=== PATIENT | female | born 1970 | race Caucasian/White ===

== ENCOUNTER 2023-01-04 07:28 | Outpatient (REF) | payer OTHER, SELFPAY ==
--- NOTE | ~2023-01-04 | US_ITS ---
EXAMINATION: US ABDOMEN COMPLETE CLINICAL INFORMATION: Right upper quadrant abdominal pain. COMPARISON: None available. TECHNIQUE: Real-time imaging of the abdominal viscera. FINDINGS: PANCREAS: Normal. ABDOMINAL AORTA: The proximal, mid, and distal segments are normal in caliber. INFERIOR VENA CAVA: Visualized portions are normal. LIVER: Normal. The liver is normal in size. The liver contour is normal. Parenchymal echogenicity is normal. No focal hepatic lesion. There is no intrahepatic biliary duct dilatation seen. GALLBLADDER: Gallbladder is contracted. No gallstones are seen. Gallbladder wall thickness is increased measuring 6 mm. This may be related to contracted gallbladder. COMMON BILE DUCT: Slightly dilated measuring 0.9 cm in diameter. RIGHT KIDNEY: Normal. No hydronephrosis. No renal calculi or focal parenchymal lesions. The kidney measures 11.5 cm in maximum dimension. LEFT KIDNEY: Normal. No hydronephrosis. No renal calculi or focal parenchymal lesions. The kidney measures 12.0 cm in maximum dimension. SPLEEN: Normal. The spleen measures 9.4 cm in maximum dimension. FREE FLUID: None. US/US abdomen complete IMPRESSION: Contracted gallbladder. Mild dilatation of the common bile duct. No gallstones seen.
[2023-01-04 08:32] LABS: MANUAL DIFF FLAG NO
[2023-01-04 09:07] LABS: Basophils Percent Auto 0.4 % (0-2); Eosinophils Absolute Auto 0.1 X10*3/uL (0.0-0.4); Eosinophils Percent Auto 2.8 % (0-4); Hematocrit 39.9 % (37.0-47.0); Hemoglobin 13.5 g/dl (12.0-16.0); Imm Gran Abs Auto 0.01 X10*3/uL (0.00-0.03); Imm Gran Pct Auto 0.2 % (0.0-0.4); Lymphocytes Absolute Auto 1.4 X10*3/uL (1.2-4.9); Lymphocytes Percent Auto 30.7 % (20-40); Mean Corpuscular HGB Conc 33.8 g/dl (31.0-35.0); Mean Corpuscular Hemoglobin 31.6 pg (27.0-33.0); Mean Corpuscular Volume 93.4 fL (80.0-98.0); Mean Platelet Volume 9.6 fL (9.4-12.3); Monocytes Absolute Auto 0.5 X10*3/uL (0.1-1.2); Monocytes Percent Auto 10.6 % (2-11); Neutrophils Absolute Auto 2.6 x10*3/uL (2.0-8.3); Neutrophils Percent Auto 55.3 % (45-73); Platelet Count 231 X10*3/uL (160-400); Red Blood Count 4.27 X10*6/uL (4.20-5.50); Red Cell Distribution Width 12.3 % (11.0-16.0); White Blood Count 4.6 X10*3/uL (4.8-10.8)
[2023-01-04 09:47] LABS: Alanine Aminotransferase 18 U/L (0-31); Albumin Level 4.6 g/dL (3.5-5.0); Alkaline Phosphatase 52 U/L (39-117); Anion Gap 15 (12-20); Aspartate Amino Transferase 25 U/L (5-31); Bilirubin Total 0.4 mg/dL (0.0-1.0); Blood Urea Nitrogen 18 mg/dL (9-16); Calcium 9.6 mg/dL (8.4-10.2); Carbon Dioxide 28 mmol/L (22-29); Chloride 103 mmol/L (96-108); Cholesterol 266 mg/dL; Estimated Glomerular Filt Rate > 60; Glucose Fasting 96 mg/dL (60-99); HDL Cholesterol 75 mg/dL; LDL Cholesterol Calculated 175 mg/dl; Potassium 4.3 mmol/L (3.3-5.1); Sodium 142 mmol/L (135-145); Total Protein 7.1 g/dL (6.5-8.0); Triglycerides 84 mg/dL
[2023-01-04 10:09] LABS: Thyroid Stimulating Hormone 2.34 uIU/mL (0.32-4.0)
== END 2023-01-04 07:29 | disposition home or self-care (01) ==
LOC: HO.US 07:28
PROVIDERS: Absent Provider Internal Medicine; PCP Internal Medicine; Visit Provider Internal Medicine
DX: Z13.0 Encounter for screening for diseases of the blood and blood-forming organs and certain disorders involving the immune mechanism (principal); R10.11 Right upper quadrant pain; I10 Essential (primary) hypertension; E03.9 Hypothyroidism, unspecified; E78.5 Hyperlipidemia, unspecified
CPT/HCPCS: 36415; 76700; 80053; 80061; 84443; 85025

== ENCOUNTER 2023-01-05 08:09 | Day surgery (SDC) | payer OTHER, SELFPAY ==
--- NOTE | 2023-01-04 10:57 | P.CONAN_ITS ---
Documented by User: Grazyna Smith NP 01/04/23 11:01 HPI - Anesthesia Eval Consult details Narrative: 52yo F for Colonoscopy Chronic prn opioids [facility] Active Problems Active Problems: All Active Problems (Updated 01/04/23 @ 10:18 by Lucie Hyatt RN) Hypertension (Acute) Back pain (Acute) Past Medical History Medical History Back pain Hypertension Kidney stones S/P extracorporeal shock wave therapy Family History Family History Mother No problems noted. Father No problems noted. Surgical History Surgical History H/O cosmetic plastic surgery History of tonsillectomy and adenoidectomy Hx of tonsillectomy Social History Social History Housing: House Patient Tobacco Use Status: Never used Tobacco e-Cigarette/Vaping Use: Never Used Second Hand Smoke Exposure: No Use of substances other than those prescribed or required for medical reasons: No Are you DNR?: No Advance Directives: No Advance Directives Information Provided: Yes service: No Current occupational status: disabled Cognitive needs: No Hearing needs: No Vision needs: No Meds Allergies Allergy/AdvReac Type Severity Reaction Status Date / Time Sulfa (Sulfonamide Allergy Unknown Unknown Verified 06/28/22 09:04 Antibiotics) Exam Exam Date and Time: January 04, 2023 1057 Pertinent Lab Results Pertinent Lab Results: Laboratory Tests 01/04/23 01/04/23 08:31 08:31 WBC 4.6 L Hgb 13.5 Hct 39.9 Plt Count 231 Sodium 142 Potassium 4.3 Chloride 103 Carbon Dioxide 28 BUN 18 H Creatinine 0.87 Assessment and Plan Assessment Anesthesia Assessment: Chart Reviewed Documented by User: Dulce Maria Forrester MD 01/05/23 09:17 PMF Past Medical History Medical History Back pain Hypertension Kidney stones S/P extracorporeal shock wave therapy Family History Family History Mother No problems noted. Father No problems noted. Family history of problems with anesthesia: No Surgical History Surgical History H/O cosmetic plastic surgery History of tonsillectomy and adenoidectomy Hx of tonsillectomy History of Problems with Anesthesia: No Social History Social History Housing: House Patient Tobacco Use Status: Never used Tobacco e-Cigarette/Vaping Use: Never Used Second Hand Smoke Exposure: No Use of substances other than those prescribed or required for medical reasons: No Are you DNR?: No Advance Directives: No Advance Directives Information Provided: Yes service: No Current occupational status: disabled Cognitive needs: No Hearing needs: No Vision needs: No Meds Allergies Allergy/AdvReac Type Severity Reaction Status Date / Time Sulfa (Sulfonamide Allergy Unknown Unknown Verified 06/28/22 09:04 Antibiotics) Exam Airway Mallampati Class: I TM Dist: >3cm Neck ROM: Full Loose/Missing/Broken Teeth: No Heart: rr Lungs: cta Assessment and Plan Assessment Anesthesia Assessment: Anesthesia Plan Discussed Final Anesthetic Review Family History of Problems with Anesthesia: No History of Problems with Anesthesia: No NPO: Yes ASA Class: I Final Preanesthetic Review: No Changes in Pt Med Stat, Meds/Allgs Chart Reviewed, Consent Obtained/Reviewed and Anes Risks/Benef Reviewed Patient Risk: Low Procedure Risk: Low Anesthetic Plan Anesthetic Plan: MAC: Disposition: Standard PACU
[2023-01-05 08:43] VITALS: BMI 22.3
[2023-01-05 08:51] VITALS: BP 150/91; PULSE 112; RESP 16; TEMP 37.1; O2SAT 100
[2023-01-05] MEDS: Lactated Ringers 1,000 ML 100 ML IVCONT (08:55)
[2023-01-05 10:47] VITALS: BP 126/80; PULSE 98; RESP 16; TEMP 36.3; O2SAT 99
[2023-01-05 11:02] VITALS: BP 145/91; PULSE 89; RESP 16; TEMP 36.3; O2SAT 98
--- NOTE | 2023-01-05 22:09 | OP_ITS ---
DATE OF SERVICE: 01/05/2023 SURGEON: Eric Pereira MD INDICATIONS: The patient presents for evaluation of abdominal pain and colorectal cancer screening. Full consent has been obtained from her for this, including risks of bleeding and perforation. PREOPERATIVE DIAGNOSIS: POSTOPERATIVE DIAGNOSIS: PROCEDURE PERFORMED: ESTIMATED BLOOD LOSS: COMPLICATIONS: ANESTHESIA: Medication used, monitored anesthesia care. ASSISTANTS: SPECIMENS: PREOPERATIVE DIAGNOSES: Abdominal pain and colorectal cancer screening. POSTOPERATIVE DIAGNOSES: Abdominal pain and colorectal cancer screening, hiatal hernia, rule out celiac disease, minimal gastritis, gastroesophageal reflux, colon polyp, diverticulosis, and internal hemorrhoids. PROCEDURES PERFORMED: Esophagogastroduodenoscopy with biopsies, and colonoscopy to the cecum and terminal ileum with biopsies and removal of polyps. DESCRIPTION OF PROCEDURE: Patient was placed in the left lateral decubitus position. The Olympus video gastroscope was passed in the posterior oropharynx and upper esophagus under direct vision. The scope was passed slowly to the distal esophagus. The gastroesophageal junction appeared at 35 cm. There is some slight irregularity consistent of reflux, but no definite evidence of Hayes's esophagus and no esophagitis. There is a small hiatal hernia. The scope was advanced to the pylorus and the duodenum was cannulated to the descending portion. The duodenum including the bulb appeared normal without mass or ulceration. Biopsies were obtained from the second and third portions of duodenum. The scope was withdrawn back in the stomach. The gastric antrum had some areas of erythema and edema, but no erosions or ulcerations. There was good peristalsis. Scope was retroflexed visualizing the proximal stomach carefully which appeared normal, without any sign of mass or ulceration. The scope was straightened. Biopsies were obtained from the gastric antrum. The scope was withdrawn back in the esophagus Biopsies were obtained at the EG junction at 35 cm. Proximal to that, the esophageal mucosa appeared normal. The scope was withdrawn from the patient. She was turned around for the colonoscopy. The digital rectal exam revealed no abnormalities. The Olympus video pediatric colonoscope was entered into the rectum and advanced easily to the cecum. Once in the cecum, I did identify normal appearing cecal pouch in the appendiceal orifice and a normal appearing ileocecal valve. The terminal ileum was cannulated and appeared normal. The scope was withdrawn back in the colon. The entire cecum and ileocecal valve appeared normal. Scope was slowly withdrawn assessing all mucosal surface carefully. Preparation was excellent. There was a mild amount of sigmoid diverticulosis. There was no sign of colitis or angiodysplasia . In the proximal rectum was an approximately 3 mm polyp, which was biopsied and completely removed with the cold biopsy forceps. I did not visualize any sign of other polyps. In the rectum, the scope was retroflexed visualizing internal hemorrhoids, but no other pathology. The rectal mucosa appeared normal. Scope was straightened and withdrawn from the patient. She tolerated the procedure well and was returned to the recovery area in stable condition. IMPRESSION: 1. Hiatal hernia. 2. Rule out gastritis. 3. Rule out celiac disease. 4. Rectal polyp. 5. Diverticulosis. 6. Internal hemorrhoids. PLAN: The results of the biopsies will be checked. If the polyp is a tubular adenoma, I would recommend a repeat colonoscopy in 5 years. If it is only hyperplastic, I would recommend a followup colonoscopy in 10 years. Given her ongoing symptoms and some inflammation with some signs of reflux noted, I will put her on a trial of omeprazole 20 mg daily for couple of months to see if that gives her any relief of her abdominal pain. A recent gallbladder ultrasound was negative for gallstones, but did show some thickening of the gallbladder wall with a contracted gallbladder. I will also order a HIDA scan with CCK to rule out acalculous cholecystis. She will be followed up in the office as well. This has all been discussed with . MD NAVJOT Mijares/ALEN / [id number] MTDD
--- NOTE | 2023-01-05 22:34 | PM.OP ---
Brief Operative Note Date of Service: 01/05/23 Pre-op diagnosis: Abdominal pain, Screening Post-op diagnosis: other (Hiatal hernia, Rectal polyp) Procedure: EGD with biopsies, Colonoscopy to the cecum with biopsy/removal of polyp Surgeon: Eric Pereira Anesthesia: MAC Was an Annual Greenhouse Manager used for this Procedure?: No Estimated blood loss (mL): 2.0 Pathology: other (A. Descending duodenum B. Gastric antrum C. EG Junction at 35cm D. Rectal polyp) Condition: stable Disposition: PACU
== END 2023-01-05 12:14 | disposition home or self-care (01) ==
PROVIDERS: PCP Internal Medicine; Visit Provider Internal Medicine
PROC: 0DJD8ZZ Inspection of Lower Intestinal Tract, Via Natural or Artificial Opening Endoscopic (ICD-10-PCS; CPT 45378; principal; 2023-01-05 09:30)
DX: Z12.11 Encounter for screening for malignant neoplasm of colon (principal); K62.1 Rectal polyp; K57.30 Diverticulosis of large intestine without perforation or abscess without bleeding; K64.8 Other hemorrhoids; R10.11 Right upper quadrant pain; K29.50 Unspecified chronic gastritis without bleeding; K21.9 Gastro-esophageal reflux disease without esophagitis; K44.9 Diaphragmatic hernia without obstruction or gangrene; I10 Essential (primary) hypertension; M54.9 Dorsalgia, unspecified; G89.29 Other chronic pain; Z87.442 Personal history of urinary calculi
CPT/HCPCS: 45380; 43239; 88305; 88342

== ENCOUNTER → 2023-02-11 09:29 | Outpatient (REF) | payer OTHER, SELFPAY ==
--- NOTE | ~2023-02-11 | NM_ITS ---
EXAMINATION: BILIARY TRACT IMAGING STUDY WITH CCK CLINICAL INFORMATION: Right upper quadrant abdominal pain, abnormal gallbladder ultrasound.. COMPARISON: No previous biliary scan is available for comparison. Abdominal ultrasound dated 01/04/2023 is available for comparison.. TECHNIQUE: Serial gamma scintillation camera images were obtained over the abdomen for a total observation period of 90 minutes following the intravenous administration of 5 mCi Tc-99m present in. FINDINGS: There is good concentration of activity in the liver by 5 minutes post injection. Biliary activity is visualized by 10 minutes. The gallbladder is well visualized by 50 minutes. Small bowel is well visualized by 25 minutes. At 60 minutes post radiopharmaceutical injection, a 30-minute infusion of 1.0 micrograms Sincalide was then begun and an additional 40 minutes of images were obtained. There is good emptying of the gallbladder. By the end of the study there is good clearance of activity from the liver and visualization of diffuse small bowel activity. The calculated gallbladder ejection fraction is 95% (normal gallbladder ejection fraction is greater than 35%). NM/NM hepatobiliary w pharm IMPRESSION: Visualization of the gallbladder is evidence of a patent cystic duct and strong evidence against the diagnosis of acute cholecystitis. The common bile duct is patent. Gallbladder emptying and ejection fraction are normal. Liver function appears normal.
== END ==
LOC: HO.NUCMED 09:29
PROVIDERS: PCP Internal Medicine; Visit Provider Internal Medicine
DX: R10.11 Right upper quadrant pain (principal); R93.2 Abnormal findings on diagnostic imaging of liver and biliary tract
CPT/HCPCS: 78227; A9537

== ENCOUNTER 2023-05-24 11:26 | Outpatient (AMB) | payer OTHER, SELFPAY ==
--- NOTE | 2023-05-24 11:38 | MHC.PC.OV ---
Vital Signs 05/24/23 11:39 Height 5 ft 4 in Weight 133 lb 4 oz BMI 22.9 BP 120/64 Blood Pressure Location Lt brachial Position Sitting Pulse 76 Pulse Source Pulse Oximeter Pulse Oximetry (%) 96 Oxygen Delivery Method Room Air Intake Visit Reasons: Medication Follow Up Intake Note: Patient is here to follow up on medication review. Medical Equipment Repair Technician Required: No Sales Operations Lead: Not Required per policy Accompanied by: Self / Same As Patient Allergies Sulfa (Sulfonamide Antibiotics) Allergy (Unknown, Verified 05/24/23 11:39) Unknown Medication List - Last Reconciled 05/25/23 by Hua Duarte MD atenolol 25 mg PO DAILY tfpmyrbqbu-uuntkdmtzmqbn-foig 50-325-40 mg 2 tabs PO Q4-6H PRN cyclobenzaprine 10 mg PO TID 30 days dicyclomine 20 mg PO QID 30 days hydrochlorothiazide 25 mg PO DAILY lorazepam 1 mg PO TID PRN 28 days oxycodone 5 mg PO Q4H PRN oxycodone-acetaminophen 7.5-325 mg 1 tab PO Q4H PRN 28 days Tobacco use date assessed: 05/24/23 Dental Screening Dental Screen Date: 05/24/23 Did you have a dental visit in the last 12 months?: No Did you have a dental problem in the last 6 months where you did not have access to dental care?: No Was dental information given to patient?: Patient has dentist HPI Medication Follow Up HPI Details chronic back pain on rx; stable ;compliant [facility] Medical History (Updated 05/25/23 @ 09:06 by Hua Duarte MD) Back pain Hypertension Kidney stones S/P extracorporeal shock wave therapy Surgical History H/O cosmetic plastic surgery History of tonsillectomy and adenoidectomy Hx of tonsillectomy Family History Mother No problems noted. Father No problems noted. Social History (Updated 05/24/23 @ 11:42 by GIDEON Vidal) Housing: House Alcohol intake: current Alcohol intake frequency: a few times a week Patient Tobacco Use Status: Never used Tobacco e-Cigarette/Vaping Use: Never Used Second Hand Smoke Exposure: No service: No Current occupational status: disabled Cognitive needs: No Hearing needs: No Vision needs: Yes (reading glasses) Questionnaire PHQ-9 Over the last 2 weeks, how often have you been bothered by any of the following problems? 1. Little interest or pleasure in doing things: not at all 2. Feeling down, depressed, or hopeless: not at all 3. Trouble falling or staying asleep, or sleeping too much: not at all 4. Feeling tired or having little energy: not at all 5. Poor appetite or overeating: not at all 6. Feeling bad about yourself - or that you are a failure or have let yourself or your family down: not at all 7. Trouble concentrating on things, such as reading the newspaper or watching television: not at all 8. Moving or speaking so slowly that other people could have noticed. Or the opposite - being so fidgety or restless that you have been moving around a lot more than usual: not at all 9. Thoughts that you would be better off or of hurting yourself in some way: not at all Total score: 0 Depression Screening Interpretation: Negative Source: Developed by Drs. Eric Muñoz, Cecelia Mckinney, Sukumar Maradiaga and colleagues, with an educational favian from [employer]. Thrive Questionnaire Date Thrive assessed: 05/24/23 I am a: Patient What is your living situation today?: I have a steady place to live Within the past 12 months, did the food you bought not last and you didn't have the money to get more?: Never true Within the past 12 months, did you worry whether your food would run out before you got money to buy more?: Never true Do you have trouble paying for medicines?: No Do you have trouble getting transportation to medical appointments?: No Do you have trouble paying your heating and electricity bill?: No Do you have trouble taking care of your child, family member or friend?: No Do you have trouble with day-to-day activities such as bathing, preparing meals, shopping, managing finances, etc.?: No Are you currently unemployed and looking for a job?: No Are you interested in more education?: No Currently or been in a relationship where the following occur: no concerns reported AUDIT C Alcohol Use Questionnaire (AUDIT-C) 1. How often do you have a drink containing alcohol?: 2-3 times a week 2. How many drinks containing alcohol do you have on a typical day when you are drinking?: 1 or 2 Total Score: 3 YULY-7 AMB Questionnaire YULY-7 Date YULY - 7 assessed: 05/24/23 Feeling nervous, anxious, or on edge: 1 = Several days (currently on medication) Not being able to stop or control worryin = Not at all Worrying too much about different things: 0 = Not at all Trouble relaxin = Not at all Being so restless that it is hard to sit still: 0 = Not at all Becoming easily annoyed or irritable: 0 = Not at all Feeling afraid as if something awful might happen: 0 = Not at all Total YULY-7 score (0-4 normal; 5-9 mild; 10-14 moderate; 15-21 severe): 1 Source: Developed by Drs. Eric Muñoz, Cecelia Mckinney, Sukumar Maradiaga and colleagues, with an educational favian from [employer]. Review of Systems Const Denies chills, Denies headache(s) and Denies weight loss ENT Denies headache(s) Card Denies chest pain, Denies syncope, Denies irregular heart rhythm and Denies dyspnea Resp Denies chest congestion, Denies cough and Denies dyspnea GI Denies abdominal pain, Denies change in stool character, Denies nausea and Denies vomiting Musc Denies deformity and Denies joint swelling Neuro Denies syncope and Denies headache(s) Physical exam (Primary Care) Vital Signs: Last Vital Signs Pulse 76 05/24/23 11:39 BP 120/64 05/24/23 11:39 Pulse Ox 96 05/24/23 11:39 Oxygen Delivery Method Room Air 05/24/23 11:39 BMI result Body Mass Index 22.9 Tobacco/Smoking Status: Tobacco use Status Tobacco use date assessed 05/24/23 05/24/23 11:44 Patient Tobacco Use Status Never used Tobacco 05/24/23 11:44 e-Cigarette/Vaping Use Never Used 05/24/23 11:44 PHQ-9: PHQ-9 Score PHQ-9: Total score 0 05/24/23 11:44 Depression Screening Interpretation: Negative Thrive Assessment: Date of Thrive Assessment Date Thrive assessed 05/24/23 05/24/23 11:44 Currently or been in a relationship where the following occur: no concerns reported Const General: comfortable, no acute distress and alert Neck Neck: Yes no lymphadenopathy Thyroid: Thyroid normal Resp Effort & Inspection: normal respiratory effort Auscultation: clear to auscultation bilaterally Percussion: percussion normal Cardio Jugular venous distension: no JVD Palpation: normal PMI Rate: regular rate Rhythm: regular rhythm Heart sounds: S1 normal heart sound present and S2 normal heart sound present GI Inspection: Yes normal to inspection Palpation (GI): No hepatosplenomegaly present Skin General skin exam: no rashes or lesions noted Extrem General: Yes no clubbing, cyanosis or edema Assessment and Plan Assessment & Plan (1) Back pain: Code(s): M54.9 - Dorsalgia, unspecified Plan: stable; same rx Medications: Refilled dicyclomine 20 mg PO QID 120 tabs 2RF 30 days Coding Level of Care Code Est Pt Level 3 (27225) Diagnoses Back pain M54.9
[2023-05-24 11:39] VITALS: BP 120/64; PULSE 76; O2SAT 96; BMI 22.9
== END 2023-05-24 11:56 | disposition home or self-care (01) ==
PROVIDERS: PCP Internal Medicine; Visit Provider Internal Medicine
DX: M54.9 Dorsalgia, unspecified (principal)
CPT/HCPCS: 99213

== ENCOUNTER 2023-08-10 08:19 | Outpatient (AMB) | payer OTHER, SELFPAY ==
[2023-08-10 08:31] VITALS: BP 140/80; PULSE 58; O2SAT 98; BMI 23.9
--- NOTE | 2023-08-10 08:31 | A.OFFPC_ITS ---
Vital Signs 08/10/23 08:31 Height 5 ft 4 in Weight 139 lb BMI 23.9 BP 140/80 H Blood Pressure Location Lt brachial Position Sitting Pulse 58 Pulse Source Pulse Oximeter Pulse Oximetry (%) 98 Oxygen Delivery Method Room Air Intake Visit Reasons: Med review Design Manager: Not Required per policy Accompanied by: Self / Same As Patient Allergies Sulfa (Sulfonamide Antibiotics) Allergy (Unknown, Verified 08/10/23 08:32) Unknown Medication List - Last Reconciled 08/10/23 by Hua Duarte MD atenolol 25 mg PO DAILY npndblewst-tzllqgneqcvkg-oxha 50-325-40 mg 2 tabs PO Q4-6H PRN cyclobenzaprine 10 mg PO TID 30 days dicyclomine 20 mg PO QID 30 days hydrochlorothiazide 25 mg PO DAILY lorazepam 1 mg PO TID PRN 28 days oxycodone 5 mg PO Q4H PRN oxycodone-acetaminophen 7.5-325 mg 1 tab PO Q4H PRN 28 days Tobacco use date assessed: 05/24/23 Dental Screening Dental Screen Date: 08/10/23 Did you have a dental visit in the last 12 months?: No Did you have a dental problem in the last 6 months where you did not have access to dental care?: No Was dental information given to patient?: Patient has dentist HPI Med review HPI Details chronic back pain on rx; doing well and compliant [facility] Medical History S/P extracorporeal shock wave therapy Kidney stones Hypertension Back pain Surgical History H/O cosmetic plastic surgery Hx of tonsillectomy History of tonsillectomy and adenoidectomy Family History Mother No problems noted. Father No problems noted. Social History Housing: House Alcohol intake: current Alcohol intake frequency: a few times a week Patient Tobacco Use Status: Never used Tobacco e-Cigarette/Vaping Use: Never Used Second Hand Smoke Exposure: No service: No Current occupational status: disabled Cognitive needs: No Hearing needs: No Vision needs: Yes (reading glasses) Questionnaire PHQ-9 Over the last 2 weeks, how often have you been bothered by any of the following problems? 1. Little interest or pleasure in doing things: not at all 2. Feeling down, depressed, or hopeless: not at all 3. Trouble falling or staying asleep, or sleeping too much: not at all 4. Feeling tired or having little energy: not at all 5. Poor appetite or overeating: not at all 6. Feeling bad about yourself - or that you are a failure or have let yourself or your family down: not at all 7. Trouble concentrating on things, such as reading the newspaper or watching television: not at all 8. Moving or speaking so slowly that other people could have noticed. Or the opposite - being so fidgety or restless that you have been moving around a lot more than usual: not at all 9. Thoughts that you would be better off or of hurting yourself in some way: not at all Total score: 0 Depression Screening Interpretation: Negative Depression Screening Done: Yes 93906 - PHQ-9 Billing: Yes Source: Developed by Drs. Eric Muñoz, Cecelia Mckinney, Sukumar Maradiaga and colleagues, with an educational favian from [employer]. Thrive Questionnaire Date Thrive assessed: 05/24/23 AUDIT C Alcohol Use Questionnaire (AUDIT-C) 1. How often do you have a drink containing alcohol?: 2-3 times a week 2. How many drinks containing alcohol do you have on a typical day when you are drinking?: 1 or 2 Total Score: 3 YULY-7 AMB Questionnaire YULY-7 Date YULY - 7 assessed: 05/24/23 Source: Developed by Drs. Eric Muñoz, Cecelia Mckinney, Sukumar Maradiaga and colleagues, with an educational favian from [employer]. Review of Systems Const Denies chills, Denies headache(s) and Denies weight loss ENT Denies headache(s) Card Denies chest pain, Denies syncope, Denies irregular heart rhythm and Denies dyspnea Resp Denies chest congestion, Denies cough and Denies dyspnea GI Denies abdominal pain, Denies change in stool character, Denies nausea and Denies vomiting Musc Denies deformity and Denies joint swelling Neuro Denies syncope and Denies headache(s) Physical exam (Primary Care) Vital Signs: Last Vital Signs Pulse 58 08/10/23 08:31 BP 140/80 H 08/10/23 08:31 Pulse Ox 98 08/10/23 08:31 Oxygen Delivery Method Room Air 08/10/23 08:31 BMI result Body Mass Index 23.9 Tobacco/Smoking Status: Tobacco use Status Tobacco use date assessed 05/24/23 08/10/23 08:36 Patient Tobacco Use Status Never used Tobacco 08/10/23 08:36 e-Cigarette/Vaping Use Never Used 08/10/23 08:36 PHQ-9: PHQ-9 Score PHQ-9: Total score 0 08/10/23 08:49 Depression Screening Interpretation: Negative Thrive Assessment: Date of Thrive Assessment Date Thrive assessed 05/24/23 08/10/23 08:36 Const General: cooperative, comfortable, no acute distress and alert Neck Neck: Yes no lymphadenopathy Thyroid: Thyroid normal Resp Effort & Inspection: normal respiratory effort Auscultation: clear to auscultation bilaterally Percussion: percussion normal Cardio Jugular venous distension: no JVD Palpation: normal PMI Rate: regular rate Rhythm: regular rhythm Heart sounds: S1 normal heart sound present and S2 normal heart sound present GI Inspection: Yes normal to inspection Palpation (GI): No hepatosplenomegaly present Skin General skin exam: no rashes or lesions noted Extrem General: Yes no clubbing, cyanosis or edema Assessment and Plan Assessment & Plan (1) Back pain: Code(s): M54.9 - Dorsalgia, unspecified Plan: stable; same rx Orders: Orders Influenza [id number] Immunization Today Z23 - Encounter for immunization Medications: New flu vacc [id number] 6mos up(PF) 0.5 mL IM ONCE 0.5 mL 0RF Z23 - Encounter for immunization Coding Level of Care Code Est Pt Level 3 (18919) Diagnoses Back pain M54.9
== END 2023-08-10 08:53 | disposition home or self-care (01) ==
PROVIDERS: PCP Internal Medicine; Visit Provider Internal Medicine
DX: M54.9 Dorsalgia, unspecified (principal); Z23 Encounter for immunization
CPT/HCPCS: 90471; 90686; 99213

== ENCOUNTER 2023-09-07 10:39 | Outpatient (AMB) | payer OTHER, SELFPAY ==
[2023-09-07 10:41] VITALS: BP 136/88; PULSE 64; O2SAT 99; BMI 23.7
--- NOTE | 2023-09-07 10:41 | MHC.PC.OV ---
Vital Signs 09/07/23 10:41 Height 5 ft 4 in Weight 138 lb BMI 23.7 BP 136/88 Blood Pressure Location Lt brachial Position Sitting Pulse 64 Pulse Source Pulse Oximeter Pulse Oximetry (%) 99 Oxygen Delivery Method Room Air Intake Visit Reasons: Med Management Twisting Machine Operator Required: No Belly Packer: Not Required per policy Accompanied by: Self / Same As Patient Allergies Sulfa (Sulfonamide Antibiotics) Allergy (Unknown, Verified 09/07/23 10:42) Unknown Medication List - Last Reconciled 09/07/23 by Hua Duarte MD atenolol 25 mg PO DAILY krnyevruko-lfdkwyirwkvoj-wrgi 50-325-40 mg 2 tabs PO Q4-6H PRN cyclobenzaprine 10 mg PO TID 30 days dicyclomine 20 mg PO QID hydrochlorothiazide 25 mg PO DAILY lorazepam 1 mg PO TID PRN 28 days oxycodone 5 mg PO Q4H PRN oxycodone-acetaminophen 7.5-325 mg 1 tab PO Q4H PRN 28 days Tobacco use date assessed: 05/24/23 Dental Screening Dental Screen Date: 09/07/23 Did you have a dental visit in the last 12 months?: Yes Did you have a dental problem in the last 6 months where you did not have access to dental care?: No Was dental information given to patient?: Patient has dentist HPI Med Management HPI Details chronic back pain on rx; doing well; compliant [facility] Medical History S/P extracorporeal shock wave therapy Kidney stones Hypertension Back pain Surgical History H/O cosmetic plastic surgery Hx of tonsillectomy History of tonsillectomy and adenoidectomy Family History Mother No problems noted. Father No problems noted. Social History Housing: House Alcohol intake: current Alcohol intake frequency: a few times a week Patient Tobacco Use Status: Never used Tobacco e-Cigarette/Vaping Use: Never Used Second Hand Smoke Exposure: No service: No Current occupational status: disabled Cognitive needs: No Hearing needs: No Vision needs: Yes (reading glasses) Questionnaire Thrive Questionnaire Date Thrive assessed: 05/24/23 YULY-7 AMB Questionnaire YULY-7 Date YULY - 7 assessed: 05/24/23 Source: Developed by Drs. Eric Muñoz, Cecelia Mckinney, Sukumar Maradiaga and colleagues, with an educational favian from [employer]. Review of Systems Const Denies chills, Denies headache(s) and Denies weight loss ENT Denies headache(s) Card Denies chest pain, Denies syncope, Denies irregular heart rhythm and Denies dyspnea Resp Denies chest congestion, Denies cough and Denies dyspnea GI Denies abdominal pain, Denies change in stool character, Denies nausea and Denies vomiting Musc Denies deformity and Denies joint swelling Neuro Denies syncope and Denies headache(s) Physical exam (Primary Care) Vital Signs: Last Vital Signs Pulse 64 09/07/23 10:41 BP 136/88 09/07/23 10:41 Pulse Ox 99 09/07/23 10:41 Oxygen Delivery Method Room Air 09/07/23 10:41 BMI result Body Mass Index 23.7 Tobacco/Smoking Status: Tobacco use Status Tobacco use date assessed 05/24/23 09/07/23 10:42 Patient Tobacco Use Status Never used Tobacco 09/07/23 10:42 e-Cigarette/Vaping Use Never Used 09/07/23 10:42 Thrive Assessment: Date of Thrive Assessment Date Thrive assessed 05/24/23 09/07/23 10:42 Const General: cooperative, comfortable, no acute distress and alert Neck Neck: Yes no lymphadenopathy Thyroid: Thyroid normal Resp Effort & Inspection: normal respiratory effort Auscultation: clear to auscultation bilaterally Percussion: percussion normal Cardio Jugular venous distension: no JVD Palpation: normal PMI Rate: regular rate Rhythm: regular rhythm Heart sounds: S1 normal heart sound present and S2 normal heart sound present GI Inspection: Yes normal to inspection Palpation (GI): No hepatosplenomegaly present Skin General skin exam: no rashes or lesions noted Extrem General: Yes no clubbing, cyanosis or edema Assessment and Plan Assessment & Plan (1) Back pain: Code(s): M54.9 - Dorsalgia, unspecified Plan: stable; same rx Medications: Refilled lorazepam 1 mg PO TID 28 days PRN 84 tabs 5RF anxiety qqkwgwnrom-ybvsoozpabsmb-fopb 50-325-40 mg do not exceed 6 tabs per 24 hrs 2 tabs PO Q4-6H PRN 90 tabs 0RF pain oxycodone Partial Fill upon patient request. 5 mg PO Q4H PRN 168 tabs 0RF pain Coding Level of Care Code Est Pt Level 3 (76949) Diagnoses Back pain M54.9
== END 2023-09-07 11:53 | disposition home or self-care (01) ==
PROVIDERS: PCP Internal Medicine; Visit Provider Internal Medicine
DX: M54.9 Dorsalgia, unspecified (principal)
CPT/HCPCS: 99213

== ENCOUNTER 2023-10-05 09:40 | Outpatient (AMB) | payer OTHER, SELFPAY ==
[2023-10-05 09:41] VITALS: BP 124/60; PULSE 64; O2SAT 96; BMI 23.9
--- NOTE | 2023-10-05 09:41 | MHC.PC.OV ---
Vital Signs 10/05/23 09:41 Height 5 ft 4 in Weight 139 lb BMI 23.9 BP 124/60 Blood Pressure Location Lt brachial Position Sitting Pulse 64 Pulse Source Pulse Oximeter Pulse Oximetry (%) 96 Oxygen Delivery Method Room Air Intake Visit Reasons: Med management Bakery Demonstrator Required: No Food Beverage Supervisor: Not Required per policy Accompanied by: Self / Same As Patient Allergies Sulfa (Sulfonamide Antibiotics) Allergy (Unknown, Verified 10/05/23 09:41) Unknown Medication List - Last Reconciled 10/05/23 by Hua Duarte MD atenolol 25 mg PO DAILY kicxyxuhyk-mwcbudlegounq-hulv 50-325-40 mg 2 tabs PO Q4-6H PRN cyclobenzaprine 10 mg PO TID 30 days dicyclomine 20 mg PO QID hydrochlorothiazide 25 mg PO DAILY lorazepam 1 mg PO TID PRN 28 days oxycodone 5 mg PO Q4H PRN oxycodone-acetaminophen 7.5-325 mg 1 tab PO Q4H PRN 28 days Tobacco use date assessed: 10/05/23 Dental Screening Dental Screen Date: 10/05/23 Did you have a dental visit in the last 12 months?: Yes Did you have a dental problem in the last 6 months where you did not have access to dental care?: No Was dental information given to patient?: Patient has dentist HPI Med management HPI Details chronic back pain on rx; doing well and compliant [facility] Medical History S/P extracorporeal shock wave therapy Kidney stones Hypertension Back pain Surgical History H/O cosmetic plastic surgery Hx of tonsillectomy History of tonsillectomy and adenoidectomy Family History Mother No problems noted. Father No problems noted. Social History Housing: House Alcohol intake: current Alcohol intake frequency: a few times a week Patient Tobacco Use Status: Never used Tobacco e-Cigarette/Vaping Use: Never Used Second Hand Smoke Exposure: No service: No Current occupational status: disabled Cognitive needs: No Hearing needs: No Vision needs: Yes (reading glasses) Questionnaire PHQ-9 Over the last 2 weeks, how often have you been bothered by any of the following problems? 1. Little interest or pleasure in doing things: not at all 2. Feeling down, depressed, or hopeless: not at all 3. Trouble falling or staying asleep, or sleeping too much: not at all 4. Feeling tired or having little energy: not at all 5. Poor appetite or overeating: not at all 6. Feeling bad about yourself - or that you are a failure or have let yourself or your family down: not at all 7. Trouble concentrating on things, such as reading the newspaper or watching television: not at all 8. Moving or speaking so slowly that other people could have noticed. Or the opposite - being so fidgety or restless that you have been moving around a lot more than usual: not at all 9. Thoughts that you would be better off or of hurting yourself in some way: not at all Total score: 0 Depression Screening Interpretation: Negative Depression Screening Done: Yes 92361 - PHQ-9 Billing: Yes Source: Developed by Drs. Eric Muñoz, Cecelia Mckinney, Sukumar Maradiaga and colleagues, with an educational favian from [employer] Thrive Questionnaire Date Thrive assessed: 10/05/23 I am a: Patient What is your living situation today?: I have a steady place to live Within the past 12 months, did the food you bought not last and you didn't have the money to get more?: Never true Within the past 12 months, did you worry whether your food would run out before you got money to buy more?: Never true Do you have trouble paying for medicines?: No Do you have trouble getting transportation to medical appointments?: No Do you have trouble paying your heating and electricity bill?: No Do you have trouble taking care of your child, family member or friend?: No Do you have trouble with day-to-day activities such as bathing, preparing meals, shopping, managing finances, etc.?: No Are you currently unemployed and looking for a job?: No Are you interested in more education?: No Please select the resources that you would like help with: None AUDIT C Alcohol Use Questionnaire (AUDIT-C) 1. How often do you have a drink containing alcohol?: 2-3 times a week 2. How many drinks containing alcohol do you have on a typical day when you are drinking?: 1 or 2 Total Score: 3 YULY-7 AMB Questionnaire YULY-7 Date YULY - 7 assessed: 10/05/23 Feeling nervous, anxious, or on edge: 0 = Not at all Not being able to stop or control worryin = Not at all Worrying too much about different things: 0 = Not at all Trouble relaxin = Not at all Being so restless that it is hard to sit still: 0 = Not at all Becoming easily annoyed or irritable: 0 = Not at all Feeling afraid as if something awful might happen: 0 = Not at all Total YULY-7 score (0-4 normal; 5-9 mild; 10-14 moderate; 15-21 severe): 0 Source: Developed by Drs. Eric Muñoz, Cecelia Mckinney, Sukumar Maradiaga and colleagues, with an educational favian from [employer] Review of Systems Const Denies chills, Denies headache(s) and Denies weight loss ENT Denies headache(s) Card Denies chest pain, Denies syncope, Denies irregular heart rhythm and Denies dyspnea Resp Denies chest congestion, Denies cough and Denies dyspnea GI Denies abdominal pain, Denies change in stool character, Denies nausea and Denies vomiting Musc Denies deformity and Denies joint swelling Neuro Denies syncope and Denies headache(s) Physical exam (Primary Care) Vital Signs: Last Vital Signs Pulse 64 10/05/23 09:41 BP 124/60 10/05/23 09:41 Pulse Ox 96 10/05/23 09:41 Oxygen Delivery Method Room Air 10/05/23 09:41 BMI result Body Mass Index 23.9 Tobacco/Smoking Status: Tobacco use Status Tobacco use date assessed 10/05/23 10/05/23 09:42 Patient Tobacco Use Status Never used Tobacco 10/05/23 09:42 e-Cigarette/Vaping Use Never Used 10/05/23 09:42 PHQ-9: PHQ-9 Score PHQ-9: Total score 0 10/05/23 09:46 Depression Screening Interpretation: Negative Thrive Assessment: Date of Thrive Assessment Date Thrive assessed 10/05/23 10/05/23 09:42 Const General: cooperative, comfortable, no acute distress and alert Neck Neck: Yes no lymphadenopathy Thyroid: Thyroid normal Resp Effort & Inspection: normal respiratory effort Auscultation: clear to auscultation bilaterally Percussion: percussion normal Cardio Jugular venous distension: no JVD Palpation: normal PMI Rate: regular rate Rhythm: regular rhythm Heart sounds: S1 normal heart sound present and S2 normal heart sound present GI Inspection: Yes normal to inspection Palpation (GI): No hepatosplenomegaly present Skin General skin exam: no rashes or lesions noted Extrem General: Yes no clubbing, cyanosis or edema Assessment and Plan Assessment & Plan (1) Back pain: Code(s): M54.9 - Dorsalgia, unspecified Plan: stable; same rx Medications: Refilled qwtheblynw-nvjlsjgocpdah-rcfb 50-325-40 mg do not exceed 6 tabs per 24 hrs 2 tabs PO Q4-6H PRN 90 tabs 0RF pain lorazepam 1 mg PO TID 28 days PRN 84 tabs 5RF anxiety oxycodone Partial Fill upon patient request. 5 mg PO Q4H PRN 168 tabs 0RF pain Coding Level of Care Code Est Pt Level 3 (16314) Diagnoses Back pain M54.9
== END 2023-10-05 10:12 | disposition home or self-care (01) ==
PROVIDERS: PCP Internal Medicine; Visit Provider Internal Medicine
DX: M54.9 Dorsalgia, unspecified (principal)
CPT/HCPCS: 99213

== ENCOUNTER 2024-01-13 11:48 | Outpatient (AMB) | payer OTHER, SELFPAY ==
[2024-01-13 11:49] VITALS: BP 120/68; PULSE 78; O2SAT 92; BMI 23.2
--- NOTE | 2024-01-13 11:49 | A.OFFPC_ITS ---
Vital Signs 01/13/24 11:49 Height 5 ft 4 in Weight 135 lb BMI 23.2 BP 120/68 Blood Pressure Location Lt brachial Position Sitting Pulse 78 Pulse Source Pulse Oximeter Pulse Oximetry (%) 92 Oxygen Delivery Method Room Air Intake Visit Reasons: med visit Dental Officer Required: No Customer Assistance Representative: Not Required per policy Accompanied by: Self / Same As Patient Allergies Sulfa (Sulfonamide Antibiotics) Allergy (Unknown, Verified 01/13/24 11:49) Unknown Medication List - Last Reconciled 01/13/24 by Hua Duarte MD atenolol 25 mg PO DAILY pwcaalzwme-svmlrnmqtavvl-juzr 50-325-40 mg 2 tabs PO Q4-6H PRN cyclobenzaprine 10 mg PO TID 30 days dicyclomine 20 mg PO QID hydrochlorothiazide 25 mg PO DAILY lorazepam 1 mg PO TID PRN 28 days oxycodone 5 mg PO Q4H PRN oxycodone-acetaminophen 7.5-325 mg 1 tab PO Q4H PRN 28 days Tobacco use date assessed: 10/05/23 Dental Screening Dental Screen Date: 10/05/23 HPI med visit HPI Details chronic back pain on rx; compliant [facility] Medical History S/P extracorporeal shock wave therapy Kidney stones Hypertension Back pain Surgical History H/O cosmetic plastic surgery Hx of tonsillectomy History of tonsillectomy and adenoidectomy Family History Mother No problems noted. Father No problems noted. Social History Housing: House Alcohol intake: current Alcohol intake frequency: a few times a week Patient Tobacco Use Status: Never used Tobacco e-Cigarette/Vaping Use: Never Used Second Hand Smoke Exposure: No service: No Current occupational status: disabled Cognitive needs: No Hearing needs: No Vision needs: Yes (reading glasses) Questionnaire Thrive Questionnaire Date Thrive assessed: 10/05/23 YULY-7 AMB Questionnaire YULY-7 Date YULY - 7 assessed: 10/05/23 Source: Developed by Drs. Eric Muñoz, Cecelia Mckinney, Sukumar Maradiaga and colleagues, with an educational favian from [employer]. Review of Systems Const Denies chills, Denies headache(s) and Denies weight loss ENT Denies headache(s) Card Denies chest pain, Denies syncope, Denies irregular heart rhythm and Denies dyspnea Resp Denies chest congestion, Denies cough and Denies dyspnea GI Denies abdominal pain, Denies change in stool character, Denies nausea and Denies vomiting Musc Denies deformity and Denies joint swelling Neuro Denies syncope and Denies headache(s) Physical exam (Primary Care) Vital Signs: Last Vital Signs Pulse 78 01/13/24 11:49 BP 120/68 01/13/24 11:49 Pulse Ox 92 01/13/24 11:49 Oxygen Delivery Method Room Air 01/13/24 11:49 BMI result Body Mass Index 23.2 Tobacco/Smoking Status: Tobacco use Status Tobacco use date assessed 10/05/23 01/13/24 11:50 Patient Tobacco Use Status Never used Tobacco 01/13/24 11:50 e-Cigarette/Vaping Use Never Used 01/13/24 11:50 Thrive Assessment: Date of Thrive Assessment Date Thrive assessed 10/05/23 01/13/24 11:50 Const General: cooperative, comfortable, no acute distress and alert Neck Neck: Yes no lymphadenopathy Thyroid: Thyroid normal Resp Effort & Inspection: normal respiratory effort Auscultation: clear to auscultation bilaterally Percussion: percussion normal Cardio Jugular venous distension: no JVD Palpation: normal PMI Rate: regular rate Rhythm: regular rhythm Heart sounds: S1 normal heart sound present and S2 normal heart sound present GI Inspection: Yes normal to inspection Palpation (GI): No hepatosplenomegaly present Skin General skin exam: no rashes or lesions noted Extrem General: Yes no clubbing, cyanosis or edema Assessment and Plan Assessment & Plan (1) Back pain: Code(s): M54.9 - Dorsalgia, unspecified Plan: stable; same rx Orders: Orders XR chest 2V Today R05.9 - Cough, unspecified Medications: Refilled oxycodone Partial Fill upon patient request. 5 mg PO Q4H PRN 168 tabs 0RF pain cyclobenzaprine 10 mg PO TID 90 tabs 0RF 30 days lorazepam 1 mg PO TID PRN 84 tabs 5RF anxiety 28 days Coding Level of Care Code Est Pt Level 3 (44756) Diagnoses Back pain M54.9
== END 2024-01-13 14:08 | disposition home or self-care (01) ==
PROVIDERS: PCP Internal Medicine; Visit Provider Internal Medicine
DX: M54.9 Dorsalgia, unspecified (principal)
CPT/HCPCS: 99213

== ENCOUNTER 2024-03-14 10:16 | Outpatient (AMB) | payer OTHER, SELFPAY ==
[2024-03-14 10:20] VITALS: BP 120/70; PULSE 72; O2SAT 98; BMI 23.0
--- NOTE | 2024-03-14 10:20 | A.OFFPC_ITS ---
Vital Signs 03/14/24 10:20 Height 5 ft 4 in Weight 134 lb BMI 23.0 BP 120/70 Blood Pressure Location Lt brachial Position Sitting Pulse 72 Pulse Source Pulse Oximeter Pulse Oximetry (%) 98 Oxygen Delivery Method Room Air Intake Visit Reasons: Med Management Pl Sql Developer Required: No Extrusion Press Adjuster: Not Required per policy Accompanied by: Self / Same As Patient Allergies Sulfa (Sulfonamide Antibiotics) Allergy (Unknown, Verified 03/14/24 10:20) Unknown Tobacco use date assessed: 10/05/23 Dental Screening Dental Screen Date: 10/05/23 HPI Med Management HPI Details lumbar disc disease on ct; stable on current regimen PFSH Medical History S/P extracorporeal shock wave therapy Kidney stones Hypertension Back pain Surgical History H/O cosmetic plastic surgery Hx of tonsillectomy History of tonsillectomy and adenoidectomy Family History Mother No problems noted. Father No problems noted. Social History Housing: House Alcohol intake: current Alcohol intake frequency: a few times a week Patient Tobacco Use Status: Never used Tobacco e-Cigarette/Vaping Use: Never Used Second Hand Smoke Exposure: No service: No Current occupational status: disabled Cognitive needs: No Hearing needs: No Vision needs: Yes (reading glasses) Questionnaire Thrive Questionnaire Date Thrive assessed: 10/05/23 YULY-7 AMB Questionnaire YULY-7 Date YULY - 7 assessed: 10/05/23 Source: Developed by Drs. Eric Muñoz, Cecelia Mckinney, Sukumar Maradiaga and colleagues, with an educational favian from [employer]. Review of Systems Const Denies chills, Denies headache(s) and Denies weight loss ENT Denies headache(s) Card Denies chest pain, Denies syncope, Denies irregular heart rhythm and Denies dyspnea Resp Denies chest congestion, Denies cough and Denies dyspnea GI Denies abdominal pain, Denies change in stool character, Denies nausea and Denies vomiting Musc Denies deformity and Denies joint swelling Neuro Denies syncope and Denies headache(s) Physical exam (Primary Care) Vital Signs: Last Vital Signs Pulse 72 03/14/24 10:20 BP 120/70 03/14/24 10:20 Pulse Ox 98 03/14/24 10:20 Oxygen Delivery Method Room Air 03/14/24 10:20 BMI result Body Mass Index 23.0 Tobacco/Smoking Status: Tobacco use Status Tobacco use date assessed 10/05/23 03/14/24 10:21 Patient Tobacco Use Status Never used Tobacco 03/14/24 10:21 e-Cigarette/Vaping Use Never Used 03/14/24 10:21 Thrive Assessment: Date of Thrive Assessment Date Thrive assessed 10/05/23 03/14/24 10:21 Const General: cooperative, comfortable, no acute distress and alert Neck Neck: Yes no lymphadenopathy Thyroid: Thyroid normal Resp Effort & Inspection: normal respiratory effort Auscultation: clear to auscultation bilaterally Percussion: percussion normal Cardio Jugular venous distension: no JVD Palpation: normal PMI Rate: regular rate Rhythm: regular rhythm Heart sounds: S1 normal heart sound present and S2 normal heart sound present GI Inspection: Yes normal to inspection Palpation (GI): No hepatosplenomegaly present Skin General skin exam: no rashes or lesions noted Extrem General: Yes no clubbing, cyanosis or edema Assessment and Plan Assessment & Plan (1) Lumbar disc disease: Code(s): M51.9 - Unspecified thoracic, thoracolumbar and lumbosacral intervertebral disc disorder Plan: stable; same rx Coding Level of Care Code Est Pt Level 3 (80172) Diagnoses Lumbar disc disease M51.9
== END 2024-03-14 10:38 | disposition home or self-care (01) ==
PROVIDERS: PCP Internal Medicine; Visit Provider Internal Medicine
DX: M51.9 Unspecified thoracic, thoracolumbar and lumbosacral intervertebral disc disorder (principal)
CPT/HCPCS: 99213

== ENCOUNTER 2024-05-01 12:50 | Outpatient (AMB) | payer BC, SELFPAY ==
--- NOTE | 2024-05-01 12:47 | MHC.PC.OV ---
Intake Visit Reasons: MED review Clinical Secretary Required: No Accompanied by: Self / Same As Patient Allergies Sulfa (Sulfonamide Antibiotics) Allergy (Unknown, Verified 05/01/24 12:48) Unknown Tobacco use date assessed: 10/05/23 Dental Screening Dental Screen Date: 10/05/23 HPI MED review HPI Details chronic back pain due to spondylosis; doing well on rx PFSH Medical History S/P extracorporeal shock wave therapy Kidney stones Hypertension Back pain Surgical History H/O cosmetic plastic surgery Hx of tonsillectomy History of tonsillectomy and adenoidectomy Family History Mother No problems noted. Father No problems noted. Social History Housing: House Alcohol intake: current Alcohol intake frequency: a few times a week Patient Tobacco Use Status: Never used Tobacco e-Cigarette/Vaping Use: Never Used Second Hand Smoke Exposure: No service: No Current occupational status: disabled Cognitive needs: No Hearing needs: No Vision needs: Yes (reading glasses) Questionnaire Thrive Questionnaire Date Thrive assessed: 10/05/23 YULY-7 AMB Questionnaire YULY-7 Date YULY - 7 assessed: 10/05/23 Source: Developed by Drs. Eric Muñoz, Cecelia Mckinney, Sukumar Maradiaga and colleagues, with an educational favian from [email or web address]. Review of Systems Const Denies chills, Denies headache(s) and Denies weight loss ENT Denies headache(s) Card Denies chest pain, Denies syncope, Denies irregular heart rhythm and Denies dyspnea Resp Denies chest congestion, Denies cough and Denies dyspnea GI Denies abdominal pain, Denies change in stool character, Denies nausea and Denies vomiting Musc Denies deformity and Denies joint swelling Neuro Denies syncope and Denies headache(s) Physical exam (Primary Care) Tobacco/Smoking Status: Tobacco use Status Tobacco use date assessed 10/05/23 05/01/24 12:49 Patient Tobacco Use Status Never used Tobacco 05/01/24 12:49 e-Cigarette/Vaping Use Never Used 05/01/24 12:49 Thrive Assessment: Date of Thrive Assessment Date Thrive assessed 10/05/23 05/01/24 12:49 Telehealth Telehealth Telehealth Platform: Telephone Location of provider rendering services: practice address Location of patient: address on file Patient Identification confirmed using: Name, : Yes Telehealth method: voice only Patient verbally consented to treatment: Yes Patient verbally consented to billing insurance company: Yes Patient informed of any privacy concerns related to visit: Yes Minutes spent on Phone/Video with Pt.: 15 (telephone) Assessment and Plan Assessment & Plan (1) Lumbar disc disease: Code(s): M51.9 - Unspecified thoracic, thoracolumbar and lumbosacral intervertebral disc disorder Plan: stable; same rx Medications: Refilled oxycodone Partial Fill upon patient request. 5 mg PO Q4H PRN 164 tabs 0RF pain Coding Level of Care Code Tele Est Pt Level 3 (23701) Diagnoses Lumbar disc disease M51.9
== END 2024-05-01 15:22 | disposition home or self-care (01) ==
LOC: HO.HMGH 12:50
PROVIDERS: PCP Internal Medicine; Visit Provider Internal Medicine
DX: M51.9 Unspecified thoracic, thoracolumbar and lumbosacral intervertebral disc disorder (principal)
CPT/HCPCS: 99442

== ENCOUNTER 2024-06-25 13:58 | Outpatient (AMB) | payer BC, SELFPAY ==
[2024-06-25 14:01] VITALS: BP 128/72; PULSE 90; O2SAT 97; BMI 23.3
--- NOTE | 2024-06-25 14:01 | A.OFFPC_ITS ---
Vital Signs 06/25/24 14:01 Height 5 ft 4 in Weight 136 lb BMI 23.3 BP 128/72 Blood Pressure Location Lt brachial Position Sitting Pulse 90 Pulse Source Pulse Oximeter Pulse Oximetry (%) 97 Oxygen Delivery Method Room Air Intake Visit Reasons: med refills Research Biostatistician Required: No Accompanied by: Self / Same As Patient Allergies Sulfa (Sulfonamide Antibiotics) Allergy (Unknown, Verified 06/25/24 14:03) Unknown Medication List - Last Reconciled 06/25/24 by Hua Duarte MD atenolol 25 mg PO DAILY adazbwftny-qgoqcgckjklev-romp 50-325-40 mg 2 tabs PO Q4-6H PRN cyclobenzaprine 10 mg PO TID 30 days dicyclomine 20 mg PO QID hydrochlorothiazide 25 mg PO DAILY lorazepam 1 mg PO TID PRN 30 days oxycodone 5 mg PO Q4H PRN 4 days oxycodone 5 mg PO Q4H PRN oxycodone-acetaminophen 7.5-325 mg 1 tab PO Q4H PRN 28 days Tobacco use date assessed: 10/05/23 Dental Screening Dental Screen Date: 10/05/23 HPI med refills HPI Details chronic lumbar disc disease on rx; doing well and compliant [facility] Medical History S/P extracorporeal shock wave therapy Kidney stones Hypertension Back pain Surgical History H/O cosmetic plastic surgery Hx of tonsillectomy History of tonsillectomy and adenoidectomy Family History Mother No problems noted. Father No problems noted. Social History Housing: House Alcohol intake: current Alcohol intake frequency: a few times a week Patient Tobacco Use Status: Never used Tobacco Tobacco use type: Cigarette e-Cigarette/Vaping Use: Never Used Second Hand Smoke Exposure: No service: No Current occupational status: disabled Cognitive needs: No Hearing needs: No Vision needs: Yes (reading glasses) Questionnaire Thrive Questionnaire Date Thrive assessed: 10/05/23 Are you currently unemployed and looking for a job?: I choose not to answer this question YULY-7 AMB Questionnaire YULY-7 Date YULY - 7 assessed: 10/05/23 Source: Developed by Drs. Eric Muñoz, Cecelia Mckinney, Sukumar Maradiaga and colleagues, with an educational favian from [employer]. Review of Systems Const Denies chills, Denies headache(s) and Denies weight loss ENT Denies headache(s) Card Denies chest pain, Denies syncope, Denies irregular heart rhythm and Denies dyspnea Resp Denies chest congestion, Denies cough and Denies dyspnea GI Denies abdominal pain, Denies change in stool character, Denies nausea and Denies vomiting Musc Denies deformity and Denies joint swelling Neuro Denies syncope and Denies headache(s) Physical exam (Primary Care) Vital Signs: Last Vital Signs Pulse 90 06/25/24 14:01 BP 128/72 06/25/24 14:01 Pulse Ox 97 06/25/24 14:01 Oxygen Delivery Method Room Air 06/25/24 14:01 BMI result Body Mass Index 23.3 Tobacco/Smoking Status: Tobacco use Status Tobacco use date assessed 10/05/23 06/25/24 14:07 Patient Tobacco Use Status Never used Tobacco 06/25/24 14:07 Tobacco use type Cigarette 06/25/24 14:07 e-Cigarette/Vaping Use Never Used 06/25/24 14:07 Thrive Assessment: Date of Thrive Assessment Date Thrive assessed 10/05/23 06/25/24 14:07 Const General: cooperative, comfortable, no acute distress and alert Neck Neck: Yes no lymphadenopathy Thyroid: Thyroid normal Resp Effort & Inspection: normal respiratory effort Auscultation: clear to auscultation bilaterally Percussion: percussion normal Cardio Jugular venous distension: no JVD Palpation: normal PMI Rate: regular rate Rhythm: regular rhythm Heart sounds: S1 normal heart sound present and S2 normal heart sound present GI Inspection: Yes normal to inspection Palpation (GI): No hepatosplenomegaly present Skin General skin exam: no rashes or lesions noted Extrem General: Yes no clubbing, cyanosis or edema Assessment and Plan Assessment & Plan (1) Lumbar disc disease: Code(s): M51.9 - Unspecified thoracic, thoracolumbar and lumbosacral intervertebral disc disorder Plan: stable; same rx Medications: Changed From lorazepam 1 mg PO TID 30 days PRN 90 tabs 0RF anxiety To lorazepam 1 mg PO TID 90 days PRN 360 tabs 1RF anxiety From oxycodone Partial Fill upon patient request. 5 mg PO Q4H 4 days PRN 112 tabs 0RF pain To oxycodone Partial Fill upon patient request. 5 mg PO Q4H 28 days PRN 112 tabs 0RF pain Refilled atenolol 25 mg PO DAILY 90 tabs 2RF Coding Level of Care Code Est Pt Level 3 (89183) Diagnoses Lumbar disc disease M51.9
== END 2024-06-25 14:17 | disposition home or self-care (01) ==
PROVIDERS: PCP Internal Medicine; Visit Provider Internal Medicine
DX: M51.9 Unspecified thoracic, thoracolumbar and lumbosacral intervertebral disc disorder (principal)

== ENCOUNTER → 2024-06-25 13:58 | Outpatient (BNVA) | payer BC, SELFPAY | PROVIDERS: PCP Internal Medicine; Visit Provider Internal Medicine ==

== ENCOUNTER 2024-08-02 09:40 | Outpatient (AMB) | payer BC, SELFPAY ==
[2024-08-02 09:42] VITALS: BP 134/76; PULSE 79; O2SAT 99; BMI 23.9
--- NOTE | 2024-08-02 09:42 | MHC.PC.OV ---
Vital Signs 08/02/24 09:42 Height 5 ft 4 in Weight 139 lb BMI 23.9 BP 134/76 Blood Pressure Location Lt brachial Position Sitting Pulse 79 Pulse Source Pulse Oximeter Pulse Oximetry (%) 99 Oxygen Delivery Method Room Air Intake Visit Reasons: med refill follow up Intake Note: Pt requests oxycodone quantity be fixed - back to 168 instead of 164. Pumping Station Engineer Required: No Accompanied by: Self / Same As Patient Allergies Sulfa (Sulfonamide Antibiotics) Allergy (Unknown, Verified 08/02/24 09:42) Unknown Medication List - Last Reconciled 08/02/24 by Hua Duarte MD atenolol 25 mg PO DAILY rywcjrooxn-bzealvazjluih-rlwk 50-325-40 mg 2 tabs PO Q4-6H PRN cyclobenzaprine 10 mg PO TID 30 days dicyclomine 20 mg PO QID hydrochlorothiazide 25 mg PO DAILY lorazepam 1 mg PO TID PRN 90 days oxycodone 5 mg PO Q4H PRN Tobacco use date assessed: 10/05/23 Dental Screening Dental Screen Date: 10/05/23 HPI med refill follow up HPI Details chronic back pain; stable on rx PFSH Medical History S/P extracorporeal shock wave therapy Kidney stones Hypertension Back pain Surgical History H/O cosmetic plastic surgery Hx of tonsillectomy History of tonsillectomy and adenoidectomy Family History Mother No problems noted. Father No problems noted. Social History Housing: House Alcohol intake: current Alcohol intake frequency: a few times a week Patient Tobacco Use Status: Never used Tobacco Tobacco use type: Cigarette e-Cigarette/Vaping Use: Never Used Second Hand Smoke Exposure: No service: No Current occupational status: disabled Cognitive needs: No Hearing needs: No Vision needs: Yes (reading glasses) Questionnaire Thrive Questionnaire Date Thrive assessed: 10/05/23 Are you currently unemployed and looking for a job?: I choose not to answer this question YULY-7 AMB Questionnaire YULY-7 Date YULY - 7 assessed: 10/05/23 Source: Developed by Drs. Eric Muñoz, Cecelia Mckinney, Sukumar Maradiaga and colleagues, with an educational favian from [employer]. Review of Systems Const Denies chills, Denies headache(s) and Denies weight loss ENT Denies headache(s) Card Denies chest pain, Denies syncope, Denies irregular heart rhythm and Denies dyspnea Resp Denies chest congestion, Denies cough and Denies dyspnea GI Denies abdominal pain, Denies change in stool character, Denies nausea and Denies vomiting Musc Denies deformity and Denies joint swelling Neuro Denies syncope and Denies headache(s) Physical exam (Primary Care) Vital Signs: Last Vital Signs Pulse 79 08/02/24 09:42 BP 134/76 08/02/24 09:42 Pulse Ox 99 08/02/24 09:42 Oxygen Delivery Method Room Air 08/02/24 09:42 BMI result Body Mass Index 23.9 Tobacco/Smoking Status: Tobacco use Status Tobacco use date assessed 10/05/23 08/02/24 09:43 Patient Tobacco Use Status Never used Tobacco 08/02/24 09:43 Tobacco use type Cigarette 08/02/24 09:43 e-Cigarette/Vaping Use Never Used 08/02/24 09:43 Thrive Assessment: Date of Thrive Assessment Date Thrive assessed 10/05/23 08/02/24 09:43 Const General: cooperative, comfortable, no acute distress and alert Neck Neck: Yes no lymphadenopathy Thyroid: Thyroid normal Resp Effort & Inspection: normal respiratory effort Auscultation: clear to auscultation bilaterally Percussion: percussion normal Cardio Jugular venous distension: no JVD Palpation: normal PMI Rate: regular rate Rhythm: regular rhythm Heart sounds: S1 normal heart sound present and S2 normal heart sound present GI Inspection: Yes normal to inspection Palpation (GI): No hepatosplenomegaly present Skin General skin exam: no rashes or lesions noted Extrem General: Yes no clubbing, cyanosis or edema Coding Level of Care Code Est Pt Level 3 (61348) Diagnoses Back pain M54.9 Assessment & Plan Assessment & Plan (1) Back pain: Code(s): M54.9 - Dorsalgia, unspecified Category: Medical Plan: stable; same rx Medications: Refilled oxycodone Partial Fill upon patient request.chronic pain patient 5 mg PO Q4H PRN 168 tabs 0RF pain M51.9 - Unspecified thoracic, thoracolumbar and lumbosacral intervertebral disc disorder, M54.9 - Dorsalgia, unspecified
== END 2024-08-02 11:47 | disposition home or self-care (01) ==
LOC: HO.HMCH 09:40
PROVIDERS: PCP Internal Medicine; Visit Provider Internal Medicine
DX: M54.9 Dorsalgia, unspecified (principal)

== ENCOUNTER → 2024-08-02 09:40 | Outpatient (BNVA) | payer BC, SELFPAY | PROVIDERS: PCP Internal Medicine; Visit Provider Internal Medicine ==

== ENCOUNTER 2024-08-31 11:30 | Outpatient (AMB) | payer BC, SELFPAY ==
--- NOTE | 2024-08-31 11:35 | A.OFFPC_ITS ---
Vital Signs 08/31/24 11:37 Height 5 ft 4 in Weight 145 lb BMI 24.9 BP 110/72 Blood Pressure Location Lt brachial Position Sitting Pulse 68 Pulse Source Pulse Oximeter Pulse Oximetry (%) 97 Oxygen Delivery Method Room Air Intake Visit Reasons: Med review / Refill Intake Note: Patient is here to follow up on med review and refill. Self Defense Instructor Required: No Addressograph Operator: Not Required per policy Accompanied by: Self / Same As Patient Allergies Sulfa (Sulfonamide Antibiotics) Allergy (Unknown, Verified 08/31/24 11:37) Unknown Medication List - Last Reconciled 08/31/24 by Hua Duarte MD atenolol 25 mg PO DAILY djveobtpkb-gbalcbhkpzacg-hbjw 50-325-40 mg 2 tabs PO Q4-6H PRN cyclobenzaprine 10 mg PO TID 30 days dicyclomine 20 mg PO QID hydrochlorothiazide 25 mg PO DAILY lorazepam 1 mg PO TID PRN 90 days oxycodone 5 mg PO Q4H PRN Tobacco use date assessed: 08/31/24 Dental Screening Dental Screen Date: 10/05/23 HPI Med review / Refill HPI Details chronic back pain on rx; doing well and compliant ON LICENSE OF [facility] Medical History S/P extracorporeal shock wave therapy Kidney stones Hypertension Back pain Surgical History H/O cosmetic plastic surgery Hx of tonsillectomy History of tonsillectomy and adenoidectomy Family History Mother No problems noted. Father No problems noted. Social History Housing: House Alcohol intake: current Alcohol intake frequency: a few times a week Patient Tobacco Use Status: Never used Tobacco Tobacco use type: Cigarette e-Cigarette/Vaping Use: Never Used Second Hand Smoke Exposure: No service: No Current occupational status: disabled Cognitive needs: No Hearing needs: No Vision needs: Yes (reading glasses) Questionnaire Thrive Questionnaire Date Thrive assessed: 10/05/23 Are you currently unemployed and looking for a job?: I choose not to answer this question YULY-7 AMB Questionnaire YULY-7 Date YULY - 7 assessed: 10/05/23 Source: Developed by Drs. Eric Muñoz, Cecelia Mckinney, Sukumar Maradiaga and colleagues, with an educational favian from [employer]. Review of Systems Const Denies chills, Denies headache(s) and Denies weight loss ENT Denies headache(s) Card Denies chest pain, Denies syncope, Denies irregular heart rhythm and Denies dyspnea Resp Denies chest congestion, Denies cough and Denies dyspnea GI Denies abdominal pain, Denies change in stool character, Denies nausea and Denies vomiting Musc Denies deformity and Denies joint swelling Neuro Denies syncope and Denies headache(s) Physical exam (Primary Care) Vital Signs: Last Vital Signs Pulse 68 08/31/24 11:37 BP 110/72 08/31/24 11:37 Pulse Ox 97 08/31/24 11:37 Oxygen Delivery Method Room Air 08/31/24 11:37 BMI result Body Mass Index 24.9 Tobacco/Smoking Status: Tobacco use Status Tobacco use date assessed 08/31/24 08/31/24 11:43 Patient Tobacco Use Status Never used Tobacco 08/31/24 11:43 Tobacco use type Cigarette 08/31/24 11:43 e-Cigarette/Vaping Use Never Used 08/31/24 11:43 Thrive Assessment: Date of Thrive Assessment Date Thrive assessed 10/05/23 08/31/24 11:43 Const General: cooperative, comfortable, no acute distress and alert Neck Neck: Yes no lymphadenopathy Thyroid: Thyroid normal Resp Effort & Inspection: normal respiratory effort Auscultation: clear to auscultation bilaterally Percussion: percussion normal Cardio Jugular venous distension: no JVD Palpation: normal PMI Rate: regular rate Rhythm: regular rhythm Heart sounds: S1 normal heart sound present and S2 normal heart sound present GI Inspection: Yes normal to inspection Palpation (GI): No hepatosplenomegaly present Skin General skin exam: no rashes or lesions noted Extrem General: Yes no clubbing, cyanosis or edema Office Procedures Flu Questionnaire Does the patient have a severe egg allergy?: No Does the patient have severe life threatening allergies?: No Does the patient have a fever or illness today?: No Has the patient ever had Guillain-Sheridan Syndrome?: No Has the patient ever had any past reaction to a flu shot?: No Immunizations Fluarix Triv 6433-6147 (PF) 45 mcg (15 mcg x 3)/0.5 mL IM syringe Performing Provider: Hua Duarte MD [facility] Administered by: Stella Barkley RN on 08/31/24 11:57 Dose Route Admin Location Dispensed Lot Number Expiration Date [facility] Lead Java Developer Architect 0.5 mL IM Left Deltoid 0.5 mL [id number] 03/25/25 [id number] [employer] VIS Given Date VIS Provided VIS Publication Date 08/31/24 Single Vaccine 21 Eligibility Eligibility Date Funding Source Not [facility] Eligible 08/31/24 Private Coding Level of Care Code Est Pt Level 3 (83529) Diagnoses Back pain M54.9 Assessment & Plan Assessment & Plan (1) Back pain: Code(s): M54.9 - Dorsalgia, unspecified Category: Medical Plan: stable; same rx Orders: Orders Influenza [id number] Immunization Today Z23 - Encounter for immunization Comprehensive [place]. Panel Fast Today Z13.9 - Encounter for screening, unspecified Lipid Panel Today Z13.220 - Encounter for screening for lipoid disorders Complete Blood Count Auto Diff Today Z13.0 - Encounter for screening for diseases of the blood and blood-forming organs and certain disorders involving the immune mechanism Thyroid Stimulating Hormone Today Z13.29 - Encounter for screening for other suspected endocrine disorder Medications: Refilled oxycodone Partial Fill upon patient request.chronic pain patient 5 mg PO Q4H PRN 168 tabs 0RF pain M51.9 - Unspecified thoracic, thoracolumbar and lumbosacral intervertebral disc disorder, M54.9 - Dorsalgia, unspecified
[2024-08-31 11:37] VITALS: BP 110/72; PULSE 68; O2SAT 97; BMI 24.9
== END 2024-08-31 11:57 | disposition home or self-care (01) ==
PROVIDERS: PCP Internal Medicine; Visit Provider Internal Medicine
DX: Z23 Encounter for immunization (principal); M54.9 Dorsalgia, unspecified

== ENCOUNTER → 2024-08-31 11:30 | Outpatient (BNVA) | payer BC, SELFPAY | PROVIDERS: PCP Internal Medicine; Visit Provider Internal Medicine | DX: G89.29 Other chronic pain (principal); M54.9 Dorsalgia, unspecified; Z79.891 Long term (current) use of opiate analgesic; Z23 Encounter for immunization | CPT/HCPCS: 90471; 90656 ==

== ENCOUNTER 2025-01-10 11:58 | Outpatient (AMB) | payer BC, SELFPAY ==
[2025-01-10 12:14] VITALS: BP 148/84; PULSE 83; TEMP 36.1; O2SAT 97; BMI 25.2
--- NOTE | 2025-01-10 12:14 | A.OFFPC_ITS ---
Vital Signs 01/10/25 12:14 Height 5 ft 4 in Weight 147 lb BMI 25.2 BP 148/84 H Blood Pressure Location Lt brachial Position Sitting Pulse 83 Pulse Source Pulse Oximeter Temp 97.0 F Temp Source Temporal Artery Scan Pulse Oximetry (%) 97 Oxygen Delivery Method Room Air Intake Visit Reasons: MANPREET DR Duarte Bottom Man Required: No Accompanied by: Self / Same As Patient Allergies Sulfa (Sulfonamide Antibiotics) Allergy (Unknown, Verified 01/10/25 12:32) Unknown Medication List - Last Reconciled 01/10/25 by Eamon Mcqueen MD atenolol 25 mg PO DAILY tvrnymbknp-fkjlykroajcie-zeom 50-325-40 mg 2 tabs PO Q4-6H PRN cyclobenzaprine 10 mg PO TID 30 days dicyclomine 20 mg PO QID hydrochlorothiazide 25 mg PO DAILY lorazepam 1 mg PO TID PRN 90 days oxycodone 5 mg PO Q4H PRN Tobacco use date assessed: 01/10/25 Dental Screening Dental Screen Date: 01/10/25 Did you have a dental visit in the last 12 months?: Yes Did you have a dental problem in the last 6 months where you did not have access to dental care?: No Was dental information given to patient?: Patient has dentist HPI MANPREET DR Duarte HPI Details Patient comes in today for her follow-up visit - is transferring over from Dr. Duarte, who retired from the practice last month Patient states that she suffers from chronic back pain and has been on her current pain medication for years now States that she has not really needed to increase or escalate her dose over the years and that her current dose helped to at least keep her functional somewhat States that she has seen Dr. Velasquez for her back issues in the past and was r eportedly advised that there are no surgical indications at the time and that she should just continue following up with her PCP for pain management She does have MRI of the thoracic and lumbar spine done but these were from many years ago - thoracic spine MRI done in 2012 revealed the presence of multilevel thoracic spine degenerative disc disease and lumbar spine MRI done in 2007 revealed primarily L4-L5 disc disease Patient states that other than her back pain, she feels okay She denies any headaches or dizziness Denies any chest pains, no increased shortness of breath although she's had a recurrent cough for at least a couple of weeks now States that she coughs up only minimal phlegm at times and 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 Father No problems noted. Social History Housing: House Alcohol intake: current Alcohol intake frequency: a few times a week Patient Tobacco Use Status: Never used Tobacco Tobacco use type: Cigarette e-Cigarette/Vaping Use: Never Used Second Hand Smoke Exposure: No service: No Current occupational status: disabled Cognitive needs: No Hearing needs: No Vision needs: Yes (reading glasses) Questionnaire PHQ-9 Over the last 2 weeks, how often have you been bothered by any of the following problems? 1. Little interest or pleasure in doing things: not at all 2. Feeling down, depressed, or hopeless: not at all 3. Trouble falling or staying asleep, or sleeping too much: not at all 4. Feeling tired or having little energy: not at all 5. Poor appetite or overeating: not at all 6. Feeling bad about yourself - or that you are a failure or have let yourself or your family down: not at all 7. Trouble concentrating on things, such as reading the newspaper or watching television: not at all 8. Moving or speaking so slowly that other people could have noticed. Or the opposite - being so fidgety or restless that you have been moving around a lot more than usual: not at all 9. Thoughts that you would be better off or of hurting yourself in some way: not at all Total score: 0 Depression Screening Interpretation: Negative Depression Screening Done: Yes 19226 - PHQ-9 Billing: Yes Source: Developed by Drs. Eric Muñoz, Cecelia Mckinney, Sukumar Maradiaga and colleagues, with an educational favian from [employer]. Thrive Questionnaire Date Thrive assessed: 01/10/25 I am a: Patient What is your living situation today?: I have a steady place to live Within the past 12 months, did the food you bought not last and you didn't have the money to get more?: Never true Within the past 12 months, did you worry whether your food would run out before you got money to buy more?: Never true Do you have trouble paying for medicines?: No Do you have trouble getting transportation to medical appointments?: No Do you have trouble paying your heating and electricity bill?: No Do you have trouble taking care of your child, family member or friend?: No Do you have trouble with day-to-day activities such as bathing, preparing meals, shopping, managing finances, etc.?: No Are you currently unemployed and looking for a job?: No Are you interested in more education?: No Please select the resources that you would like help with: None Currently or been in a relationship where the following occur: No concerns reported THRIVE Score: 0 AUDIT C Alcohol Use Questionnaire (AUDIT-C) 1. How often do you have a drink containing alcohol?: Monthly or less 2. How many drinks containing alcohol do you have on a typical day when you are drinking?: 1 or 2 3. How often do you have six or more drinks on one occasion?: Never Total Score: 1 Score Reviewed/Action Taken: Yes YULY-7 AMB Questionnaire YULY-7 Date YULY - 7 assessed: 01/10/25 Feeling nervous, anxious, or on edge: 0 = Not at all Not being able to stop or control worryin = Not at all Worrying too much about different things: 0 = Not at all Trouble relaxin = Not at all Being so restless that it is hard to sit still: 0 = Not at all Becoming easily annoyed or irritable: 0 = Not at all Feeling afraid as if something awful might happen: 0 = Not at all Total YULY-7 score (0-4 normal; 5-9 mild; 10-14 moderate; 15-21 severe): 0 Source: Developed by Drs. Eric Muñoz, Cecelia Mckinney, Sukumar Maradiaga and colleagues, with an educational favian from [employer]. 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) and Denies dyspnea GI Denies abdominal pain, Denies constipation, Denies dysphagia, Denies heartburn, Denies diarrhea, Denies nausea, Denies odynophagia and Denies vomiting Denies difficulty voiding, Denies nocturia, Denies dysuria and Denies urinary urgency Musc Reports back pain (chronic) and Denies neck pain Skin/Breast Denies rash Neuro Denies dizziness and Denies headache(s) Endo Denies fatigue and Denies palpitations Physical exam (Primary Care) Vital Signs: Last Vital Signs Temp 97.0 F 01/10/25 12:14 Pulse 83 01/10/25 12:14 BP 148/84 H 01/10/25 12:14 Pulse Ox 97 01/10/25 12:14 Oxygen Delivery Method Room Air 01/10/25 12:14 BMI result Body Mass Index 25.2 Tobacco/Smoking Status: Tobacco use Status Tobacco use date assessed 01/10/25 01/10/25 12:19 Patient Tobacco Use Status Never used Tobacco 01/10/25 12:19 Tobacco use type Cigarette 01/10/25 12:19 e-Cigarette/Vaping Use Never Used 01/10/25 12:19 PHQ-9: PHQ-9 Score PHQ-9: Total score 0 01/11/25 05:42 Depression Screening Interpretation: Negative Thrive Assessment: Date of Thrive Assessment Date Thrive assessed 01/10/25 01/10/25 12:19 Currently or been in a relationship where the following occur: No concerns reported Const General: no acute distress and alert HENMT Throat: Yes posterior oropharynx normal and Yes tonsils normal (no TP congestion) Neck Neck: Yes supple and No lymphadenopathy Thyroid: Thyroid normal Resp Auscultation: clear to auscultation bilaterally, no rales, no wheezes and diminished lung sounds (slightly) bilateral Cardio Rate: regular rate Rhythm: regular rhythm Heart sounds: no murmurs GI Palpation (GI): Soft to palpation and nontender Auscultation: normal bowel sounds General: Yes no CVA tenderness Back/Spine/Pelvis Back: no CVA tenderness Thoracic/Lumbar Spine: thoracic spinal tenderness and lumbar spinal tenderness Skin Rashes: no rashes Extrem General: Yes no clubbing, cyanosis or edema Coding Level of Care Code Est Pt Level 4 (65647) Diagnoses Other chronic back pain M54.89; G89.29 Back pain location: back pain in other location Chronicity: chronic Cough, unspecified type R05.9 Cough type: unspecified Essential hypertension I10 Additional Codes YULY-7 Assessment Billing - YULY-7 Assessment Tool: YULY-7 Assessment 65169 ([id number]) PHQ-9 - 27631 - PHQ-9 Billing: Yes ([id number]) Assessment & Plan Assessment & Plan (1) Back pain: Code(s): M54.9 - Dorsalgia, unspecified Category: Medical Qualifiers: Back pain location: back pain in other location Chronicity: chronic Qualified Code(s): M54.89 - Other dorsalgia; G89.29 - Other chronic pain Plan: Thoracic spine MRI done in 2012 revealed the presence of multilevel thoracic spine degenerative disc disease and lumbar spine MRI done in 2007 revealed pr imarily L4-L5 disc disease She has also reportedly been seen Dr. Velasquez for her back issues in the past and was reportedly advised that there are no surgical indications at the time and that she should just continue following up with her PCP for pain management Reinforced sctivity and weight-lifting restrictions Will continue her on Oxycodone 5 mg Q 4 hours PRN for now (Rx refilled) but have advised patient that at some point soon I would like to lower down her dosing to no more than every 6-8 hours (maximum of 4 doses a day) rather than her current dose of 6 times a day and patient states that she is agreeable to that She also takes Cyclobenzaprine 10 mg TID PRN We will also have her get some updated x-rays of her thoracic and lumbar spine CHEMO Have advised her that at her next visit, we will also likely need her to sign a new pain management agreement and to be in compliance, we will be implementing again random pill count and urine drug screens whenever it is appropriate (2) Cough: Code(s): R05.9 - Cough, unspecified Category: Medical Qualifiers: Cough type: unspecified Qualified Code(s): R05.9 - Cough, unspecified Plan: Will send patient for chest x-rays for further evaluation (3) Essential hypertension: Code(s): I10 - Essential (primary) hypertension Category: Medical Plan: Reinforced low-sodium diet - goal is systolic BP of 120 mm or less Continue Hydrochlorothiazide 25 mg QD and Atenolol 25 mg QD Will also have patient get some follow-up labs done CHEMO she has not had any labs done in a couple of years now Plan Follow up in 1 month Orders: Orders XR thoracic spine 3V 01/10/25 M54.9 - Dorsalgia, unspecified XR lumbar spine 2-3V 01/10/25 M54.50 - Low back pain, unspecified Complete Blood Count Auto Diff 01/10/25 D64.9 - Anemia, unspecified Comprehensive [place]. Panel Fast 01/10/25 E78.00 - Pure hypercholesterolemia, unspecified Lipid Panel 01/10/25 E78.00 - Pure hypercholesterolemia, unspecified TSH reflex Free T4 01/10/25 E78.00 - Pure hypercholesterolemia, unspecified UA CC w/rflx Micro + Cult 01/10/25 R30.0 - Dysuria Vitamin D 25-OH Total 01/10/25 E55.9 - Vitamin D deficiency, unspecified XR chest 2V 01/10/25 R05.9 - Cough, unspecified Medications: Refilled lorazepam 1 mg PO TID PRN 90 tabs 0RF anxiety 90 days oxycodone Partial Fill upon patient request.chronic pain patient 5 mg PO Q4H PRN 168 tabs 0RF pain M51.9 - Unspecified thoracic, thoracolumbar and lumbosacral intervertebral disc disorder, M54.9 - Dorsalgia, unspecified
--- OUTSIDE RECORDS SUMMARY | 2025-01-10 14:54 | XMS_ITS | Patient Health Record ---
Author Organization [facility] Address [address] [place] [id number] Care Team Providers Care Software Installation Engineer Name Role Phone Hua Duarte MD Primary Care Provider Eric Ortiz Unavailable [phone] Allergies Allergen (clinical drug ingredient) Drug/Non Drug Allergy documented on EMR Reaction Allergy Type Onset Date Status Substance with sulfonamide structure and antibacterial mechanism of action (substance) Sulfa Antibiotics Unknown Drug Allergy Active Reason For Referral No Information Medications Medication SIG (Take, Route, Frequency, Duration) Notes Start Date End Date Status hydroCHLOROthiazide 25 MG Oral for 90 Active LORazepam 1 MG TAKE 1 TABLET BY MOUTH 3 TIMES A DAY NEEDED FOR ANXIETY Oral for 28 Active oxyCODONE-Acetaminophen 7.5-325 MG Oral for 28 4 every day for back pain Active Cyclobenzaprine HCl 10 MG Oral for 30 Active Atenolol 25 MG Oral for 90 Act bernardo Omeprazole 20 MG TAKE 1 CAPSULE EVERY MORNING for 90 Active Immunizations Vaccine Route Administration Date Status Comme nts Influenza Unknown 08/26/2022 Administered Social History Tobacco Use: Social History Observation Description Date Details (start date - stop date) Never Smoker NA - NA Tobacco Use/Smoking Question Answer Notes Patient is a nonsmoker Alcohol Screen Question Answer Notes Did you have a drink contain ing alcohol in the past year? Yes How often did you have a dri nk containing alcohol in the past year? 4 or more times a week (4 points) How many drinks did you have on a typical day when you were drinking in the past year? 1 or 2 drinks (0 point) How often did you have 6 or more drinks on one occasion in the past year? Never (0 point) Points 4 Interpretation Positive Section Notes: 2 glasses of wine at dinner; nonsmoker Problems Problem Type SNOMED Code ICD Code Onset Dates Problem Status W/U Status Risk Notes Problem 512075853 Encounter for screening for malignant neoplasm of colon (Z12.11) Active confirmed Problem Diverticular disease of colon (766983983) Diverticulosis of large intestine without perforation or abscess without bleeding (K57.30) Active confirmed Problem Gastroesophageal reflux disease (124689471) Gastroesophageal reflux disease (K21.9) Active confirmed Problem Gastritis (9824252) Gastritis (K29.70) Active c onfirmed Problem [id number] Abnormal gallbladder ultrasound (R93.2) Active confirmed Problem 431366114 RUQ abdominal pa in (R10.11) Active confirmed Problem 84821944 Other irritable bowel syndrome (K58.8) Active confirmed Plan Of Treatment Pending Test Test Name Order Date NUC HIDA SCAN 01/04/2023 US ABD 11/16/2022 Future Test Test Name Order Date COLONOSCOPY 11/16/2022 Insurance Providers Payer Name Payer Address Payer Phone Subscriber Number Group Number Insured Name Patient Relationship to Insured Coverage Start Date Coverage End Date [facility] [address] [facility] [phone] [id number] ELHAM SHELTON Self - patient is the insured Medical (General) History Medical History History ICD Code Kidney stones--ESWL Hypertension Chronic back pain Denies NC,DM,CVA,Lung disease,renal dise ase Surgical History Surgery Date(Month/Year) Tonsillectomy Facial cosmetic surgery
== END 2025-01-10 12:58 | disposition home or self-care (01) ==
LOC: HO.HMCH 11:58
PROVIDERS: PCP Internal Medicine; Visit Provider Internal Medicine
DX: M54.89 Other dorsalgia (principal); G89.29 Other chronic pain; R05.9 Cough, unspecified; I10 Essential (primary) hypertension

== ENCOUNTER → 2025-01-10 11:58 | Outpatient (BNVA) | payer BC, SELFPAY | PROVIDERS: PCP Internal Medicine; Visit Provider Internal Medicine | DX: M54.89 Other dorsalgia (principal); G89.29 Other chronic pain; M51.34 Other intervertebral disc degeneration, thoracic region; M51.9 Unspecified thoracic, thoracolumbar and lumbosacral intervertebral disc disorder; R05.9 Cough, unspecified; I10 Essential (primary) hypertension; Z79.891 Long term (current) use of opiate analgesic; Z79.899 Other long term (current) drug therapy | CPT/HCPCS: 96127 ==

== ENCOUNTER 2025-02-02 08:50 | Outpatient (REF) | payer BC, SELFPAY ==
--- NOTE | ~2025-02-02 | XR_ITS ---
EXAMINATION: XR CHEST CLINICAL INFORMATION: R05.9 - Cough, unspecified COMPARISON: None available. TECHNIQUE: 2 views of the chest were obtained. FINDINGS: The lungs are well-expanded and clear acute pneumonic process. The heart size and pulmonary vascularity is normal. No gross bony abnormality seen. XR/XR chest 2V IMPRESSION: Unremarkable chest exam. Electronically signed by: Darrel Dobbins MD 02/04/2025 08:13 AM EDT RP
--- NOTE | ~2025-02-02 | XR_ITS ---
EXAMINATION: XR THORACIC SPINE CLINICAL INFORMATION: M54.9 - Dorsalgia, unspecified COMPARISON: None available. TECHNIQUE: 3 views of the thoracic spine were obtained. FINDINGS: There is no fracture or bone destruction seen and the vertebral alignment is normal. There is no disc space narrowing. There is no abnormality of the paraspinal soft tissues. XR/XR thoracic spine 3V IMPRESSION: Unremarkable thoracic spine examination. Electronically signed by: Darrel Dobbins MD 02/04/2025 08:21 AM EDT
--- NOTE | ~2025-02-02 | XR_ITS ---
EXAMINATION: XR LUMBOSACRAL SPINE CLINICAL INFORMATION: M54.50 - Low back pain, unspecified COMPARISON: None available. TECHNIQUE: Three views of the lumbosacral spine. FINDINGS: There is mild straightening of lumbar lordosis. There is minimal levoscoliosis. The vertebral heights, alignment and disc heights are normal. No visible acute fracture, dislocation or lytic process seen. SI joints are symmetrical and normal. The paravertebral soft tissues are normal. XR/XR lumbar spine 2-3V IMPRESSION: Mild straightening of lumbar lordosis from spasm or positional. No visible acute fracture or dislocation seen. Electronically signed by: Darrel Dobbins MD 02/04/2025 08:19 AM EDT
[2025-02-02 09:06] LABS: MANUAL DIFF FLAG NO
[2025-02-02 10:11] LABS: Basophils Percent Auto 0.8 % (0-2); Eosinophils Absolute Auto 0.1 X10*3/uL (0.0-0.4); Eosinophils Percent Auto 2.5 % (0-4); Hematocrit 39.2 % (37.0-47.0); Hemoglobin 13.4 g/dl (12.0-16.0); Imm Gran Abs Auto 0.02 X10*3/uL (0.00-0.03); Imm Gran Pct Auto 0.4 % (0.0-0.4); Lymphocytes Absolute Auto 1.5 X10*3/uL (1.2-4.9); Lymphocytes Percent Auto 29.5 % (20-40); Mean Corpuscular HGB Conc 34.2 g/dl (31.0-35.0); Mean Corpuscular Hemoglobin 31.9 pg (27.0-33.0); Mean Corpuscular Volume 93.3 fL (80.0-98.0); Mean Platelet Volume 10.1 fL (9.4-12.3); Monocytes Absolute Auto 0.5 X10*3/uL (0.1-1.2); Neutrophils Percent Auto 56.8 % (45-73); Platelet Count 361 X10*3/uL (160-400); Red Cell Distribution Width 11.9 % (11.0-16.0); White Blood Count 5.2 X10*3/uL (4.8-10.8)
[2025-02-02 10:13] LABS: Appearance Urine Clear; Color Urine Yellow; Glucose Urine UA Negative (Negative); Leukocyte Esterase Urine Moderate (2+) (Negative); Nitrite Urine Negative (Negative); Specific Gravity - Urine 1.015 (1.005-1.025); UMIC TRIGGER UACC YES; Urine Blood Negative (Negative); Urine Ketones Trace mg/dL (Negative); Urine Protein Negative (Neg-Trace)
[2025-02-02 10:19] LABS: Bacteria Urine None Seen (None Seen); Hyaline Casts Urine 0-2 /LPF (0-2); RBC Urine 0-2 /HPF (0-2); Squamous Epithelial Cell Urine 0-2 /HPF (0-2); UACC Culture Trigger YES
[2025-02-02 10:21] LABS: Alanine Aminotransferase 47 U/L (0-31); Albumin Level 4.3 g/dL (3.5-5.0); Alkaline Phosphatase 56 U/L (39-117); Anion Gap 14 (12-20); Aspartate Amino Transferase 41 U/L (5-31); Bilirubin Total 0.5 mg/dL (0.0-1.0); Blood Urea Nitrogen 9 mg/dL (9-16); Calcium 9.7 mg/dL (8.4-10.2); Carbon Dioxide 27 mmol/L (22-29); Chloride 106 mmol/L (96-108); Cholesterol 267 mg/dL (<200); Estimated Glomerular Filt Rate > 60; Glucose Fasting 100 mg/dL (60-99); HDL Cholesterol 51 mg/dL (>40); LDL Cholesterol Calculated 196 mg/dL (<100); Potassium 3.7 mmol/L (3.3-5.1); Sodium 143 mmol/L (135-145); Total Protein 7.3 g/dL (6.5-8.0); Triglycerides 103 mg/dL (<150)
[2025-02-02 10:40] LABS: TSH reflex Free T4 1.14 uIU/mL (0.32-4.0); Vitamin D 25-OH Total 44.3 ng/mL (>30)
== END 2025-02-02 08:51 | disposition home or self-care (01) ==
LOC: HO.XRAY 08:50
PROVIDERS: PCP Internal Medicine; Visit Provider Internal Medicine
DX: R05.9 Cough, unspecified (principal); M54.50 Low back pain, unspecified; M54.9 Dorsalgia, unspecified; D64.9 Anemia, unspecified; E55.9 Vitamin D deficiency, unspecified; E78.00 Pure hypercholesterolemia, unspecified
CPT/HCPCS: 36415; 71046; 72072; 72100; 80053; 80061; 81001; 81003; 82306; 84443; 85025; 87086

== ENCOUNTER → 2025-02-02 09:12 | Outpatient (BNV) | payer BC, SELFPAY | PROVIDERS: PCP Internal Medicine; Visit Provider Radiology Diagnostic Radiology | DX: M54.9 Dorsalgia, unspecified (principal); M54.50 Low back pain, unspecified; R05.9 Cough, unspecified | CPT/HCPCS: 71046; 72072; 72100 ==

== ENCOUNTER 2025-02-07 10:28 | Outpatient (AMB) | payer BC, SELFPAY ==
[2025-02-07 10:30] VITALS: BP 116/80; PULSE 86; O2SAT 98; BMI 23.9
--- NOTE | 2025-02-07 10:30 | MHC.PC.OV ---
Vital Signs 02/07/25 10:30 Height 5 ft 4 in Weight 139 lb 4 oz BMI 23.9 BP 116/80 Blood Pressure Location Lt brachial Position Sitting Pulse 86 Pulse Source Pulse Oximeter Pulse Oximetry (%) 98 Oxygen Delivery Method Room Air Intake Visit Reasons: chronic back pain Janitorial Services Supervisor Required: No Accompanied by: Self / Same As Patient Allergies Sulfa (Sulfonamide Antibiotics) Allergy (Unknown, Verified 02/07/25 11:29) Unknown Medication List - Last Reconciled 02/07/25 by Eamon Mcqueen MD atenolol 25 mg PO DAILY [id number]-ekvdrebduskad-ezhx 50-325-40 mg 2 tabs PO Q4-6H PRN cyclobenzaprine 10 mg PO TID 30 days dicyclomine 20 mg PO QID hydrochlorothiazide 25 mg PO DAILY lorazepam 1 mg PO TID PRN 90 days oxycodone 5 mg PO Q4H PRN Tobacco use date assessed: 02/07/25 Dental Screening Dental Screen Date: 02/07/25 Did you have a dental visit in the last 12 months?: No Did you have a dental problem in the last 6 months where you did not have access to dental care?: No Was dental information given to patient?: No HPI chronic back pain HPI Details Patient comes in today for her follow up visit States that she has been experiencing on and off (heart) palpitations for the past 30 yrs States that they have been mostly mild and rarely bother her over the years but feels that her palpitations have been getting worse over the past few weeks - patient describes her symptoms as feeling more aggressive and states that she can sometimes feel these all the way up to her neck She denies any headaches, dizziness, chest pains or SOB associated with these symptoms but describes that it feels weird having some sensation going up into her neck/throat whenever she gets these episodes No nausea/vomiting, no abdominal pain No change in bowel habits noted States that her low back pain and joint pains remain adequately controlled on her current Rx She needs her Lorazepam and pain medication Rx refilled today She had her follow up labs done a few days ago - to discuss her results [facility] Medical History Vitamin D deficiency Pure hypercholesterolemia Essential hypertension S/P extracorporeal shock wave therapy Kidney stones Back pain Surgical History H/O cosmetic plastic surgery Hx of tonsillectomy History of tonsillectomy and adenoidectomy Family History Mother No problems noted. Father No problems noted. Social History Housing: House Alcohol intake: current Alcohol intake frequency: a few times a week Patient Tobacco Use Status: Never used Tobacco Tobacco use type: Cigarette e-Cigarette/Vaping Use: Never Used Second Hand Smoke Exposure: No service: No Current occupational status: disabled Cognitive needs: No Hearing needs: No Vision needs: Yes (reading glasses) Questionnaire PHQ-9 Over the last 2 weeks, how often have you been bothered by any of the following problems? 1. Little interest or pleasure in doing things: not at all 2. Feeling down, depressed, or hopeless: not at all 3. Trouble falling or staying asleep, or sleeping too much: not at all 4. Feeling tired or having little energy: not at all 5. Poor appetite or overeating: not at all 6. Feeling bad about yourself - or that you are a failure or have let yourself or your family down: not at all 7. Trouble concentrating on things, such as reading the newspaper or watching television: not at all 8. Moving or speaking so slowly that other people could have noticed. Or the opposite - being so fidgety or restless that you have been moving around a lot more than usual: not at all 9. Thoughts that you would be better off or of hurting yourself in some way: not at all Total score: 0 Depression Screening Interpretation: Negative Depression Screening Done: Yes 72430 - PHQ-9 Billing: Yes Source: Developed by Drs. Eric Muñoz, Cecelia Mckinney, Sukumar Maradiaga and colleagues, with an educational favian from [employer]. Thrive Questionnaire Date Thrive assessed: 02/07/25 I am a: Patient What is your living situation today?: I have a steady place to live Within the past 12 months, did the food you bought not last and you didn't have the money to get more?: Never true Within the past 12 months, did you worry whether your food would run out before you got money to buy more?: Never true Do you have trouble paying for medicines?: No Do you have trouble getting transportation to medical appointments?: No Do you have trouble paying your heating and electricity bill?: No Do you have trouble taking care of your child, family member or friend?: No Do you have trouble with day-to-day activities such as bathing, preparing meals, shopping, managing finances, etc.?: No Are you currently unemployed and looking for a job?: No Are you interested in more education?: No Please select the resources that you would like help with: None Currently or been in a relationship where the following occur: No concerns reported THRIVE Score: 0 AUDIT C Alcohol Use Questionnaire (AUDIT-C) 1. How often do you have a drink containing alcohol?: 2-4 times a month 2. How many drinks containing alcohol do you have on a typical day when you are drinking?: 1 or 2 3. How often do you have six or more drinks on one occasion?: Never Total Score: 2 Score Reviewed/Action Taken: Yes YULY-7 AMB Questionnaire YULY-7 Date YULY - 7 assessed: 02/07/25 Feeling nervous, anxious, or on edge: 0 = Not at all Not being able to stop or control worryin = Not at all Worrying too much about different things: 0 = Not at all Trouble relaxin = Not at all Being so restless that it is hard to sit still: 0 = Not at all Becoming easily annoyed or irritable: 0 = Not at all Feeling afraid as if something awful might happen: 0 = Not at all Total YULY-7 score (0-4 normal; 5-9 mild; 10-14 moderate; 15-21 severe): 0 Source: Developed by Drs. Eric Muñoz, Cecelia Mckinney, Sukumar Maradiaga and colleagues, with an educational favian from [employer]. Review of Systems Const Denies chills, Denies fatigue, Denies fever(s) and Denies headache(s) ENT Denies dysphagia, Denies dizziness, Denies otalgia, Denies headache(s), Denies neck pain, Denies odynophagia and Denies sore throat Card Denies chest pain, Reports palpitations (on and off - feels that these are getting worse lately - see HPI) and Denies dyspnea Resp Denies chest congestion, Denies cough and Denies dyspnea GI Denies abdominal pain, Denies constipation, Denies dysphagia, Denies heartburn, Denies diarrhea, Denies nausea, Denies odynophagia and Denies vomiting Denies difficulty voiding, Denies nocturia, Denies dysuria and Denies urinary urgency Musc Reports back pain (chronic) and Denies neck pain Skin/Breast Denies rash Neuro Denies dizziness and Denies headache(s) Endo Denies fatigue and Reports palpitations (on and off - feels that these are getting worse lately - see HPI) Physical exam (Primary Care) Vital Signs: Last Vital Signs Pulse 86 02/07/25 10:30 BP 116/80 02/07/25 10:30 Pulse Ox 98 02/07/25 10:30 Oxygen Delivery Method Room Air 02/07/25 10:30 BMI result Body Mass Index 23.9 Tobacco/Smoking Status: Tobacco use Status Tobacco use date assessed 02/07/25 02/07/25 10:31 Patient Tobacco Use Status Never used Tobacco 02/07/25 10:31 Tobacco use type Cigarette 02/07/25 10:31 e-Cigarette/Vaping Use Never Used 02/07/25 10:31 PHQ-9: PHQ-9 Score PHQ-9: Total score 0 02/07/25 11:32 Depression Screening Interpretation: Negative Thrive Assessment: Date of Thrive Assessment Date Thrive assessed 02/07/25 02/07/25 10:31 Currently or been in a relationship where the following occur: No concerns reported Const General: no acute distress and alert HENMT Ears: TM's normal bilaterally and EAC's normal Throat: Yes posterior oropharynx normal and Yes tonsils normal (no TP congestion) Neck Neck: Yes supple and No lymphadenopathy Thyroid: Thyroid normal Resp Auscultation: clear to auscultation bilaterally, no rales, no wheezes and diminished lung sounds (slightly) bilateral Cardio Rate: regular rate Rhythm: regular rhythm Heart sounds: no murmurs GI Palpation (GI): Soft to palpation and nontender Auscultation: normal bowel sounds General: Yes no CVA tenderness Back/Spine/Pelvis Back: no CVA tenderness Thoracic/Lumbar Spine: thoracic spinal tenderness and lumbar spinal tenderness Skin Rashes: no rashes Extrem General: Yes no clubbing, cyanosis or edema Results Reviewed Results Reviewed: Laboratory Tests 02/02/25 02/02/25 09:01 09:05 WBC 5.2 Hgb 13.4 Hct 39.2 Plt Count 361 D Sodium 143 Potassium 3.7 Creatinine 0.76 Estimated GFR > 60 Fasting Glucose 100 H AST 41 H ALT 47 H Triglycerides 103 Cholesterol 267 H LDL Cholesterol, Calc 196 H HDL Cholesterol 51 25-OH Vitamin D Total 44.3 TSH 1.14 Ur Specific [place] 1.015 Urine Protein Negative Urine Glucose (UA) Negative Urine Blood Negative Urine Nitrite Negative Ur Leukocyte Esterase Moderate (2+) H Coding Level of Care Code Est Pt Level 4 (40566) Complex EM visit Add On G2211 Diagnoses Intermittent palpitations R00.2 Pure hypercholesterolemia E78.00 Essential hypertension I10 Vitamin D deficiency E55.9 Other chronic back pain M54.89; G89.29 Back pain location: back pain in other location Chronicity: chronic Additional Codes PHQ-9 - 99688 - PHQ-9 Billing: Yes ([id number]) Assessment & Plan Assessment & Plan (1) Intermittent palpitations: Code(s): R00.2 - Palpitations Category: Medical Plan: Will send patient for a 12 lead EKG for further evaluation and to establish a baseline cardiac rhythm for her Have advised patient that her recent labs do not show anything that could be contributing to what she feels is her palpitations progressing Will send her for echocardiogram as well as a 7-day Holter monitor for further evaluation (2) Pure hypercholesterolemia: Code(s): E78.00 - Pure hypercholesterolemia, unspecified Category: Medical Plan: Results of her labs done a few days ago reviewed and discussed with patient Have advised her that her total and LDL cholesterol are significantly elevated and her LDL cholesterol is almost double the recommended level Discussed low cholesterol diet - low cholesterol diet info provided to patient in the office today Have advised her that if her cholesterol numbers do not improve significantly over the next few months, then we may need to consider starting her on cholesterol-lowering medications Will have her recheck her labs and fasting lipids in a couple of months for follow up, just before her next scheduled appointment (3) Essential hypertension: Code(s): I10 - Essential (primary) hypertension Category: Medical Plan: Reinforced low-sodium diet - goal is systolic BP of 120 mm or less Continue Hydrochlorothiazide 25 mg QD and Atenolol 25 mg QD (4) Vitamin D deficiency: Code(s): E55.9 - Vitamin D deficiency, unspecified Category: Medical Plan: Will start patient on Vitamin D3 2000 units QD (5) Back pain: Code(s): M54.9 - Dorsalgia, unspecified Category: Medical Qualifiers: Back pain location: back pain in other location Chronicity: chronic Qualified Code(s): M54.89 - Other dorsalgia; G89.29 - Other chronic pain Plan: Thoracic spine MRI done in 2012 revealed the presence of multilevel thoracic spine degenerative disc disease and lumbar spine MRI done in 2007 revealed primarily L4-L5 disc disease She has also reportedly been seen Dr. Velasquez for her back issues in the past and was reportedly advised that there are no surgical indications at the time and that she should just continue following up with her PCP for pain management We sent patient for updated thoracic and lumbar spine x-rays at her last visit and she had them done a few days ago, which came back showing only mild straightening of lumbar lordosis, with minimal levoscoliosis. Her thoracic and lumbar spine x-rays are otherwise grossly normal Reinforced activity and weight-lifting restrictions I will continue her again on her Oxycodone 5 mg Q 4 hours PRN for now (Rx refilled) but have advised patient that at some point soon I would like to lower down her dosing to no more than every 6-8 hours (maximum of 4 doses a day) rather than her current dose of 6 times a day and patient is agreeable to that Continue Cyclobenzaprine 10 mg TID PRN As previously discussed, will have her sign an updated pain management agreement today and reminded her that we will be implementing random pill count and urine drug screens again to be in compliance Plan Follow up as scheduled in March 2025 Orders: Orders CA echo transthoracic complete 02/07/25 R00.2 - Palpitations ECG 7 day holter monitor 02/07/25 R00.2 - Palpitations Comprehensive [place]. Panel Fast 03/30/25 E78.00 - Pure hypercholesterolemia, unspecified Lipid Panel 03/30/25 E78.00 - Pure hypercholesterolemia, unspecified ECG 12 lead EKG 02/07/25 R00.2 - Palpitations Medications: New cholecalciferol (vitamin D3) 50 mcg PO DAILY 90 days 90 caps 3RF E55.9 - Vitamin D deficiency, unspecified Refilled oxycodone Partial Fill upon patient request.chronic pain patient 5 mg PO Q4H PRN 168 tabs 0RF pain M51.9 - Unspecified thoracic, thoracolumbar and lumbosacral intervertebral disc disorder, M54.9 - Dorsalgia, unspecified lorazepam 1 mg PO TID 90 days PRN 90 tabs 0RF anxiety
--- OUTSIDE RECORDS SUMMARY | 2025-02-07 11:40 | XMS_ITS | Patient Health Record ---
Author Organization [facility] Address [address] [place] [id number] Care Team Providers Care Gyro Mechanic Name Role Phone Hua Duarte MD Primary Care Provider Eric Ortiz Unavailable [phone] Allergies Allergen (clinical drug ingredient) Drug/Non Drug [...] Problem Status W/U Status Risk Notes Problem 806071013 Encounter for screening for malignant neoplasm of colon (Z12.11) Active confirmed Problem Diverticular disease of colon (564219139) Diverticulosis of large intestine without perforation or abscess without bleeding (K57.30) Active confirmed Problem Gastroesophageal reflux disease (K21.9) Active confirmed Problem Gastritis (4690761) Gastritis (K29.70) Active c onfirmed Problem [id number] Abnormal gallbladder ultrasound (R93.2) Active confirmed Problem 174660886 RUQ abdominal pa in (R10.11) Active confirmed Problem 38752326 Other irritable bowel syndrome (K58.8) Active confirmed Plan Of Treatment Pending Test Test Name Order Date NUC HIDA SCAN 01/04/2023 US ABD 11/16/2022 Future Test Test Name Order Date COLONOSCOPY 11/16/2022 Insurance Providers Payer Name Payer Address Payer Phone Subscriber Number Group Number Insured Name Patient Relationship to Insured Coverage Start Date Coverage End Date [facility] [address] [place] [id number] [phone] [id number] ELHAM SHELTON Self - patient is the insured Medical (General) History Medical History History ICD Code Kidney stones--ESWL Hypertension Chronic back pain Denies [place],DM,CVA,Lung disease,renal dise ase Surgical History Surgery Date(Month/Year) Tonsillectomy Facial cosmetic surgery
== END 2025-02-07 11:51 | disposition home or self-care (01) ==
PROVIDERS: PCP Internal Medicine; Visit Provider Internal Medicine
DX: R00.2 Palpitations (principal); E78.00 Pure hypercholesterolemia, unspecified; I10 Essential (primary) hypertension; E55.9 Vitamin D deficiency, unspecified; M54.89 Other dorsalgia; G89.29 Other chronic pain

== ENCOUNTER → 2025-02-07 10:28 | Outpatient (BNVA) | payer BC, SELFPAY | PROVIDERS: PCP Internal Medicine; Visit Provider Internal Medicine | DX: R00.2 Palpitations (principal); E78.00 Pure hypercholesterolemia, unspecified; I10 Essential (primary) hypertension; E55.9 Vitamin D deficiency, unspecified; M54.89 Other dorsalgia; G89.29 Other chronic pain; M51.9 Unspecified thoracic, thoracolumbar and lumbosacral intervertebral disc disorder | CPT/HCPCS: 96127 ==

== ENCOUNTER 2025-04-03 08:43 | Outpatient (REF) | payer BC, SELFPAY ==
--- OUTSIDE RECORDS SUMMARY | 2025-04-03 08:57 | XMS_ITS | Clinical Summary ---
Author Organization [facility] [address] [place] [address] [place] [address] Phone Care Team Providers Care Card Services Specialist Name Role Phone Eamon Mcqueen MD Primary Care Provider Encounters Date Type Department Care Team Description 03/14/2025 1:32 PM EDT - 03/14/2025 11:59 PM EDT Hospital Encounter Radiology Department [address] [phone] Encounter for screening mammogram for malignant neoplasm of breast Discharge Disposition: Home or Self Care from Last 3 Months Surgical History Surgery Date Site/Laterality Comments TONSILLECTOMY ADENOIDECTOMY, BILATERAL MYRINGOTOMY AND TUBES PROCEDURE: IA TONSILLECTOMY & ADENOIDECTOMY <AGE 10 OTHER SURGICAL HISTORY PROCEDURE: [place] ERCP DESTRUCTION/LITHOTRIPSY CALCULI ANY METHOD; COMMENT: mult lithos for left kidney stone Medical History Medical History Date Comments Hypertension 08/14/2012 DX:Hypertension Family History Medical History Relation Name Comments Hypertension Father Arthritis Maternal Grandmother Lung cancer Mother Breast cancer Neg Hx Colon cancer Neg Hx Ovarian cancer Neg Hx Relation Name Status Comments Father Maternal Grandmother Mother Social History Tobacco Use Types Packs/Day Years Used Date Smoking Tobacco: Never Smokeless Tobacco: Never Alcohol Use Standard Drinks/Week Comments Yes 0 (1 standard drink = 0.6 oz pur e alcohol) Comments No Sex and Gender Information Value Date Recorded Sex Assigned at Not on file Legal Sex Female 10:15 PM EST Gender Identity Not on file Sexual Orientation Not on file Obstetrics History Para Term AB IAB SAB Ectopic Multiple Livin g Live Births 2 2 2 2 Date Outcome GA Total Labor Labor/2nd/3rd Weight Sex Type Anes PTL Jada A1 A5 Name Clin Term Term Plan of Treatment Health Maintenance Due Date Last Done Comments DTaP,Tdap,and Td Vaccines (1 - Tdap) 11/28/1987 Hepatitis B Vaccines (1 of 3 - 19+ 3-dose series) 11/28/1987 Pneumococcal Vaccine: 50+ Years (1 of 1 - PCV) 2018 Zoster Vaccines (1 of 2) 2018 Cervical Cancer Screening: P ap Smear 01/24/2022 01/24/2019 COVID-19 Vaccine (1 - 2023-2 5 season) 2024 Cholesterol Screening (Lipid Panel) 03/13/2025 Colorectal Cancer Screening: Colonoscopy 03/13/2025 Depression Screening 03/13/2025 HIV Screening 03/13/2025 Hepatitis C Screening 03/13/2025 Hypertension/CHF/CAD Annual BMP Blood Test 03/13/2025 Social Influencers of Health Screening 03/13/2025 Influenza Vaccine (#1) 2025 Breast Cancer Screening 03/14/2027 03/14/20 25, 01/25/2019 HIB Vaccines Aged Out No longer eligi ble based on patient's age to complete this topic HPV Vaccines Aged Out No longer eligi ble based on patient's age to complete this topic Hepatitis A Vaccines Aged Out No long er eligible based on patient's age to complete this topic IPV Vaccines Aged Out No longer eligi ble based on patient's age to complete this topic MMR Vaccines Aged Out No longer eligi ble based on patient's age to complete this topic Meningococcal ACWY Vaccine Aged Out N o longer eligible based on patient's age to complete this topic Meningococcal B Vaccine Aged Out No l onger eligible based on patient's age to complete this topic Pneumococcal Vaccine: Pediatrics (0 to 5 Years) and At-Risk Patients (6 to 49 Years) Aged Out No longer eligible b ased on patient's age to complete this topic RSV Immunization Patients Under 20 months Aged Out No longer eligible b ased on patient's age to complete this topic Varicella Vaccines Aged Out No longer eligible based on patient's age to complete this topic Procedures Procedure Name Priority Date/Time Associated Diagnosis Comments MG MAMMO DIGITAL SCREENING W YRN BILAT Routine 03/14/2025 1:45 PM EDT Encounter for screening mammogram for malignant neoplasm of breast PAP SMEAR Routine 01/24/2019 from Last 3 Months or Most Recently Relevant to Health Maintenance Results * MG Mammo Digital Screening w Yrn bilat (03/14/2025 1:45 PM EDT) Anatomical Region Laterality Modality Breast Bilateral Mammography 03/15/2025 9:00 AM EDT Impressions 03/15/2025 9:03 AM EDT BILATERAL BREASTS: Negative, no evidence of malignancy. Normal interval follow- up is recommended in 12 months. BREAST DENSITY: C - The breasts are heterogeneously dense which may obscure small masses. BI-RADS CATEGORY: 1 - NEGATIVE RECOMMENDATION: Screening bilateral mammogram is recommended in 1 year. Mammo Location: [facility], [address] [place] [address], [id number], . -------- FINAL REPORT -------- Dictated By: Cee Rees Dictated Date: 03/15/2025 09:00 ET Assigned Physician: Cee Rees Reviewed and Electronically Signed By: Cee Rees Signed Date: 03/15/2025 09:03 ET Workstation ID: [id number] Transcribed By: Self Edit Transcribed Date: 03/15/2025 09:00 ET Narrative 03/15/2025 9:03 AM EDT STUDY: Bilateral screening mammography with tomosynthesis and CAD TECHNIQUE: Bilateral full-field digital screening mammography is obtained and read in conjunction with computer-aided detection. Tomosynthesis as well as 2-D C view imaging were obtained. COMPARISON: Comparison made to multiple prior, most recent January 25, 2019, and most remote January 29, 2014. BILATERAL BREASTS: No significant masses, suspicious calcifications or other abnormalities are seen in either breast. Procedure Note Cee Rees MD - 03/15/2025 STUDY: Bilateral screening mammography with tomosynthesis and CAD TECHNIQUE: Bilateral full-field digital screening mammography is obtainedand read in conjunction with computer-aided detection. Tomosynthesis aswell as 2-D C view imaging were obtained. COMPARISON: Comparison made to multiple prior, most recent January 25, 2019,and most remote January 29, 2014. BILATERAL BREASTS: No significant masses, suspicious calcifications orother abnormalities are seen in either breast. IMPRESSION: BILATERAL BREASTS: Negative, no evidence of malignancy. Normal intervalfollow-up is recommended in 12 months. BREAST DENSITY: C - The breasts are heterogeneously dense which mayobscure small masses. BI-RADS CATEGORY: 1 - NEGATIVE RECOMMENDATION: Screening bilateral mammogram is recommended in 1 year. Mammo Location: [facility], [address] [place] [address], [id number], . -------- FINAL REPORT -------- Dictated By: Cee Rees Dictated Date: 03/15/2025 09:00 ET Assigned Physician: Cee Rees Reviewed and Electronically Signed By: Cee Rees Signed Date: 03/15/2025 09:03 ET Workstation ID: [id number] Transcribed By: Self Edit Transcribed Date: 03/15/2025 09:00 ET us Eamon Mcqueen MD IMG BI PROCEDURES Final Resu lt * Pap smear (01/24/2019) 01/24/2019 Narrative HISTORICAL TESTING LAB RESULTING AGENCY - 01/30/2019 5:25 PM EDT [id number] THINPREP PAP, IMAGED: NEGATIVE FOR SQUAMOUS INTRAEPITHELIAL LESION AND MALIGNANCY . ATROPHY. KATHYA SIERRA(ASCP) (CASE ELECTRONICALLY SIGNED 01 30 2019) RESULT OF APTIMA HIGH RISK HPV ASSAY: HIGH RISK HPV: NEGATIVE (SEROTYPES 16,18,31,33,35,39,45,51,52,56,58,59,66,68) COMPLETED ON 2019-01-25 ADEQUACY: SATISFACTORY ENDOCERVICAL/TRANSFORMATION ZONE COMPONENT PRESENT. SOURCE: THINPREP PAP HPV ANY DX: REFLEX 16 AND 18, CERVICAL, IMAGED CLINICAL INFORMATION: HPV ANY DIAGNOSIS. Z12.4, MENOPAUSE us Margie Aparicio MD LAB CYTOLOGY ORDERABLES Final Result HISTORICAL TESTING LAB RESULTING AGENCY from Last 3 Months or Most Recently Relevant to Health Maintenance Insurance [facility] Care Teams Card Services Specialist Relationship Specialty Start Date End Date Eamon Mcqueen MD [address] [place] [phone] PCP - General Internal Medicine 03/12/25
--- OUTSIDE RECORDS SUMMARY | 2025-04-03 08:57 | XMS_ITS | Patient Health Record ---
[facility] Address [address] [place] [place] [address] Care Team Providers Care Manager Strategic Marketing Name Role Phone Hua Duarte MD Primary Care Provider Aldair Lira Unavailable [phone] Allergies Allergen (clinical drug ingredient) Drug/Non Drug Allergy documented on EMR Reaction Allergy Type Onset Date Status sulfa Unknown Drug Allergy Active Reason For Referral No Information Medications Medication SIG (Take, Route, Fr equency, Duration) Notes Start Date End Date Status oxyCODONE HCl Active Lorazepam Active Fioricet 50-300-40 MG 1 capsule as neede d Orally every 4 hrs Active Problems Problem Type SNOMED Code ICD Code Onset Dates Problem Status W/U Status Risk Notes Problem Bursitis (34688570) Bursitis (727.3) Active confirmed Problem Neuralgia - Neuritis (729.2) Active confirmed Problem Myositis (59587425) Myositis (729.1) Active confirmed Problem Pain in limb (20739067) Pain in Limb (729.5) Active confirmed Problem Plantar fasciitis (213171783) Plantar Fasciitis (728.71) Active confirmed Plan Of Treatment Pending Test Test Name Order Date X ray : Foot, left 2V 07/24/2014 X ray : Foot, right 2V 07/24/2014 Insurance Providers Payer Name Payer Address Payer Phone Subscriber Number Group Number Insured Name Patient Relationship to Insured Coverage Start Date Coverage End Date [facility] [address] [place] [address] [id number] [place], [place] Self - patient is the insured Medical (General) History Medical History History ICD Code Anxiety Back,Hip,and Knee pain Headaches Chicken pox Surgical History Surgery Date(Month/Year) tonsillectomy and adenoidectomy 1985 kidney stones
--- OUTSIDE RECORDS SUMMARY | 2025-04-03 08:57 | XMS_ITS | Patient Health Record ---
Author Organization [facility] Address [address] [place] [address] Care Team Providers Care Engineer Fishing Vessel Name Role Phone Hua Duarte MD Primary Care Provider Eric Ortiz Unavailable [phone] Allergies Allergen (clinical drug ingredient) Drug/Non Drug [...] Problem Status W/U Status Risk Notes Problem 659872066 Encounter for screening for malignant neoplasm of colon (Z12.11) Active confirmed Problem Diverticular disease of colon (786978310) Diverticulosis of large intestine without perforation or abscess without bleeding (K57.30) Active confirmed Problem Gastroesophageal reflux disease (K21.9) Active confirmed Problem Gastritis (8136141) Gastritis (K29.70) Active c onfirmed Problem 95148288281434526 Abnormal gallbladder ultrasound (R93.2) Active confirmed Problem 522602802 RUQ abdominal pa in (R10.11) Active confirmed Problem 09917330 Other irritable bowel syndrome (K58.8) Active confirmed Plan Of Treatment Pending Test Test Name Order Date NUC HIDA SCAN 01/04/2023 US ABD 11/16/2022 Future Test Test Name Order Date COLONOSCOPY 11/16/2022 Insurance Providers Payer Name Payer Address Payer Phone Subscriber Number Group Number Insured Name Patient Relationship to Insured Coverage Start Date Coverage End Date [facility] [address] [place] [phone] [id number] ELHAM SHELTON Self - patient is the insured Medical (General) History Medical History History ICD Code Kidney stones--ESWL Hypertension Chronic back pain Denies [place],DM,CVA,Lung disease,renal dise ase Surgical History Surgery Date(Month/Year) Tonsillectomy Facial cosmetic surgery
[2025-04-03 10:35] LABS: Alanine Aminotransferase 23 U/L (0-31); Albumin Level 4.7 g/dL (3.5-5.0); Alkaline Phosphatase 49 U/L (39-117); Anion Gap 12 (12-20); Aspartate Amino Transferase 32 U/L (5-31); Blood Urea Nitrogen 19 mg/dL (9-16); Calcium 9.5 mg/dL (8.4-10.2); Carbon Dioxide 29 mmol/L (22-29); Chloride 105 mmol/L (96-108); Cholesterol 252 mg/dL (<200); Estimated Glomerular Filt Rate > 60; HDL Cholesterol 78 mg/dL (>40); Potassium 3.9 mmol/L (3.3-5.1); Sodium 142 mmol/L (135-145); Total Protein 7.2 g/dL (6.5-8.0); Triglycerides 89 mg/dL (<150)
== END 2025-04-03 08:44 | disposition home or self-care (01) ==
LOC: HO.LAB 08:43
PROVIDERS: PCP Internal Medicine; Visit Provider Internal Medicine
DX: E78.00 Pure hypercholesterolemia, unspecified (principal)
CPT/HCPCS: 36415; 80053; 80061

== ENCOUNTER → 2025-04-05 10:15 | Outpatient (REF) | payer BC, SELFPAY ==
--- NOTE | 2025-04-05 10:20 | ECG_ITS ---
Test Reason : PALPITATIONS Blood Pressure : */* mmHG Vent. Rate : 64 BPM Atrial Rate : 64 BPM P-R Int : 134 ms QRS Dur : 82 ms QT Int : 424 ms P-R-T Axes : -1 20 7 degrees QTcB Int : 437 ms Normal sinus rhythm Normal ECG No previous ECGs available Referred By: Eamon Mcqueen Electronically Signed By: Abdiel Doe
--- NOTE | 2025-04-05 10:20 | HM_ITS ---
Conclusion: 1. Patient was monitored for total period of 7 days 2. Baseline rhythm was normal sinus rhythm with average heart rate of 78 beats per minute 3. Rare PACs and PVCs noted without significant pauses 4. One 3 beat katerine of nonsustained VT at 113 beats per minute noted 5. Patient marked the counter 1 time without reporting symptoms correlating with sinus rhythm MTDD
--- NOTE | 2025-04-05 10:20 | CA_ITS ---
Transthoracic Echocardiogram Patient (Last, First, Middle): Goldie Martinez, Gender: Female Date of : 1970 Age: 54 Procedure Date: 04/05/2025 Procedure Type: Transthoracic Echocardiogram Location: OP Height: 160.02 cm Weight: 58.97 kg BSA: 1.61 m2 Heart Rate: bpm BP: 130 / 72 mmHg Post Office Clerk: TO Referring MD: Eamon Mcqueen MD Symptoms: R00.2 - Palpitations Study Quality: Fair Conclusions: - Normal left ventricular size, thickness, systolic function, and wall motion. The visually estimated ejection fraction is between 60-65%. - Normal right ventricular cavity size and systolic function. - Ascending aorta at upper limit of normal 3.2 cm Findings Left Ventricle Normal left ventricular size, thickness, systolic function, and wall motion. The visually estimated ejection fraction is between 60-65%. Abnormal diastolic function is noted. Spectral Doppler is indicative of a pseudonormal filling pattern. E/E prime ratio is between 8 and 15 consistent with indeterminate filling pressures. Right Ventricle Normal right ventricular cavity size and systolic function. Atria The left atrium is likely dilated. The right atrium is normal in size. Aortic Valve Normal aortic valve structure and function. There is no aortic valve stenosis. There is no aortic valve regurgitation. Mitral Valve The mitral valve appears normal. There is trace mitral valve regurgitation. There is no mitral valve stenosis. Pulmonic Valve The pulmonic valve is likely normal. Tricuspid Valve Normal tricuspid valve structure. There is no tricuspid valve regurgitation. Normal right atrial pressure. There is no evidence of pulmonary hypertension. Great Vessels The visualized portions of the pulmonary artery and branches are normal. Ascending aorta at upper limit of normal 3.2 cm Venous The inferior vena cava is normal in size and collapses greater than 50% with inspiration. Pericardium/Pleural There is no evidence of pericardial effusion. Prior Study Comparison No prior study available for comparison. Measurements 2D Linear Measurements IVSd: 0.88 0.6-0.9/0.6-1.0 cm LVIDd: 4.25 3.9-5.3/4.2-5.9 cm LVIDd Index: 2.64 2.4-3.2/2.2-3.1 cm/m2 LVIDs: 3.15 2.0-3.6 cm LVPWd: 0.76 0.7-1.1 cm LA Diam: 3.40 2.7-3.8/3.0-4.0 cm LAIDs Index: 2.11 1.5-2.3 cm/m2 LV Mass: 132.57 67-162/88-224 g LV Mass Index: 82.34 43-95/49-115 g/m2 LVOT Diam: 2.00 3.0+(-)1.3 cm 2D Systolic Function EF 4C: 63.50 >55% EF 2C: 63.30 >55% EF BiP: 62.70 >55% Mitral Valve MV Pk E: 0.79 MV PK A: 0.73 MV Decel Time: 192.00 E/A: 1.10 E'Lateral: 7.51 E'Medial: 5.55 E/E' Med: 14.20 E/E' Lat: 10.50 PHT: 56.00 MVA PHT: 3.93 Decel Steele: 4.12 Aortic Valve AoV Pk Michael: 1.38 AoV Mn Michael: 0.90 AoV VTI: 0.33 AoV Pk Grad: 8.00 Aov Mn Grad: 4.00 NICHOLAS Cont.VTI: 2.15 LVOT LVOT Pk Michael: 0.89 LVOT Mn Michael: 0.61 LVOT VTI: 0.22 LVOT Pk Grad: 3.00 LVOT Mn Grad: 2.00 LVOT Diam: 2.00 LVOT Area: 3.14 Diastolic Function MV Pk E: 0.79 MV Pk A: 0.73 E/A: 1.10 E'Medial: 5.55 E/E' Med: 14.20 E' Laterial: 7.51 E/E' Lat: 10.50 Right Ventricle TAPSE (mm): 18.30 TVS' Michael: 10.70 Tricuspid Valve TR Pk Michael: 1.79 TR Pk Grad: 13.00 RA Press: 3.00 RVSP: 16.00 Great Vessels Aorta Sinus of Valsalva: 2.66 2.0-3.5 cm Ao Asc: 3.20 2.1-3.4 cm Updated in Other Vendor System with Status of Final Abdiel Doe MD electronically signed on 04/08/2025 12:21:01 PM with status of Final
--- OUTSIDE RECORDS SUMMARY | 2025-04-05 10:43 | XMS_ITS | Patient Health Record ---
Author Organization [facility] Address [address] [place] [phone] Care Team Providers Care Export Administrator Name Role Phone Hua Duarte MD Primary Care Provider Eric Ortiz Unavailable [phone] Allergies Allergen (clinical drug ingredient) Drug/Non Drug [...] Problem Status W/U Status Risk Notes Problem 173152537 Encounter for screening for malignant neoplasm of colon (Z12.11) Active confirmed Problem Diverticular disease of colon (707684814) Diverticulosis of large intestine without perforation or abscess without bleeding (K57.30) Active confirmed Problem Gastroesophageal reflux disease (K21.9) Active confirmed Problem Gastritis (2301169) Gastritis (K29.70) Active c onfirmed Problem 50469202595133484 Abnormal gallbladder ultrasound (R93.2) Active confirmed Problem 456207723 RUQ abdominal pa in (R10.11) Active confirmed Problem 13790050 Other irritable bowel syndrome (K58.8) Active confirmed Plan Of Treatment Pending Test Test Name Order Date NUC HIDA SCAN 01/04/2023 US ABD 11/16/2022 Future Test Test Name Order Date COLONOSCOPY 11/16/2022 Insurance Providers Payer Name Payer Address Payer Phone Subscriber Number Group Number Insured Name Patient Relationship to Insured Coverage Start Date Coverage End Date [facility] [address] [place] [phone] [id number] ELHAM SHELTON Self - patient is the insured Medical (General) History Medical History History ICD Code Kidney stones--ESWL Hypertension Chronic back pain Denies [place],DM,CVA,Lung disease,renal dise ase Surgical History Surgery Date(Month/Year) Tonsillectomy Facial cosmetic surgery
--- OUTSIDE RECORDS SUMMARY | 2025-04-05 10:43 | XMS_ITS | Clinical Summary ---
Author Organization [facility] [address] [place] [address] [place] [address] Phone Care Team Providers Care Control Center Operator Name Role Phone Eamon Mcqueen MD Primary Care Provider [phone] Encounters Date Type Department Care Team Description 03/14/2025 1:32 PM EDT - 03/14/2025 11:59 PM EDT Hospital Encounter Radiology Department [address] [phone] Encounter for screening mammogram for malignant neoplasm of breast Discharge Disposition: Home or Self Care from Last 3 Months Surgical History Surgery Date Site/Laterality Comments TONSILLECTOMY ADENOIDECTOMY, BILATERAL MYRINGOTOMY AND TUBES PROCEDURE: CO TONSILLECTOMY & ADENOIDECTOMY <AGE 10 OTHER SURGICAL HISTORY PROCEDURE: CO ERCP DESTRUCTION/LITHOTRIPSY CALCULI ANY METHOD; COMMENT: mult [...] is recommended in 1 year. Mammo Location: [facility], [address] [place] [address], [address], . -------- FINAL REPORT -------- Dictated By: Cee Rees Dictated Date: 03/15/2025 09:00 ET Assigned Physician: Cee Rees Reviewed and Electronically Signed By: Cee Rees Signed Date: 03/15/2025 09:03 ET Workstation ID: [id number] Transcribed By: Self Edit Transcribed Date: 03/15/2025 [...] is recommended in 1 year. Mammo Location: [facility], [address] [place] [address], [id number], . -------- FINAL REPORT -------- Dictated By: Cee Rees Dictated Date: 03/15/2025 09:00 ET Assigned Physician: Cee Rees Reviewed and Electronically Signed By: Cee Rees Signed Date: 03/15/2025 09:03 ET Workstation ID: [id number] Transcribed By: Self Edit Transcribed Date: 03/15/2025 09:00 ET us Eamon Mcqueen MD IMG BI PROCEDURES Final Resu lt * Pap smear (01/24/2019) 01/24/2019 Narrative HISTORICAL TESTING LAB RESULTING AGENCY - 01/30/2019 5:25 PM EDT [id number] THINPREP PAP, IMAGED: NEGATIVE FOR SQUAMOUS INTRAEPITHELIAL [...] Most Recently Relevant to Health Maintenance Insurance [facility] Care Teams Control Center Operator Relationship Specialty Start Date End Date Eamon Mcqueen MD [address] [place] [phone] PCP - General Internal Medicine 03/12/25
--- OUTSIDE RECORDS SUMMARY | 2025-04-05 10:44 | XMS_ITS | Patient Health Record ---
[facility] Address [address] [place] [address] Care Team Providers Care Dean Of Admissions Name Role Phone Hua Duarte MD Primary Care Provider Aldair Lira Unavailable [phone] Allergies Allergen (clinical drug ingredient) Drug/Non Drug [...] Status W/U Status Risk Notes Problem Bursitis (95254126) Bursitis (727.3) Active confirmed Problem Neuralgia - Neuritis (729.2) Active confirmed Problem Myositis (67507390) Myositis (729.1) Active confirmed Problem Pain in limb (99910293) Pain in Limb (729.5) Active confirmed Problem Plantar fasciitis (475635093) Plantar Fasciitis (728.71) Active confirmed Plan Of Treatment Pending Test Test Name Order Date X ray : Foot, left 2V 07/24/2014 X ray : Foot, right 2V 07/24/2014 Insurance Providers Payer Name Payer Address Payer Phone Subscriber Number Group Number Insured Name Patient Relationship to Insured Coverage Start Date Coverage End Date [facility] [address] [place] [address] [id number] [place], Goldie Self - patient is the insured Medical (General) History Medical History History ICD Code Anxiety Back,Hip,and Knee pain Headaches Chicken pox Surgical History Surgery Date(Month/Year) tonsillectomy and adenoidectomy 1985 kidney stones
[2025-04-05 11:29] LABS: Appearance Urine Clear; Glucose Urine UA Negative (Negative); PH 5.5 (5.0-9.0); Specific Gravity - Urine >= 1.030 (1.005-1.025); UMIC TRIGGER UACC YES
[2025-04-05 11:36] LABS: UACC Culture Trigger YES
== END ==
LOC: HO.CARD 10:15
PROVIDERS: PCP Internal Medicine; Visit Provider Internal Medicine
DX: R00.2 Palpitations (principal); R30.0 Dysuria
CPT/HCPCS: 81001; 87086; 93005; 93242; 93306

== ENCOUNTER → 2025-04-05 10:20 | Outpatient (BNV) | payer BC, SELFPAY | PROVIDERS: PCP Internal Medicine; Visit Provider Internal Medicine Cardiovascular Disease | DX: R00.2 Palpitations (principal); I77.810 Thoracic aortic ectasia | CPT/HCPCS: 93306 ==

== ENCOUNTER 2025-04-09 10:21 | Outpatient (AMB) | payer BC, SELFPAY ==
[2025-04-09 10:23] VITALS: BP 120/70; PULSE 67; O2SAT 96; BMI 23.9
--- NOTE | 2025-04-09 10:23 | A.OFFPC_ITS ---
Vital Signs 04/09/25 10:23 Height 5 ft 4 in Weight 139 lb 8 oz BMI 23.9 BP 120/70 Blood Pressure Location Lt brachial Position Sitting Pulse 67 Pulse Source Pulse Oximeter Pulse Oximetry (%) 96 Oxygen Delivery Method Room Air Intake Visit Reasons: Med Review Green Hide Inspector Required: No Accompanied by: Self / Same As Patient Allergies Sulfa (Sulfonamide Antibiotics) Allergy (Unknown, Verified 04/09/25 11:29) Unknown Medication List - Last Reconciled 04/09/25 by Eamon Mcqueen MD atenolol 25 mg PO DAILY rsprhjcdst-bjmtxnsphpxwq-lulx 50-325-40 mg 2 tabs PO Q4-6H PRN cholecalciferol (vitamin D3) 50 mcg PO DAILY 90 days cyclobenzaprine 10 mg PO TID 30 days dicyclomine 20 mg PO QID hydrochlorothiazide 25 mg PO DAILY lorazepam 1 mg PO TID PRN 90 days oxycodone 5 mg PO Q4H PRN Tobacco use date assessed: 04/09/25 Dental Screening Dental Screen Date: 04/09/25 Did you have a dental visit in the last 12 months?: No Did you have a dental problem in the last 6 months where you did not have access to dental care?: No Was dental information given to patient?: Patient has dentist HPI Med Review HPI Details Patient comes in today for her follow up visit She reportedly still has on and off (heart) palpitations (ongoing for the past 30 yrs) but states that they do not seem to be occurring as often over the past month or so She felt that her palpitations have been getting worse over the past few weeks and requested at her last appointment to have this checked out further She had her echocardiogram done a few days ago and currently still has a 7-day Holter monitor in place (will be completed this Tuesday) She denies any headaches or dizziness Denies any chest pains or increased SOB No nausea/vomiting, no abdominal pain No change in bowel habits noted States that her low back pain and joint pains remain adequately controlled on her current Rx Needs her Lorazepam and pain medication Rx refilled today She had her follow up labs done a few days ago, especially to recheck her cholesterol levels - to discuss her results She is also requesting for a referral to dermatology for a skin check - states that she has several dark spots and possible freckles on her skin that she would like to have evaluated for potential skin malignancy PFS Medical History (Updated 04/09/25 @ 11:45 by Eamon Mcqueen MD) Anxiety Vitamin D deficiency Pure hypercholesterolemia Essential hypertension S/P extracorporeal shock wave therapy Kidney stones Back pain Surgical History H/O cosmetic plastic surgery Hx of tonsillectomy History of tonsillectomy and adenoidectomy Family History Mother No problems noted. Father No problems noted. Social History Housing: House Alcohol intake: current Alcohol intake frequency: a few times a week Patient Tobacco Use Status: Never used Tobacco Tobacco use type: Cigarette e-Cigarette/Vaping Use: Never Used Second Hand Smoke Exposure: No service: No Current occupational status: disabled Cognitive needs: No Hearing needs: No Vision needs: Yes (reading glasses) Questionnaire PHQ-9 Over the last 2 weeks, how often have you been bothered by any of the following problems? 1. Little interest or pleasure in doing things: not at all 2. Feeling down, depressed, or hopeless: not at all 3. Trouble falling or staying asleep, or sleeping too much: not at all 4. Feeling tired or having little energy: not at all 5. Poor appetite or overeating: not at all 6. Feeling bad about yourself - or that you are a failure or have let yourself or your family down: not at all 7. Trouble concentrating on things, such as reading the newspaper or watching television: not at all 8. Moving or speaking so slowly that other people could have noticed. Or the opposite - being so fidgety or restless that you have been moving around a lot more than usual: not at all 9. Thoughts that you would be better off or of hurting yourself in some way: not at all Total score: 0 Depression Screening Interpretation: Negative Depression Screening Done: Yes 99007 - PHQ-9 Billing: Yes Source: Developed by Drs. Eric Muñoz, Cecelia Mckinney, Sukumar Maradiaga and colleagues, with an educational favian from [employer]. Thrive Questionnaire Date Thrive assessed: 04/09/25 I am a: Patient What is your living situation today?: I have a steady place to live Within the past 12 months, did the food you bought not last and you didn't have the money to get more?: Never true Within the past 12 months, did you worry whether your food would run out before you got money to buy more?: Never true Do you have trouble paying for medicines?: No Do you have trouble getting transportation to medical appointments?: No Do you have trouble paying your heating and electricity bill?: No Do you have trouble taking care of your child, family member or friend?: No Do you have trouble with day-to-day activities such as bathing, preparing meals, shopping, managing finances, etc.?: No Are you currently unemployed and looking for a job?: No Are you interested in more education?: No Please select the resources that you would like help with: None Currently or been in a relationship where the following occur: No concerns reported THRIVE Score: 0 AUDIT C Alcohol Use Questionnaire (AUDIT-C) 1. How often do you have a drink containing alcohol?: 2-4 times a month 2. How many drinks containing alcohol do you have on a typical day when you are drinking?: 1 or 2 3. How often do you have six or more drinks on one occasion?: Never Total Score: 2 Score Reviewed/Action Taken: Yes YULY-7 AMB Questionnaire YULY-7 Date YULY - 7 assessed: 04/09/25 Feeling nervous, anxious, or on edge: 0 = Not at all Not being able to stop or control worryin = Not at all Worrying too much about different things: 0 = Not at all Trouble relaxin = Not at all Being so restless that it is hard to sit still: 0 = Not at all Becoming easily annoyed or irritable: 0 = Not at all Feeling afraid as if something awful might happen: 0 = Not at all Total YULY-7 score (0-4 normal; 5-9 mild; 10-14 moderate; 15-21 severe): 0 Source: Developed by Drs. Eric Muñoz, Sukumar Moreno and colleagues, with an educational favian from [employer]. Review of Systems Const Denies chills, Denies fatigue, Denies fever(s) and Denies headache(s) ENT Denies dysphagia, Denies dizziness, Denies otalgia, Denies headache(s), Denies neck pain, Denies odynophagia and Denies sore throat Card Denies chest pain, Reports palpitations (on and off - feels that these are getting worse lately - see HPI) and Denies dyspnea Resp Denies chest congestion, Denies cough and Denies dyspnea GI Denies abdominal pain, Denies constipation, Denies dysphagia, Denies heartburn, Denies diarrhea, Denies nausea, Denies odynophagia and Denies vomiting Denies difficulty voiding, Denies nocturia, Denies dysuria and Denies urinary urgency Musc Reports back pain (chronic) and Denies neck pain Skin/Breast Details: (+) few scattered dark spots / hyperpigmented skin lesions Denies rash Neuro Denies dizziness and Denies headache(s) Psych Reports anxiety Endo Denies fatigue and Reports palpitations (on and off - feels that these are getting worse lately - see HPI) Physical exam (Primary Care) Vital Signs: Last Vital Signs Pulse 67 04/09/25 10:23 BP 120/70 04/09/25 10:23 Pulse Ox 96 04/09/25 10:23 Oxygen Delivery Method Room Air 04/09/25 10:23 BMI result Body Mass Index 23.9 Tobacco/Smoking Status: Tobacco use Status Tobacco use date assessed 04/09/25 04/09/25 10:29 Patient Tobacco Use Status Never used Tobacco 04/09/25 10:29 Tobacco use type Cigarette 04/09/25 10:29 e-Cigarette/Vaping Use Never Used 04/09/25 10:29 PHQ-9: PHQ-9 Score PHQ-9: Total score 0 04/09/25 10:29 Depression Screening Interpretation: Negative Thrive Assessment: Date of Thrive Assessment Date Thrive assessed 04/09/25 04/09/25 10:29 Currently or been in a relationship where the following occur: No concerns reported Const General: no acute distress and alert HENMT Throat: Yes posterior oropharynx normal and Yes tonsils normal (no TP congesti on) Neck Neck: Yes supple and No lymphadenopathy Thyroid: Thyroid normal Resp Auscultation: clear to auscultation bilaterally, no rales, no wheezes and diminished lung sounds (slightly) bilateral Cardio Rate: regular rate Rhythm: regular rhythm Heart sounds: no murmurs GI Palpation (GI): Soft to palpation and nontender Auscultation: normal bowel sounds General: Yes no CVA tenderness Back/Spine/Pelvis Back: no CVA tenderness Thoracic/Lumbar Spine: thoracic spinal tenderness and lumbar spinal tenderness Skin Rashes: no rashes Extrem General: Yes no clubbing, cyanosis or edema Results Reviewed Results Reviewed: Laboratory Tests 04/03/25 04/05/25 08:50 08:30 Sodium 142 Potassium 3.9 Creatinine 0.69 Estimated GFR > 60 Fasting Glucose 93 Calcium 9.5 AST 32 H ALT 23 Triglycerides 89 Cholesterol 252 H LDL Cholesterol, Calc 157 H HDL Cholesterol 78 Ur Specific [place] >= 1.030 H Urine Protein Trace Urine Glucose (UA) Negative Urine Blood Negative Urine Nitrite Negative Ur Leukocyte Esterase Small (1+) H Coding Level of Care Code Est Pt Level 4 (12923) Diagnoses Intermittent palpitations R00.2 Pure hypercholesterolemia E78.00 Essential hypertension I10 Nonintractable episodic headache, unspecified headache type R51.9 Headache type: unspecified Headache chronicity pattern: episodic headache Intractability: not intractable Vitamin D deficiency E55.9 Other chronic back pain M54.89; G89.29 Back pain location: back pain in other location Chronicity: chronic Hyperpigmented skin lesion L81.9 Anxiety F41.9 Additional Codes PHQ-9 - 45340 - PHQ-9 Billing: Yes ([id number]) Assessment & Plan Assessment & Plan (1) Intermittent palpitations: Code(s): R00.2 - Palpitations Category: Medical Plan: 12 lead EKG done a few days ago came out normal - NSR with no acute ST-T wave changes Echocardiogram done a few days ago also came back completely normal Patient currently has a 7-day Holter monitor in place - this will be completed at the end of the week (2) Pure hypercholesterolemia: Code(s): E78.00 - Pure hypercholesterolemia, unspecified Category: Medical Plan: Results of her labs done a few days ago reviewed and discussed with patient Have advised her that her total and LDL cholesterol are still elevated but have improved slightly from previous - her LDL cholesterol level has dropped from 196 mg/dl a couple of months ago to 157 mg/dl now Reinforced low cholesterol diet Have advised patient that if she can continue to get her cholesterol numbers improved significantly over the next few months, then we may not need to start her on any cholesterol-lowering medications Will have her recheck her labs and fasting lipids in a few for follow up - will order her repeat labs when it is time (3) Essential hypertension: Code(s): I10 - Essential (primary) hypertension Category: Medical Plan: Reinforced low-sodium diet - goal is systolic BP of 120 mm or less Continue Hydrochlorothiazide 25 mg QD and Atenolol 25 mg QD (4) Headache: Code(s): R51.9 - Headache, unspecified Category: Medical Qualifiers: Headache type: unspecified Headache chronicity pattern: episodic headache Intractability: not intractable Qualified Code(s): R51.9 - Headache, unspecified Plan: Continue Fiorinal 50-325-40 mg 2 tablets Q 4 to 6 hours PRN but discussed with patient that I would like to try to wean her off this medication as much as possible If her headaches persist, will consider referring her to neurology for further evaluation and management (5) Vitamin D deficiency: Code(s): E55.9 - Vitamin D deficiency, unspecified Category: Medical Plan: Continue Vitamin D3 2000 units QD (6) Back pain: Code(s): M54.9 - Dorsalgia, unspecified Category: Medical Qualifiers: Back pain location: back pain in other location Chronicity: chronic Qualified Code(s): M54.89 - Other dorsalgia; G89.29 - Other chronic pain Plan: Thoracic spine MRI done in 2012 revealed the presence of multilevel thoracic spine degenerative disc disease and lumbar spine MRI done in 2007 revealed primarily L4-L5 disc disease She has also reportedly been seen Dr. Velasquez for her back issues in the past and was reportedly advised that there are no surgical indications at the time and that she should just continue following up with her PCP for pain management We sent patient for updated thoracic and lumbar spine x-rays at her last visit and she had them done a few days ago, which came back showing only mild straightening of lumbar lordosis, with minimal levoscoliosis. Her thoracic and lumbar spine x-rays are otherwise grossly normal Reinforced activity and weight-lifting restrictions I will continue her again on her Oxycodone 5 mg Q 4 hours PRN for now (Rx refill ed) but have advised patient that at some point soon I would like to lower down her dosing to no more than every 6-8 hours (maximum of 4 doses a day) rather than her current dose of 6 times a day and patient is agreeable to that Continue Cyclobenzaprine 10 mg TID PRN (7) Hyperpigmented skin lesion: Code(s): L81.9 - Disorder of pigmentation, unspecified Category: Medical Plan: Per request, will refer her to dermatology for further evaluation/skin check (8) Anxiety: Code(s): F41.9 - Anxiety disorder, unspecified Category: Medical Plan: Continue Lorazepam 1 mg TID PRN - Rx refilled Plan Follow up in 1 month Orders: Referrals Dermatology Referral Z12.83 - Encounter for screening for malignant neoplasm of skin Medications: Refilled oxycodone Partial Fill upon patient request.chronic pain patient 5 mg PO Q4H PRN 168 tabs 0RF pain M51.9 - Unspecified thoracic, thoracolumbar and lumbosacral intervertebral disc disorder, M54.9 - Dorsalgia, unspecified lorazepam 1 mg PO TID PRN 90 tabs 0RF anxiety 90 days
--- OUTSIDE RECORDS SUMMARY | 2025-04-09 11:33 | XMS_ITS | Patient Health Record ---
[facility] Address [address] [facility] [place] [address] Care Team Providers Care Core Filer Name Role Phone Hua Duarte MD Primary Care Provider Aldair Lira Unavailable [phone] Allergies Allergen (clinical drug ingredient) Drug/Non Drug [...] Status W/U Status Risk Notes Problem Bursitis (14420738) Bursitis (727.3) Active confirmed Problem Neuralgia - Neuritis (729.2) Active confirmed Problem Myositis (70273458) Myositis (729.1) Active confirmed Problem Pain in limb (53997462) Pain in Limb (729.5) Active confirmed Problem Plantar fasciitis (352483942) Plantar Fasciitis (728.71) Active confirmed Plan Of Treatment Pending Test Test Name Order Date X ray : Foot, left 2V 07/24/2014 X ray : Foot, right 2V 07/24/2014 Insurance Providers Payer Name Payer Address Payer Phone Subscriber Number Group Number Insured Name Patient Relationship to Insured Coverage Start Date Coverage End Date [facility] [address] [place] [address] [id number] Cowdrey, Goldie Self - patient is the insured Medical (General) History Medical History History ICD Code Anxiety Back,Hip,and Knee pain Headaches Chicken pox Surgical History Surgery Date(Month/Year) tonsillectomy and adenoidectomy 1985 kidney stones
--- OUTSIDE RECORDS SUMMARY | 2025-04-09 11:33 | XMS_ITS | Patient Health Record ---
Author Organization [facility] Address [address] [place] [id number] Care Team Providers Care Online Retailer Name Role Phone Hua Duarte MD Primary Care Provider Eric Ortiz Unavailable [phone] Allergies Allergen (clinical drug ingredient) Drug/Non Drug [...] Problem Status W/U Status Risk Notes Problem 572334575 Encounter for screening for malignant neoplasm of colon (Z12.11) Active confirmed Problem Diverticular disease of colon (600870652) Diverticulosis of large intestine without perforation or abscess without bleeding (K57.30) Active confirmed Problem Gastroesophageal reflux disease (K21.9) Active confirmed Problem Gastritis (9495180) Gastritis (K29.70) Active c onfirmed Problem [id number] Abnormal gallbladder ultrasound (R93.2) Active confirmed Problem 857198837 RUQ abdominal pa in (R10.11) Active confirmed Problem 22496954 Other irritable bowel syndrome (K58.8) Active confirmed Plan Of Treatment Pending Test Test Name Order Date NUC HIDA SCAN 01/04/2023 US ABD 11/16/2022 Future Test Test Name Order Date COLONOSCOPY 11/16/2022 Insurance Providers Payer Name Payer Address Payer Phone Subscriber Number Group Number Insured Name Patient Relationship to Insured Coverage Start Date Coverage End Date [facility] [address] [place] [phone] [id number] ELHAM SHELTON Self - patient is the insured Medical (General) History Medical History History ICD Code Kidney stones--ESWL Hypertension Chronic back pain Denies HI,DM,CVA,Lung disease,renal dise ase Surgical History Surgery Date(Month/Year) Tonsillectomy Facial cosmetic surgery
--- OUTSIDE RECORDS SUMMARY | 2025-04-09 11:33 | XMS_ITS | Clinical Summary ---
Author Organization [facility] [address] [place] [address] [place] [address] Phone Care Team Providers Care Chemist Helper Name Role Phone Eamon Mcqueen MD Primary Care Provider Encounters Date Type Department Care Team Description 03/14/2025 1:32 PM EDT - 03/14/2025 11:59 PM EDT Hospital Encounter Radiology Department [address] [phone] Encounter for screening mammogram for malignant neoplasm of breast Discharge Disposition: Home or Self Care from Last 3 Months Surgical History Surgery Date Site/Laterality Comments TONSILLECTOMY ADENOIDECTOMY, BILATERAL MYRINGOTOMY AND TUBES PROCEDURE: [place] TONSILLECTOMY & ADENOIDECTOMY <AGE 10 OTHER SURGICAL HISTORY PROCEDURE: [place] ERCP DESTRUCTION/LITHOTRIPSY CALCULI ANY METHOD; COMMENT: mult [...] is recommended in 1 year. Mammo Location: [facility], [address] [place] [address], [id number], . -------- FINAL REPORT -------- Dictated By: Cee Rees Dictated Date: 03/15/2025 09:00 ET Assigned Physician: Cee Rees Reviewed and Electronically Signed By: Cee Rees Signed Date: 03/15/2025 09:03 ET Workstation ID: [id number] Transcribed By: Self Edit Transcribed Date: 03/15/2025 [...] is recommended in 1 year. Mammo Location: [facility], [address] [place] [address], [address], . -------- FINAL REPORT -------- Dictated By: Cee Rees Dictated Date: 03/15/2025 09:00 ET Assigned Physician: Cee Rees Reviewed and Electronically Signed By: Cee Rees Signed Date: 03/15/2025 09:03 ET Workstation ID: [id number] Transcribed By: Self Edit Transcribed Date: 03/15/2025 09:00 ET us Eamon Mcqueen MD IMG BI PROCEDURES Final Resu lt * Pap smear (01/24/2019) 01/24/2019 Narrative HISTORICAL TESTING LAB RESULTING AGENCY - 01/30/2019 5:25 PM EDT [id number] THINPREP PAP, IMAGED: NEGATIVE FOR SQUAMOUS INTRAEPITHELIAL LESION AND MALIGNANCY . ATROPHY. KATHYA SIERRA(ASCP) (CASE ELECTRONICALLY SIGNED 01 30 2019) RESULT OF APTIMA HIGH RISK HPV ASSAY: HIGH RISK HPV: NEGATIVE (SEROTYPES 16,18,31,33,35,39,45,51,52,56,58,59,66,68) COMPLETED ON 2019-01-25 ADEQUACY: SATISFACTORY ENDOCERVICAL/TRANSFORMATION ZONE COMPONENT PRESENT. SOURCE: THINPREP PAP HPV ANY DX: REFLEX 16 AND 18, CERVICAL, IMAGED CLINICAL INFORMATION: HPV ANY DIAGNOSIS. Z12.4, MENOPAUSE Margie Aparicio MD LAB CYTOLOGY ORDERABLES Final Result HISTORICAL TESTING LAB RESULTING AGENCY from Last 3 Months or Most Recently Relevant to Health Maintenance [place] [place] [address] Care Teams Chemist Helper Relationship Specialty Start Date End Date Eamon Mcqueen MD [address] [place] [address] PCP - General Internal Medicine 03/12/25
== END 2025-04-09 10:50 | disposition home or self-care (01) ==
LOC: HO.HMCH 10:22
PROVIDERS: PCP Internal Medicine; Visit Provider Internal Medicine
DX: R00.2 Palpitations (principal); E78.00 Pure hypercholesterolemia, unspecified; I10 Essential (primary) hypertension; R51.9 Headache, unspecified; E55.9 Vitamin D deficiency, unspecified; M54.89 Other dorsalgia; G89.29 Other chronic pain; L81.9 Disorder of pigmentation, unspecified; F41.9 Anxiety disorder, unspecified

== ENCOUNTER → 2025-04-09 10:21 | Outpatient (BNVA) | payer BC, SELFPAY | PROVIDERS: PCP Internal Medicine; Visit Provider Internal Medicine | DX: I10 Essential (primary) hypertension (principal); R00.2 Palpitations; E78.00 Pure hypercholesterolemia, unspecified; R51.9 Headache, unspecified; E55.9 Vitamin D deficiency, unspecified; M54.89 Other dorsalgia; G89.29 Other chronic pain; L81.9 Disorder of pigmentation, unspecified; F41.9 Anxiety disorder, unspecified | CPT/HCPCS: 96127 ==

== ENCOUNTER 2025-05-07 10:52 | Outpatient (AMB) | payer BC, SELFPAY ==
[2025-05-07 10:55] VITALS: BP 140/80; PULSE 53; O2SAT 98; BMI 24.0
--- NOTE | 2025-05-07 10:55 | A.OFFPC_ITS ---
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: No Accompanied by: Self / Same As Patient Allergies Sulfa (Sulfonamide Antibiotics) Allergy (Unknown, Verified 05/07/25 11:37) Unknown Medication List - Last Reconciled 05/07/25 by Eamon Mcqueen MD atenolol 25 mg PO DAILY [id number] 50-325-40 mg 2 tabs PO Q4-6H PRN cholecalciferol (vitamin D3) 50 mcg PO DAILY 90 days cyclobenzaprine 10 mg PO TID 30 days dicyclomine 20 mg PO QID hydrochlorothiazide 25 mg PO DAILY lorazepam 1 mg PO TID PRN 90 days oxycodone 5 mg PO Q4H PRN Tobacco use date assessed: 05/07/25 Dental Screening Dental Screen Date: 05/07/25 Did you have a dental visit in the last 12 months?: No Did you have a dental problem in the last 6 months where you did not have access to dental care?: No Was dental information given to patient?: Patient has dentist HPI 1m follow up HPI Details Patient comes in today for her follow up visit States that she still has occasional / on and off (heart) palpitations that have been ongoing for the past 30 yrs She had her EKG, echocardiogram and 7-day Holter monitor done last month in all of her tests have come back normal She denies any headaches or dizziness Denies any chest pains or increased SOB No nausea/vomiting, no abdominal pain No change in bowel habits noted States that her low back pain and joint pains remain adequately controlled on her current Rx Will need her pain medication and Vitamin D Rx refilled today PFSH Medical History Anxiety Vitamin D deficiency Pure hypercholesterolemia Essential hypertension S/P extracorporeal shock wave therapy Kidney stones Back pain Surgical History H/O cosmetic plastic surgery Hx of tonsillectomy History of tonsillectomy and adenoidectomy Family History Mother No problems noted. Father No problems noted. Social History Housing: House Alcohol intake: current Alcohol intake frequency: a few times a week Patient Tobacco Use Status: Never used Tobacco Tobacco use type: Cigarette e-Cigarette/Vaping Use: Never Used Second Hand Smoke Exposure: No service: No Current occupational status: disabled Cognitive needs: No Hearing needs: No Vision needs: Yes (reading glasses) Questionnaire PHQ-9 Over the last 2 weeks, how often have you been bothered by any of the following problems? 1. Little interest or pleasure in doing things: not at all 2. Feeling down, depressed, or hopeless: not at all 3. Trouble falling or staying asleep, or sleeping too much: not at all 4. Feeling tired or having little energy: not at all 5. Poor appetite or overeating: not at all 6. Feeling bad about yourself - or that you are a failure or have let yourself or your family down: not at all 7. Trouble concentrating on things, such as reading the newspaper or watching television: not at all 8. Moving or speaking so slowly that other people could have noticed. Or the opposite - being so fidgety or restless that you have been moving around a lot more than usual: not at all 9. Thoughts that you would be better off or of hurting yourself in some way: not at all Total score: 0 Depression Screening Interpretation: Negative Depression Screening Done: Yes 39744 - PHQ-9 Billing: Yes Source: Developed by Drs. Eric Muñoz, Cecelia Mckinney, Sukumar Maradiaga and colleagues, with an educational favian from [employer]. Thrive Questionnaire Date Thrive assessed: 05/07/25 I am a: Patient What is your living situation today?: I have a steady place to live Within the past 12 months, did the food you bought not last and you didn't have the money to get more?: Never true Within the past 12 months, did you worry whether your food would run out before you got money to buy more?: Never true Do you have trouble paying for medicines?: No Do you have trouble getting transportation to medical appointments?: No Do you have trouble paying your heating and electricity bill?: No Do you have trouble taking care of your child, family member or friend?: No Do you have trouble with day-to-day activities such as bathing, preparing meals, shopping, managing finances, etc.?: No Are you currently unemployed and looking for a job?: No Are you interested in more education?: No Please select the resources that you would like help with: None Currently or been in a relationship where the following occur: No concerns reported THRIVE Score: 0 AUDIT C Alcohol Use Questionnaire (AUDIT-C) 1. How often do you have a drink containing alcohol?: 2-4 times a month 2. How many drinks containing alcohol do you have on a typical day when you are drinking?: 1 or 2 3. How often do you have six or more drinks on one occasion?: Never Total Score: 2 Score Reviewed/Action Taken: Yes YULY-7 AMB Questionnaire YULY-7 Date YULY - 7 assessed: 05/07/25 Feeling nervous, anxious, or on edge: 0 = Not at all Not being able to stop or control worryin = Not at all Worrying too much about different things: 0 = Not at all Trouble relaxin = Not at all Being so restless that it is hard to sit still: 0 = Not at all Becoming easily annoyed or irritable: 0 = Not at all Feeling afraid as if something awful might happen: 0 = Not at all Total YULY-7 score (0-4 normal; 5-9 mild; 10-14 moderate; 15-21 severe): 0 Source: Developed by Drs. Eric Muñoz, Cecelia Mckinney, Sukumar Maradiaga and colleagues, with an educational favian from [employer]. Review of Systems Const Denies chills, Denies fatigue, Denies fever(s) and Denies headache(s) ENT Denies dysphagia, Denies dizziness, Denies otalgia, Denies headache(s), Denies neck pain, Denies odynophagia and Denies sore throat Card Denies chest pain, Reports palpitations (on and off ) and Denies dyspnea Resp Denies chest congestion, Denies cough and Denies dyspnea GI Denies abdominal pain, Denies constipation, Denies dysphagia, Denies heartburn, Denies diarrhea, Denies nausea, Denies odynophagia and Denies vomiting Denies difficulty voiding, Denies nocturia, Denies dysuria and Denies urinary urgency Musc Reports back pain (chronic) and Denies neck pain Skin/Breast Denies rash Neuro Denies dizziness and Denies headache(s) Psych Reports anxiety Endo Denies fatigue and Reports palpitations (on and off ) Physical exam (Primary Care) Vital Signs: Last Vital Signs Pulse 53 05/07/25 10:55 BP 120/70 05/07/25 11:40 Pulse Ox 98 05/07/25 10:55 Oxygen Delivery Method Room Air 05/07/25 10:55 BMI result Body Mass Index 24.0 Tobacco/Smoking Status: Tobacco use Status Tobacco use date assessed 05/07/25 05/07/25 10:57 Patient Tobacco Use Status Never used Tobacco 05/07/25 10:57 Tobacco use type Cigarette 05/07/25 10:57 e-Cigarette/Vaping Use Never Used 05/07/25 10:57 PHQ-9: PHQ-9 Score PHQ-9: Total score 0 05/07/25 11:40 Depression Screening Interpretation: Negative Thrive Assessment: Date of Thrive Assessment Date Thrive assessed 05/07/25 05/07/25 10:57 Currently or been in a relationship where the following occur: No concerns reported Const General: no acute distress and alert HENMT Throat: Yes posterior oropharynx normal and Yes tonsils normal (no TP congestion) Neck Neck: Yes supple and No lymphadenopathy Thyroid: Thyroid normal Resp Auscultation: clear to auscultation bilaterally, no rales, no wheezes and diminished lung sounds (slightly) bilateral Cardio Rate: regular rate Rhythm: regular rhythm Heart sounds: no murmurs GI Palpation (GI): Soft to palpation and nontender Auscultation: normal bowel sounds General: Yes no CVA tenderness Back/Spine/Pelvis Back: no CVA tenderness Thoracic/Lumbar Spine: thoracic spinal tenderness and lumbar spinal tenderness Skin Rashes: no rashes Extrem General: Yes no clubbing, cyanosis or edema Coding Level of Care Code Est Pt Level 4 (73278) Diagnoses Intermittent palpitations R00.2 Pure hypercholesterolemia E78.00 Essential hypertension I10 Nonintractable episodic headache, unspecified headache type R51.9 Headache type: unspecified Headache chronicity pattern: episodic headache Intractability: not intractable Vitamin D deficiency E55.9 Other chronic back pain M54.89; G89.29 Back pain location: back pain in other location Chronicity: chronic Anxiety F41.9 Additional Codes PHQ-9 - 97326 - PHQ-9 Billing: Yes ([id number]) Assessment & Plan Assessment & Plan (1) Intermittent palpitations: Code(s): R00.2 - Palpitations Category: Medical Plan: 12 lead EKG, echocardiogram and 7-day Holter monitor done over the past couple of months have all come back normal She is advised that if these continue to recur frequently, can start her on low- dose Metoprolol to help control her symptoms Patient states that she would like to hold off on taking additional medications at this time but will call for Rx if her symptoms progress (2) Pure hypercholesterolemia: Code(s): E78.00 - Pure hypercholesterolemia, unspecified Category: Medical Plan: Reinforced low cholesterol diet Have advised patient that if she can continue to get her cholesterol numbers to improve significantly over the next few months, then we may not need to start her on any cholesterol-lowering medications (3) Essential hypertension: Code(s): I10 - Essential (primary) hypertension Category: Medical Plan: Reinforced low-sodium diet - goal is systolic BP of 120 mm or less Continue Hydrochlorothiazide 25 mg QD and Atenolol 25 mg QD (4) Headache: Code(s): R51.9 - Headache, unspecified Category: Medical Qualifiers: Headache type: unspecified Headache chronicity pattern: episodic headache Intractability: not intractable Qualified Code(s): R51.9 - Headache, unspecified Plan: Continue Fiorinal 50-325-40 mg 2 tablets Q 4 to 6 hours PRN but discussed with patient that I would like to try to wean her off this medication as much as possible If her headaches persist, will consider referring her to neurology for further evaluation and management (5) Vitamin D deficiency: Code(s): E55.9 - Vitamin D deficiency, unspecified Category: Medical Plan: Continue Vitamin D3 2000 units QD - Rx refilled (6) Back pain: Comment: chronic Code(s): M54.9 - Dorsalgia, unspecified Category: Medical Qualifiers: Back pain location: back pain in other location Chronicity: chronic Qualified Code(s): M54.89 - Other dorsalgia; G89.29 - Other chronic pain Plan: Thoracic spine MRI done in 2012 revealed the presence of multilevel thoracic spine degenerative disc disease and lumbar spine MRI done in 2007 revealed primarily L4-L5 disc disease She has also reportedly been seen Dr. Velasquez for her back issues in the past and was reportedly advised that there are no surgical indications at the time and that she should just continue following up with her PCP for pain management We sent patient for updated thoracic and lumbar spine x-rays at her last visit and she had them done a few days ago, which came back showing only mild st raightening of lumbar lordosis, with minimal levoscoliosis. Her thoracic and lumbar spine x-rays are otherwise grossly normal Reinforced activity and weight-lifting restrictions I will continue her again on her Oxycodone 5 mg Q 4 hours PRN for now (Rx refilled) but have advised patient that at some point soon I would like to lower down her dosing to no more than every 6-8 hours (maximum of 4 doses a day) rather than her current dose of 6 times a day and patient is agreeable to that Continue Cyclobenzaprine 10 mg TID PRN (7) Anxiety: Code(s): F41.9 - Anxiety disorder, unspecified Category: Medical Plan: Continue Lorazepam 1 mg TID PRN Plan Follow-up in 1 month Medications: Refilled oxycodone Partial Fill upon patient request.chronic pain patient 5 mg PO Q4H PRN 168 tabs 0RF pain M51.9 - Unspecified thoracic, thoracolumbar and lumbosacral intervertebral disc disorder, M54.9 - Dorsalgia, unspecified cholecalciferol (vitamin D3) 50 mcg PO DAILY 90 caps 3RF 90 days E55.9 - Vitamin D deficiency, unspecified
[2025-05-07 11:40] VITALS: BP 120/70
--- OUTSIDE RECORDS SUMMARY | 2025-05-07 12:01 | XMS_ITS | Clinical Summary ---
Author Organization [address] Address [address] [place] [address] Phone Care Team Providers Care Fourdrinier Wire Weaver Name Role Phone Eamon Mcqueen MD Primary Care Provider Encounters Date Type Department Care Team Description 03/14/2025 1:32 PM EDT - 03/14/2025 11:59 PM EDT Hospital Encounter Radiology Department [address] [phone] Encounter for screening mammogram for malignant neoplasm of breast Discharge Disposition: Home or Self Care from Last 3 Months Surgical History Surgery Date Site/Laterality Comments TONSILLECTOMY ADENOIDECTOMY, BILATERAL MYRINGOTOMY AND TUBES PROCEDURE: [place] TONSILLECTOMY & ADENOIDECTOMY <AGE 10 OTHER SURGICAL HISTORY PROCEDURE: [place] ERCP DESTRUCTION/LITHOTRIPSY CALCULI ANY METHOD; COMMENT: mult [...] Vaccine (1 - 2023-2 5 season) 2024 Depression Screening 09/26/2024 Cholesterol Screening (Lipid Panel) 03/13/2025 Colorectal Cancer Screening: Colonoscopy 03/13/2025 HIV Screening 03/13/2025 Hepatitis C Screening 03/13/2025 Hypertension/CHF/CAD Annual BMP Blood Test 03/13/2025 Social Influencers of Health Screening 03/13/2025 Influenza Vaccine (#1) 2025 08/26/2022 Breast Cancer Screening 03/14/2027 03/14/20 25, 01/25/2019 [...] is recommended in 1 year. Mammo Location: [facility], [address] [place] [address], [id number], . -------- FINAL REPORT -------- Dictated By: Cee Rees Dictated Date: 03/15/2025 09:00 ET Assigned Physician: Cee Rees Reviewed and Electronically Signed By: Cee Rees Signed Date: 03/15/2025 09:03 ET Workstation ID: [id number] Transcribed By: Self Edit Transcribed Date: 03/15/2025 [...] is recommended in 1 year. Mammo Location: [facility], [address] [place] [address], [id number], . -------- FINAL REPORT -------- Dictated By: Cee Rees Dictated Date: 03/15/2025 09:00 ET Assigned Physician: Cee Rees Reviewed and Electronically Signed By: Cee Rees Signed Date: 03/15/2025 09:03 ET Workstation ID: [id number] Transcribed By: Self Edit Transcribed Date: 03/15/2025 09:00 ET us Eamon Mcqueen MD IMG BI PROCEDURES Final Resu lt * Pap smear (01/24/2019) 01/24/2019 Narrative HISTORICAL TESTING LAB RESULTING AGENCY - 01/30/2019 5:25 PM EDT [id number] THINPREP PAP, IMAGED: NEGATIVE FOR SQUAMOUS INTRAEPITHELIAL [...] Most Recently Relevant to Health Maintenance Insurance [facility] Care Teams Fourdrinier Wire Weaver Relationship Specialty Start Date End Date Eamon Mcqueen MD PCP - General Internal Medicine 03/12/25
--- OUTSIDE RECORDS SUMMARY | 2025-05-07 12:01 | XMS_ITS | Patient Health Record ---
Author Organization [facility] Address [address] [place] [address] Care Team Providers Care Marine Firer Name Role Phone Hua Duarte MD Primary Care Provider Eric Ortiz Unavailable [phone] Allergies Allergen (clinical drug ingredient) Drug/Non Drug [...] Problem Status W/U Status Risk Notes Problem 303732032 Encounter for screening for malignant neoplasm of colon (Z12.11) Active confirmed Problem Diverticular disease of colon (395662639) Diverticulosis of large intestine without perforation or abscess without bleeding (K57.30) Active confirmed Problem Gastroesophageal reflux disease (807770912) Gastroesophageal reflux disease (K21.9) Active confirmed Problem Gastritis (2004107) Gastritis (K29.70) Active c onfirmed Problem [id number] Abnormal gallbladder ultrasound (R93.2) Active confirmed Problem 293958486 RUQ abdominal pa in (R10.11) Active confirmed Problem 95885914 Other irritable bowel syndrome (K58.8) Active confirmed Plan Of Treatment Pending Test Test Name Order Date NUC HIDA SCAN 01/04/2023 US ABD 11/16/2022 Future Test Test Name Order Date COLONOSCOPY 11/16/2022 Insurance Providers Payer Name Payer Address Payer Phone Subscriber Number Group Number Insured Name Patient Relationship to Insured Coverage Start Date Coverage End Date [facility] [address] [facility] [phone] [id number] ELHAM SHELTON Self - patient is the insured Medical (General) History Medical History History ICD Code Kidney stones--ESWL Hypertension Chronic back pain Denies CO,DM,CVA,Lung disease,renal dise ase Surgical History Surgery Date(Month/Year) Tonsillectomy Facial cosmetic surgery
--- OUTSIDE RECORDS SUMMARY | 2025-05-07 12:01 | XMS_ITS | Patient Health Record ---
Author Organization [facility] Address [address] [place] [address] Care Team Providers Care Technical Rep Name Role Phone Hua Duarte MD Primary Care Provider Unavaila Aldair Johnson Unavailable [phone] Allergies Allergen (clinical drug ingredient) Drug/Non Drug [...] Problem Status W/U Status Risk Notes Problem Information temporarily unavailable Bursitis (727.3) Active confirmed Problem Information temporarily unavailable Neuralgia - Neuritis (729.2) Active confirmed Problem Information temporarily unavailable Myositis (729.1) Active confirmed Problem Information temporarily unavailable Pain in Limb (729.5) Active confirmed Problem Information temporarily unavailable Plantar Fasciitis (728.71) Active confirmed Plan Of Treatment Pending Test Test Name Order Date X ray : Foot, left 2V 07/24/2014 X ray : Foot, right 2V 07/24/2014 Insurance Providers Payer Name Payer Address Payer Phone Subscriber Number Group Number Insured Name Patient Relationship to Insured Coverage Start Date Coverage End Date [facility] [address] [place] [address] [id number] Goldie Martinez Self - patient is the insured Medical (General) History Medical History History ICD Code Anxiety Back,Hip,and Knee pain Headaches Chicken pox Surgical History Surgery Date(Month/Year) tonsillectomy and adenoidectomy 1985 kidney stones
== END 2025-05-07 11:46 | disposition home or self-care (01) ==
LOC: HO.HMCH 10:53
PROVIDERS: PCP Internal Medicine; Visit Provider Internal Medicine
DX: R00.2 Palpitations (principal); E78.00 Pure hypercholesterolemia, unspecified; I10 Essential (primary) hypertension; R51.9 Headache, unspecified; E55.9 Vitamin D deficiency, unspecified; M54.89 Other dorsalgia; G89.29 Other chronic pain; F41.9 Anxiety disorder, unspecified

== ENCOUNTER → 2025-05-07 10:52 | Outpatient (BNVA) | payer BC, SELFPAY | PROVIDERS: PCP Internal Medicine; Visit Provider Internal Medicine | DX: R00.2 Palpitations (principal); E78.00 Pure hypercholesterolemia, unspecified; I10 Essential (primary) hypertension; R51.9 Headache, unspecified; E55.9 Vitamin D deficiency, unspecified; M54.89 Other dorsalgia; G89.29 Other chronic pain; F41.9 Anxiety disorder, unspecified | CPT/HCPCS: 96127 ==

== ENCOUNTER 2025-06-11 12:14 | Outpatient (AMB) | payer BC, SELFPAY ==
[2025-06-11 12:31] VITALS: BP 110/80; PULSE 66; O2SAT 97; BMI 23.9
--- NOTE | 2025-06-11 12:31 | A.OFFPC_ITS ---
Vital Signs 06/11/25 12:31 Height 5 ft 4 in Weight 139 lb 2 oz BMI 23.9 BP 110/80 Blood Pressure Location Lt brachial Position Sitting Pulse 66 Pulse Source Pulse Oximeter Pulse Oximetry (%) 97 Oxygen Delivery Method Room Air Intake Visit Reasons: 1 month follow up Kit Planner Required: No Accompanied by: Self / Same As Patient Allergies Sulfa (Sulfonamide Antibiotics) Allergy (Unknown, Verified 06/11/25 12:55) Unknown Medication List - Last Reconciled 06/11/25 by Eamon Mcqueen MD atenolol 25 mg PO DAILY apribjxqqs-zigbzuoaomcxe-arlj 50-325-40 mg 2 tabs PO Q4-6H PRN cholecalciferol (vitamin D3) 50 mcg PO DAILY 90 days cyclobenzaprine 10 mg PO TID 30 days dicyclomine 20 mg PO QID hydrochlorothiazide 25 mg PO DAILY lorazepam 1 mg PO TID PRN 90 days oxycodone 5 mg PO Q4H PRN Tobacco use date assessed: 06/11/25 Dental Screening Dental Screen Date: 06/11/25 Did you have a dental visit in the last 12 months?: No Did you have a dental problem in the last 6 months where you did not have access to dental care?: No Was dental information given to patient?: Patient has dentist HPI 1 month follow up HPI Details Patient comes in today for her follow up visit States that she feels okay She still has the occasional / on and off palpitations that have been going on for the past 30 yrs and states that they are mostly unchanged from before She had EKG, echocardiogram and 7-day Holter monitor all done a couple of months ago and all of these tests came back normal She denies any headaches or dizziness Denies any exertional chest pains or increased SOB No nausea/vomiting, no abdominal pain No change in bowel habits noted States that her low back pain and joint pains remain adequately controlled on her current Rx Will need her pain medication and Lorazepam Rx refilled today PFSH Medical History Anxiety Vitamin D deficiency Pure hypercholesterolemia Essential hypertension S/P extracorporeal shock wave therapy Kidney stones Back pain Surgical History H/O cosmetic plastic surgery Hx of tonsillectomy History of tonsillectomy and adenoidectomy Family History Mother No problems noted. Father No problems noted. Social History Housing: House Alcohol intake: current Alcohol intake frequency: a few times a week Patient Tobacco Use Status: Never used Tobacco Tobacco use type: Cigarette e-Cigarette/Vaping Use: Never Used Second Hand Smoke Exposure: No service: No Current occupational status: disabled Cognitive needs: No Hearing needs: No Vision needs: Yes (reading glasses) Questionnaire PHQ-9 Over the last 2 weeks, how often have you been bothered by any of the following problems? Depression Screening Interpretation: Negative Depression Screening Done: Yes Source: Developed by Drs. Eric Muñoz, Cecelia Mckinney, Sukumar Maradiaga and colleagues, with an educational favian from [employer]. Thrive Questionnaire Date Thrive assessed: 05/07/25 I am a: Patient What is your living situation today?: I have a steady place to live Within the past 12 months, did the food you bought not last and you didn't have the money to get more?: Never true Within the past 12 months, did you worry whether your food would run out before you got money to buy more?: Never true Do you have trouble paying for medicines?: No Do you have trouble getting transportation to medical appointments?: No Do you have trouble paying your heating and electricity bill?: No Do you have trouble taking care of your child, family member or friend?: No Do you have trouble with day-to-day activities such as bathing, preparing meals, shopping, managing finances, etc.?: No Are you currently unemployed and looking for a job?: No Are you interested in more education?: No Please select the resources that you would like help with: None Currently or been in a relationship where the following occur: No concerns reported THRIVE Score: 0 AUDIT C Alcohol Use Questionnaire (AUDIT-C) 1. How often do you have a drink containing alcohol?: 2-4 times a month 2. How many drinks containing alcohol do you have on a typical day when you are drinking?: 1 or 2 3. How often do you have six or more drinks on one occasion?: Never Total Score: 2 Score Reviewed/Action Taken: Yes YULY-7 AMB Questionnaire YULY-7 Date YULY - 7 assessed: 05/07/25 Source: Developed by Drs. Eric Muñoz, Cecelia Mckinney, Sukumar Maradiaga and colleagues, with an educational favian from [employer]. Review of Systems Const Denies chills, Denies fatigue, Denies fever(s) and Denies headache(s) ENT Denies dysphagia, Denies dizziness, Denies otalgia, Denies headache(s), Denies neck pain, Denies odynophagia and Denies sore throat Card Denies chest pain, Reports palpitations (on and off ) and Denies dyspnea Resp Denies chest congestion, Denies cough and Denies dyspnea GI Denies abdominal pain, Denies constipation, Denies dysphagia, Denies heartburn, Denies diarrhea, Denies nausea, Denies odynophagia and Denies vomiting Denies difficulty voiding, Denies nocturia, Denies dysuria and Denies urinary urgency Musc Reports back pain (chronic) and Denies neck pain Skin/Breast Denies rash Neuro Denies dizziness and Denies headache(s) Psych Reports anxiety Endo Denies fatigue and Reports palpitations (on and off ) Physical exam (Primary Care) Vital Signs: Last Vital Signs Pulse 66 06/11/25 12:31 BP 110/80 06/11/25 12:31 Pulse Ox 97 06/11/25 12:31 Oxygen Delivery Method Room Air 06/11/25 12:31 BMI result Body Mass Index 23.9 Tobacco/Smoking Status: Tobacco use Status Tobacco use date assessed 06/11/25 06/11/25 12:39 Patient Tobacco Use Status Never used Tobacco 06/11/25 12:39 Tobacco use type Cigarette 06/11/25 12:39 e-Cigarette/Vaping Use Never Used 06/11/25 12:39 Depression Screening Interpretation: Negative Thrive Assessment: Date of Thrive Assessment Date Thrive assessed 05/07/25 06/11/25 12:39 Currently or been in a relationship where the following occur: No concerns reported Const General: no acute distress and alert HENMT Throat: Yes posterior oropharynx normal and Yes tonsils normal (no TP congestion) Neck Neck: Yes supple and No lymphadenopathy Thyroid: Thyroid normal Resp Auscultation: clear to auscultation bilaterally, no rales, no wheezes and diminished lung sounds (slightly) bilateral Cardio Rate: regular rate Rhythm: regular rhythm Heart sounds: no murmurs GI Palpation (GI): Soft to palpation and nontender Auscultation: normal bowel sounds General: Yes no CVA tenderness Back/Spine/Pelvis Back: no CVA tenderness Thoracic/Lumbar Spine: thoracic spinal tenderness and lumbar spinal tenderness Skin Rashes: no rashes Extrem General: Yes no clubbing, cyanosis or edema Coding Level of Care Code Est Pt Level 4 (97036) Diagnoses Intermittent palpitations R00.2 Pure hypercholesterolemia E78.00 Essential hypertension I10 Nonintractable episodic headache, unspecified headache type R51.9 Headache type: unspecified Headache chronicity pattern: episodic headache Intractability: not intractable Vitamin D deficiency E55.9 Other chronic back pain M54.89; G89.29 Back pain location: back pain in other location Chronicity: chronic Anxiety F41.9 Assessment & Plan Assessment & Plan (1) Intermittent palpitations: Code(s): R00.2 - Palpitations Category: Medical Plan: 12-lead EKG, echocardiogram and 7-day Holter monitor done over the past couple of months have all come back normal She is advised that if these continue to recur frequently, we can increase the dose of her current low-dose Atenolol to help control her symptoms Patient states that she would like to hold off on making any changes to her meds at this time but will call if her symptoms progress (2) Pure hypercholesterolemia: Code(s): E78.00 - Pure hypercholesterolemia, unspecified Category: Medical Plan: Reinforced low cholesterol diet Her cholesterol numbers have improved slightly when they were last checked in March 2025 and we will have her recheck her labs again at her appointment in July 2025 Have advised patient that if she can continue to get her cholesterol numbers to improve significantly over the next few months, then we may not need to start her on any cholesterol-lowering medications (3) Essential hypertension: Code(s): I10 - Essential (primary) hypertension Category: Medical Plan: Reinforced low-sodium diet - goal is systolic BP of 120 mm or less Continue Hydrochlorothiazide 25 mg QD and Atenolol 25 mg QD (4) Headache: Code(s): R51.9 - Headache, unspecified Category: Medical Qualifiers: Headache type: unspecified Headache chronicity pattern: episodic headache Intractability: not intractable Qualified Code(s): R51.9 - Headache, unspecified Plan: Continue Fiorinal 50-325-40 mg 2 tablets Q 4 to 6 hours PRN but discussed with patient that I would like to try to wean her off this medication as much as possible If her headaches persist, will consider referring her to neurology for further evaluation and management (5) Vitamin D deficiency: Code(s): E55.9 - Vitamin D deficiency, unspecified Category: Medical Plan: Continue Vitamin D3 2000 units QD (6) Back pain: Comment: chronic Code(s): M54.9 - Dorsalgia, unspecified Category: Medical Qualifiers: Back pain location: back pain in other location Chronicity: chronic Qualified Code(s): M54.89 - Other dorsalgia; G89.29 - Other chronic pain Plan: Thoracic spine MRI done in 2012 revealed the presence of multilevel thoracic spine degenerative disc disease and lumbar spine MRI done in 2007 revealed primarily L4-L5 disc disease She has also reportedly been seen Dr. Velasquez for her back issues in the past and was reportedly advised that there are no surgical indications at the time and that she should just continue following up with her PCP for pain management We sent patient for updated thoracic and lumbar spine x-rays at her last visit and she had them done a few days ago, which came back showing only mild straightening of lumbar lordosis, with minimal levoscoliosis. Her thoracic and lumbar spine x-rays are otherwise grossly normal Reinforced activity and weight-lifting restrictions I will continue her again on her Oxycodone 5 mg Q 4 hours PRN for now (Rx refilled) but have advised patient that at some point soon I would like to lower down her dosing to no more than every 6-8 hours (maximum of 4 doses a day) rather than her current dose of 6 times a day and patient is agreeable to that Continue Cyclobenzaprine 10 mg TID PRN (7) Anxiety: Code(s): F41.9 - Anxiety disorder, unspecified Category: Medical Plan: Continue Lorazepam 1 mg TID PRN - Rx refilled Plan Follow up in 1 month Medications: Refilled oxycodone Partial Fill upon patient request.chronic pain patient 5 mg PO Q4H PRN 168 tabs 0RF pain M51.9 - Unspecified thoracic, thoracolumbar and lumbosacral intervertebral disc disorder, M54.9 - Dorsalgia, unspecified lorazepam 1 mg PO TID PRN 90 tabs 0RF anxiety 90 days
--- OUTSIDE RECORDS SUMMARY | 2025-06-11 16:19 | XMS_ITS | Clinical Summary ---
Author Organization [address] Address [address] [place] [address] Phone Care Team Providers Care Inside Outside Sales Representative Name Role Phone Eamon Mcqueen MD Primary Care Provider Encounters Date Type Department Care Team Description 03/14/2025 1:32 PM EDT - 03/14/2025 11:59 PM EDT Hospital Encounter Radiology Department [address] [phone] Encounter for screening mammogram for malignant neoplasm of breast Discharge Disposition: Home or Self Care from Last 3 Months Surgical History Surgery Date Site/Laterality Comments TONSILLECTOMY ADENOIDECTOMY, BILATERAL MYRINGOTOMY AND TUBES PROCEDURE: MA TONSILLECTOMY & ADENOIDECTOMY <AGE 10 OTHER SURGICAL HISTORY PROCEDURE: MA ERCP DESTRUCTION/LITHOTRIPSY CALCULI ANY METHOD; COMMENT: mult [...] Cancer Screening: P ap Smear 01/24/2022 01/24/2019 Depression Screening 09/26/2024 Cholesterol Screening (Lipid Panel) 03/13/2025 Colorectal Cancer Screening: Colonoscopy 03/13/2025 HIV Screening 03/13/2025 Hepatitis C Screening 03/13/2025 Hypertension/CHF/CAD Annual BMP Blood Test 03/13/2025 Social Influencers of Health Screening 03/13/2025 COVID-19 Vaccine (1 - 2023-2 5 season) 2025 Influenza Vaccine (#1) 2025 08/26/2022 Breast Cancer [...] is recommended in 1 year. Mammo Location: [facility], [address] [place] [address], [id number], . -------- FINAL REPORT -------- Dictated By: Cee Rees Dictated Date: 03/15/2025 09:00 ET Assigned Physician: Cee Rees Reviewed and Electronically Signed By: Cee Rees Signed Date: 03/15/2025 09:03 ET Workstation ID: [id number] Transcribed By: Self Edit Transcribed Date: 03/15/2025 [...] is recommended in 1 year. Mammo Location: [facility], [address] [place] [address], [id number], . -------- FINAL REPORT -------- Dictated By: Cee Rees Dictated Date: 03/15/2025 09:00 ET Assigned Physician: Cee Rees Reviewed and Electronically Signed By: Cee Rees Signed Date: 03/15/2025 09:03 ET Workstation ID: [id number] Transcribed By: Self Edit Transcribed Date: 03/15/2025 09:00 ET us Eamon Mcqueen MD IMG BI PROCEDURES Final Resu lt * Pap smear (01/24/2019) 01/24/2019 Narrative HISTORICAL TESTING LAB RESULTING AGENCY - 01/30/2019 5:25 PM EDT [id number] THINPREP PAP, IMAGED: NEGATIVE FOR SQUAMOUS INTRAEPITHELIAL [...] Most Recently Relevant to Health Maintenance Insurance [facility] Care Teams Inside Outside Sales Representative Relationship Specialty Start Date End Date Eamon Mcqueen MD PCP - General Internal Medicine 03/12/25
--- OUTSIDE RECORDS SUMMARY | 2025-06-11 16:19 | XMS_ITS | Patient Health Record ---
Author Organization [facility] Address [address] [place] [id number] Care Team Providers Care Welt Insole Channeler Name Role Phone Hua Duarte MD Primary Care Provider Eric Ortiz Unavailable [phone] Allergies Allergen (clinical drug ingredient) Drug/Non Drug [...] Problem Status W/U Status Risk Notes Problem [id number] Encounter for screening for malignant neoplasm of colon (Z12.11) Active confirmed Problem Diverticular disease of colon (559913233) Diverticulosis of large intestine without perforation or abscess without bleeding (K57.30) Active confirmed Problem Gastroesophageal reflux disease (869106475) Gastroesophageal reflux disease (K21.9) Active confirmed Problem Gastritis (5411443) Gastritis (K29.70) Active c onfirmed Problem [id number] Abnormal gallbladder ultrasound (R93.2) Active confirmed Problem 356322299 RUQ abdominal pa in (R10.11) Active confirmed Problem 14302188 Other irritable bowel syndrome (K58.8) Active confirmed Plan Of Treatment Pending Test Test Name Order Date NUC HIDA SCAN 01/04/2023 US ABD 11/16/2022 Future Test Test Name Order Date COLONOSCOPY 11/16/2022 Insurance Providers Payer Name Payer Address Payer Phone Subscriber Number Group Number Insured Name Patient Relationship to Insured Coverage Start Date Coverage End Date [facility] [address] [facility] [phone] [id number] ELHAM SHELTON Self - patient is the insured Medical (General) History Medical History History ICD Code Kidney stones--ESWL Hypertension Chronic back pain Denies UT,DM,CVA,Lung disease,renal dise ase Surgical History Surgery Date(Month/Year) Tonsillectomy Facial cosmetic surgery
--- OUTSIDE RECORDS SUMMARY | 2025-06-11 16:19 | XMS_ITS | Patient Health Record ---
Author Organization [facility] Address [address] [facility] [place] [address] Care Team Providers Care Forming Machine Upkeep Mechanic Helper Name Role Phone Hua Duarte MD Primary Care Provider Aldair Lira Unavailable [phone] Allergies Allergen (clinical drug ingredient) Drug/Non Drug [...] Status W/U Status Risk Notes Problem Bursitis (93910960) Bursitis (727.3) Active confirmed Problem Neuralgia - Neuritis (729.2) Active confirmed Problem Myositis (67093265) Myositis (729.1) Active confirmed Problem Pain in limb (84796913) Pain in Limb (729.5) Active confirmed Problem Plantar fasciitis (657734267) Plantar Fasciitis (728.71) Active confirmed Plan Of Treatment Pending Test Test Name Order Date X ray : Foot, left 2V 07/24/2014 X ray : Foot, right 2V 07/24/2014 Insurance Providers Payer Name Payer Address Payer Phone Subscriber Number Group Number Insured Name Patient Relationship to Insured Coverage Start Date Coverage End Date [facility] [address] [place] [address] [phone] [id number] Sharon, Goldie Self - patient is the insured Medical (General) History Medical History History ICD Code Anxiety Back,Hip,and Knee pain Headaches Chicken pox Surgical History Surgery Date(Month/Year) tonsillectomy and adenoidectomy 1985 kidney stones
== END 2025-06-11 17:34 | disposition home or self-care (01) ==
LOC: HO.HMCH 12:14
PROVIDERS: PCP Internal Medicine; Visit Provider Internal Medicine
DX: R00.2 Palpitations (principal); E78.00 Pure hypercholesterolemia, unspecified; I10 Essential (primary) hypertension; R51.9 Headache, unspecified; E55.9 Vitamin D deficiency, unspecified; M54.89 Other dorsalgia; G89.29 Other chronic pain; F41.9 Anxiety disorder, unspecified

== ENCOUNTER 2025-07-10 12:41 | Outpatient (AMB) | payer BC, SELFPAY ==
[2025-07-10 12:55] VITALS: BP 110/80; PULSE 68; O2SAT 98; BMI 24.1
--- NOTE | 2025-07-10 12:55 | MHC.PC.OV ---
Vital Signs 07/10/25 12:55 Height 5 ft 4 in Weight 140 lb 4 oz BMI 24.1 BP 110/80 Blood Pressure Location Lt brachial Position Sitting Pulse 68 Pulse Source Pulse Oximeter Pulse Oximetry (%) 98 Oxygen Delivery Method Room Air Intake Visit Reasons: 1 month follow up Lacrosse Player Required: No Accompanied by: Self / Same As Patient Allergies Sulfa (Sulfonamide Antibiotics) Allergy (Unknown, Verified 07/10/25 13:19) Unknown Medication List - Last Reconciled 07/10/25 by Eamon Mcqueen MD atenolol 25 mg PO DAILY aabzmwjooi-nfjfqrtswhjmm-hedq 50-325-40 mg 2 tabs PO Q4-6H PRN cholecalciferol (vitamin D3) 50 mcg PO DAILY 90 days cyclobenzaprine 10 mg PO TID 30 days dicyclomine 20 mg PO QID hydrochlorothiazide 25 mg PO DAILY lorazepam 1 mg PO TID PRN 90 days oxycodone 5 mg PO Q4H PRN Tobacco use date assessed: 07/10/25 Dental Screening Dental Screen Date: 07/10/25 Did you have a dental visit in the last 12 months?: No Did you have a dental problem in the last 6 months where you did not have access to dental care?: No Was dental information given to patient?: Patient has dentist HPI 1 month follow up HPI Details Patient comes in today for her follow up visit States that she feels okay She denies any headaches or dizziness Denies any exertional chest pains or increased SOB Still has occasional palpitations that are mostly unchanged from before EKG, echocardiogram and 7-day Holter monitor were all done a couple of months ago and all of these tests came back normal No nausea/vomiting, no abdominal pain No change in bowel habits noted States that her low back pain and joint pains remain adequately controlled on her current Rx She will just need her pain medication and Lorazepam Rx refilled today PFSH Medical History Anxiety Vitamin D deficiency Pure hypercholesterolemia Essential hypertension S/P extracorporeal shock wave therapy Kidney stones Back pain Surgical History H/O cosmetic plastic surgery Hx of tonsillectomy History of tonsillectomy and adenoidectomy Family History Mother No problems noted. Father No problems noted. Social History Housing: House Alcohol intake: current Alcohol intake frequency: a few times a week Patient Tobacco Use Status: Never used Tobacco Tobacco use type: Cigarette e-Cigarette/Vaping Use: Never Used Second Hand Smoke Exposure: No service: No Current occupational status: disabled Cognitive needs: No Hearing needs: No Vision needs: Yes (reading glasses) Questionnaire PHQ-9 Over the last 2 weeks, how often have you been bothered by any of the following problems? Depression Screening Interpretation: Negative Depression Screening Done: Yes Source: Developed by Drs. Eric Muñoz, Cecelia Mckinney, Sukumar Maradiaga and colleagues, with an educational favian from [employer]. Thrive Questionnaire Date Thrive assessed: 05/07/25 I am a: Patient What is your living situation today?: I have a steady place to live Within the past 12 months, did the food you bought not last and you didn't have the money to get more?: Never true Within the past 12 months, did you worry whether your food would run out before you got money to buy more?: Never true Do you have trouble paying for medicines?: No Do you have trouble getting transportation to medical appointments?: No Do you have trouble paying your heating and electricity bill?: No Do you have trouble taking care of your child, family member or friend?: No Do you have trouble with day-to-day activities such as bathing, preparing meals, shopping, managing finances, etc.?: No Are you currently unemployed and looking for a job?: No Are you interested in more education?: No Please select the resources that you would like help with: None Currently or been in a relationship where the following occur: No concerns reported THRIVE Score: 0 AUDIT C Alcohol Use Questionnaire (AUDIT-C) 1. How often do you have a drink containing alcohol?: 2-4 times a month 2. How many drinks containing alcohol do you have on a typical day when you are drinking?: 1 or 2 3. How often do you have six or more drinks on one occasion?: Never Total Score: 2 Score Reviewed/Action Taken: Yes YULY-7 AMB Questionnaire YULY-7 Date YULY - 7 assessed: 05/07/25 Source: Developed by Drs. Eric Muñoz, Cecelia Mckinney, Sukumar Maradiaga and colleagues, with an educational favian from [employer]. Review of Systems Const Denies chills, Denies fatigue, Denies fever(s) and Denies headache(s) ENT Denies dysphagia, Denies dizziness, Denies otalgia, Denies headache(s), Denies neck pain, Denies odynophagia and Denies sore throat Card Denies chest pain, Reports palpitations (on and off ) and Denies dyspnea Resp Denies chest congestion, Denies cough and Denies dyspnea GI Denies abdominal pain, Denies constipation, Denies dysphagia, Denies heartburn, Denies diarrhea, Denies nausea, Denies odynophagia and Denies vomiting Denies difficulty voiding, Denies nocturia, Denies dysuria and Denies urinary urgency Musc Reports back pain (chronic) and Denies neck pain Skin/Breast Denies rash Neuro Denies dizziness and Denies headache(s) Psych Reports anxiety Endo Denies fatigue and Reports palpitations (on and off ) Physical exam (Primary Care) Vital Signs: Last Vital Signs Pulse 68 07/10/25 12:55 BP 110/80 07/10/25 12:55 Pulse Ox 98 07/10/25 12:55 Oxygen Delivery Method Room Air 07/10/25 12:55 BMI result Body Mass Index 24.1 Tobacco/Smoking Status: Tobacco use Status Tobacco use date assessed 07/10/25 07/10/25 13:03 Patient Tobacco Use Status Never used Tobacco 07/10/25 13:03 Tobacco use type Cigarette 07/10/25 13:03 e-Cigarette/Vaping Use Never Used 07/10/25 13:03 Depression Screening Interpretation: Negative Thrive Assessment: Date of Thrive Assessment Date Thrive assessed 05/07/25 07/10/25 13:03 Currently or been in a relationship where the following occur: No concerns reported Const General: no acute distress and alert HENMT Throat: Yes posterior oropharynx normal and Yes tonsils normal (no TP congestion) Neck Neck: Yes supple and No lymphadenopathy Thyroid: Thyroid normal Resp Auscultation: clear to auscultation bilaterally, no rales, no wheezes and diminished lung sounds (slightly) bilateral Cardio Rate: regular rate Rhythm: regular rhythm Heart sounds: no murmurs GI Palpation (GI): Soft to palpation and nontender Auscultation: normal bowel sounds General: Yes no CVA tenderness Back/Spine/Pelvis Back: no CVA tenderness Thoracic/Lumbar Spine: thoracic spinal tenderness and lumbar spinal tenderness Skin Rashes: no rashes Extrem General: Yes no clubbing, cyanosis or edema Coding Level of Care Code Est Pt Level 4 (49153) Diagnoses Intermittent palpitations R00.2 Pure hypercholesterolemia E78.00 Essential hypertension I10 Nonintractable episodic headache, unspecified headache type R51.9 Headache type: unspecified Headache chronicity pattern: episodic headache Intractability: not intractable Vitamin D deficiency E55.9 Other chronic back pain M54.89; G89.29 Back pain location: back pain in other location Chronicity: chronic Anxiety F41.9 Assessment & Plan Assessment & Plan (1) Intermittent palpitations: Code(s): R00.2 - Palpitations Category: Medical Plan: 12-lead EKG, echocardiogram and 7-day Holter monitor done over the past few months have all come back normal She is advised that if these continue to recur often, we can increase the dose of her current low-dose Atenolol to help control her symptoms Patient states that she would like to hold off on making any changes to her meds at this time but will call if her symptoms progress (2) Pure hypercholesterolemia: Code(s): E78.00 - Pure hypercholesterolemia, unspecified Category: Medical Plan: Reinforced low cholesterol diet Her cholesterol numbers have improved slightly when they were last checked in March 2025 and we will have her recheck her labs again next month for follow up Have advised patient that if she can continue to get her cholesterol numbers to improve significantly over the next few months, then we may not need to start her on any cholesterol-lowering medications (3) Essential hypertension: Code(s): I10 - Essential (primary) hypertension Category: Medical Plan: Reinforced low-sodium diet - goal is systolic BP of 120 mm or less Continue Hydrochlorothiazide 25 mg QD and Atenolol 25 mg QD (4) Headache: Code(s): R51.9 - Headache, unspecified Category: Medical Qualifiers: Headache type: unspecified Headache chronicity pattern: episodic headache Intractability: not intractable Qualified Code(s): R51.9 - Headache, unspecified Plan: Continue Fiorinal 50-325-40 mg 2 tablets Q 4 to 6 hours PRN but discussed with patient that I would like to try to wean her off this medication as much as possible If her headaches persist, will consider referring her to neurology for further evaluation and management (5) Vitamin D deficiency: Code(s): E55.9 - Vitamin D deficiency, unspecified Category: Medical Plan: Continue Vitamin D3 2000 units QD (6) Back pain: Comment: chronic Code(s): M54.9 - Dorsalgia, unspecified Category: Medical Qualifiers: Back pain location: back pain in other location Chronicity: chronic Qualified Code(s): M54.89 - Other dorsalgia; G89.29 - Other chronic pain Plan: Thoracic spine MRI done in 2012 revealed the presence of multilevel thoracic spine degenerative disc disease and lumbar spine MRI done in 2007 revealed primarily L4-L5 disc disease She has also reportedly been seen Dr. Velasquez for her back issues in the past and was reportedly advised that there are no surgical indications at the time and that she should just continue following up with her PCP for pain management We sent patient for updated thoracic and lumbar spine x-rays at her last visit and she had them done a few days ago, which came back showing only mild straightening of lumbar lordosis, with minimal levoscoliosis. Her thoracic and lumbar spine x-rays are otherwise grossly normal Reinforced activity and weight-lifting restrictions I will continue her again on her Oxycodone 5 mg Q 4 hours PRN for now (Rx refilled) but have advised patient that at some point soon I would like to lower down her dosing to no more than every 6-8 hours (maximum of 4 doses a day) rather than her current dose of 6 times a day and patient is agreeable to that Continue Cyclobenzaprine 10 mg TID PRN (7) Anxiety: Code(s): F41.9 - Anxiety disorder, unspecified Category: Medical Plan: Continue Lorazepam 1 mg TID PRN - Rx refilled Plan Follow up in 1 month Orders: Orders Complete Blood Count Auto Diff 08/05/25 D64.9 - Anemia, unspecified Comprehensive Speonk. Panel Fast 08/05/25 E78.00 - Pure hypercholesterolemia, unspecified TSH reflex Free T4 08/05/25 E78.00 - Pure hypercholesterolemia, unspecified UA CC w/rflx Micro + Cult 08/05/25 R30.0 - Dysuria Vitamin B12 and Folate 08/05/25 E53.8 - Deficiency of other specified B group vitamins Lipid Panel 08/05/25 E78.00 - Pure hypercholesterolemia, unspecified Vitamin D 25-OH Total 08/05/25 E55.9 - Vitamin D deficiency, unspecified Medications: Refilled lorazepam 1 mg PO TID PRN 90 tabs 0RF anxiety 90 days oxycodone Partial Fill upon patient request.chronic pain patient 5 mg PO Q4H PRN 168 tabs 0RF pain M51.9 - Unspecified thoracic, thoracolumbar and lumbosacral intervertebral disc disorder, M54.9 - Dorsalgia, unspecified
--- OUTSIDE RECORDS SUMMARY | 2025-07-10 16:02 | XMS_ITS | Patient Health Record ---
Author Organization [facility] Address [address] [place] [address] Care Team Providers Care Clinical Investigator Name Role Phone Hua Duarte MD Primary Care Provider Eric Ortiz Unavailable [phone] Allergies Allergen (clinical drug ingredient) Drug/Non Drug Allergy documented on EMR Reaction Allergy Type Onset Date Status Substance with sulfonamide structure and antibacterial mechanism of action (substance) Sulfa Antibiotics Unknown Drug Allergy Active Reason For Referral No Information Medications Medication SIG (Take, Route, Frequency, Duration) Notes Start Date End Date Status hydroCHLOROthiazide 25 MG Oral; Duration: 90 Active LORazepam 1 MG TAKE 1 TABLET BY MOUTH 3 TIMES A DAY NEEDED FOR ANXIETY Oral; Duration: 28 Active oxyCODONE-Acetaminophen 7.5-325 MG Oral; Duration: 28 4 every day for back pain Active Cyclobenzaprine HCl 10 MG Oral; Duration: 30 Active Atenolol 25 MG Oral; Duration: 90 Active Omeprazole 20 MG TAKE 1 CAPSULE EVERY MORNING; Duration: 90 Active Immunizations Vaccine Route Administration Date [...] Problem Status W/U Status Risk Notes Problem Screening for malignant neoplasm of colon (104694509) Encounter for screening for malignant neoplasm of colon (Z12.11) Active confirmed Problem Diverticular disease of colon (598701622) Diverticulosis of large intestine without perforation or abscess without bleeding (K57.30) Active confirmed Problem Gastroesophageal reflux disease (213500194) Gastroesophageal reflux disease (K21.9) Active confirmed Problem Gastritis (2477329) Gastritis (K29.70) Active c onfirmed Problem Abnormal findings diagnostic imaging of liver and biliary tract (920809968) Abnormal gallbladder ultrasound (R93.2) Active confirmed Problem Right upper quadrant pain (681753768) RUQ abdominal pain (R10.11) Active confirmed Problem Irritable bowel syndrome (64317287) Other irritable bowel syndrome (K58.8) Active confirmed Plan Of Treatment Pending Test Test Name Order Date NUC HIDA SCAN 01/04/2023 US ABD 11/16/2022 Future Test Test Name Order Date COLONOSCOPY 11/16/2022 Insurance Providers Payer Name Payer Address Payer Phone Subscriber Number Group Number Insured Name Patient Relationship to Insured Coverage Start Date Coverage End Date [facility] [address] [place] [phone] [id number] ELHAM SHELTON Self - patient is the insured Medical (General) History Medical History History ICD Code Kidney stones--ESWL Hypertension Chronic back pain Denies HI,DM,CVA,Lung disease,renal dise ase Surgical History Surgery Date(Month/Year) Tonsillectomy Facial cosmetic surgery
--- OUTSIDE RECORDS SUMMARY | 2025-07-10 16:02 | XMS_ITS | Clinical Summary ---
Author Organization [address] Address [address] [place] [address] Phone Care Team Providers Care Powerhouse Electrician Name Role Phone Eamon Mcqueen MD Primary Care Provider [phone] Surgical History Surgery Date Site/Laterality Comments TONSILLECTOMY ADENOIDECTOMY, BILATERAL MYRINGOTOMY AND TUBES PROCEDURE: [place] TONSILLECTOMY & ADENOIDECTOMY <AGE 10 OTHER SURGICAL HISTORY PROCEDURE: [place] ERCP DESTRUCTION/LITHOTRIPSY CALCULI ANY METHOD; COMMENT: mult [...] Health Maintenance Due Date Last Done Comments Colorectal Cancer Screening: Colonoscopy 1968 DTaP,Tdap,and Td Vaccines (1 - Tdap) 11/28/1987 Hepatitis B Vaccines (1 of 3 - 19+ 3-dose series) 11/28/1987 Pneumococcal Vaccine: 50+ Years (1 of 1 - PCV) 2018 Zoster Vaccines (1 of 2) 2018 Cervical Cancer Screening: P ap Smear 01/24/2022 01/24/2019 Depression Screening 09/26/2024 Cholesterol Screening (Lipid Panel) 03/13/2025 HIV Screening 03/13/2025 Hepatitis C Screening 03/13/2025 Hypertension/CHF/CAD Annual BMP Blood Test 03/13/2025 Social Influencers of Health Screening 03/13/2025 COVID-19 Vaccine ( - 2023-2 5 season) 2025 Influenza Vaccine (#1) 2025 08/26/2022 Breast Cancer Screening 03/14/2027 03/14/20 25, 01/25/2019 RSV Immunization Adult Patients (1 - 1-dose 75+ series) 11/28/2043 HIB Vaccines Aged Out No longer eligi [...] is recommended in 1 year. Mammo Location: [facility], [address] [place] [address], [address], . -------- FINAL REPORT -------- Dictated By: Cee Rees Dictated Date: 03/15/2025 09:00 ET Assigned Physician: Cee Rees Reviewed and Electronically Signed By: Cee Rees Signed Date: 03/15/2025 09:03 ET Workstation ID: [id number] Transcribed By: Self Edit Transcribed Date: 03/15/2025 [...] is recommended in 1 year. Mammo Location: [facility], [address] [place] [address], [address], . -------- FINAL REPORT -------- Dictated By: Cee Rees Dictated Date: 03/15/2025 09:00 ET Assigned Physician: Cee Rees Reviewed and Electronically Signed By: Cee Rees Signed Date: 03/15/2025 09:03 ET Workstation ID: [id number] Transcribed By: Self Edit Transcribed Date: 03/15/2025 09:00 ET Eamon Mcqueen MD IMG BI PROCEDURES Final Resu lt * Pap smear (01/24/2019) 01/24/2019 Narrative HISTORICAL TESTING LAB RESULTING AGENCY - 01/30/2019 5:25 PM EDT [id number] THINPREP PAP, IMAGED: NEGATIVE FOR SQUAMOUS INTRAEPITHELIAL LESION AND MALIGNANCY . ATROPHY. GERALDINE ALCAZAR , KATHYA(ASCP) (CASE ELECTRONICALLY SIGNED 01 30 2019) RESULT [...] Most Recently Relevant to Health Maintenance Insurance [facility] Care Teams Powerhouse Electrician Relationship Specialty Start Date End Date Eamon Mcqueen MD PCP - General Internal Medicine 03/12/25
--- OUTSIDE RECORDS SUMMARY | 2025-07-10 16:03 | XMS_ITS | Patient Health Record ---
[facility] Address [address] [place] [address] Care Team Providers Care Security Services Specialist Name Role Phone Hua Duarte MD Primary Care Provider Unavaila Aldair Cedeno Unavailable [phone] Allergies Allergen (clinical drug ingredient) Drug/Non Drug [...] Status W/U Status Risk Notes Problem Bursitis (37159113) Bursitis (727.3) Active confirmed Problem Neuralgia - Neuritis (729.2) Active confirmed Problem Myositis (12347806) Myositis (729.1) Active confirmed Problem Pain in limb (07312559) Pain in Limb (729.5) Active confirmed Problem Plantar fasciitis (001598353) Plantar Fasciitis (728.71) Active confirmed Plan Of Treatment Pending Test Test Name Order Date X ray : Foot, left 2V 07/24/2014 X ray : Foot, right 2V 07/24/2014 Insurance Providers Payer Name Payer Address Payer Phone Subscriber Number Group Number Insured Name Patient Relationship to Insured Coverage Start Date Coverage End Date [facility] [address] [place] [address] [id number] Goldie Martinez Self - patient is the insured Medical (General) History Medical History History ICD Code Anxiety Back,Hip,and Knee pain Headaches Chicken pox Surgical History Surgery Date(Month/Year) tonsillectomy and adenoidectomy 1985 kidney stones
== END 2025-07-10 13:34 | disposition home or self-care (01) ==
LOC: HO.HMCH 12:42
PROVIDERS: PCP Internal Medicine; Visit Provider Internal Medicine
DX: R00.2 Palpitations (principal); E78.00 Pure hypercholesterolemia, unspecified; I10 Essential (primary) hypertension; R51.9 Headache, unspecified; E55.9 Vitamin D deficiency, unspecified; M54.89 Other dorsalgia; G89.29 Other chronic pain; F41.9 Anxiety disorder, unspecified

== ENCOUNTER 2025-08-03 07:25 | Outpatient (REF) | payer BC, SELFPAY ==
--- OUTSIDE RECORDS SUMMARY | 2020-12-01 06:05 | XMS_ITS | Continuity of Care Document ---
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 Name Role Phone Diallo Howell Unavailable Unavailable Allergies, Adverse Reactions, Alerts Substance Reaction Status Criticality Sulfa (Sulfonamide Antibiotics) Active No Information Procedures Procedure Date Offic/outpt E&m [place] [address] Services provided in an urgent care cent er COVID-19 In House Advance Directives Directive Yes / No Effective Date File Name No Information Encounters Encounter Description Practice Location Reason(s) For Visit Diagnoses Date Provider Providers Copied on Encounter Offic/outpt E[facility], [address], [place], [place], [id number], [place] tel:[phone] Formerly [facility] Asymptomatic COVID evaluation (chief complaint) Close exposure to 2018 novel coronavirus Andre Landrum. [address], [address], [place], [address], [place]. tel:[phone] Family History Family Member Type Diagnosis Age At Onset No Information Payers Payer name Insurance type Covered green party ID Bhavna ayala(s) [place] [id number] Social History Type Description Quantity Date Captured Comments Alcohol Use Details Caffeine Use Details Unknown Tobacco Use Status Current non-smoker Smoking Status Never smoker Non-Smoking Tobacco Use Details : No Details Available : No Details Available Sex Female Vital Signs Date / Time: Height Weight BMI Pulse Rate Blood Pressure Temperature Respiratory Rate Body Surface Area Head Circumference Head Circ. Percentile Wt./Franco. Percentile BMI percentile Pulse Ox Inhaled Ox 11:15 AM 64.00 in 54.431 kg (120.00 lbs) 20.6 0 kg/m eter (2) 91 /min 148/83 mm[Hg] 98.50 F 18 /min 1.57 meter(2) 99 % Chief Complaint And Reason For Visit From encounter dated '12/01/2020 11:05'. Asymptomatic COVID evaluation (chief complaint). Description: Onset of symptoms was 2 days ago. Theduration is 2 Days. Symptoms are asymptomatic. Episodes occur asymptomatic. The patient notes asymptomatic. Context: traveling.She denies any presenting symptoms. The patient does not present with abdominal pain, anorexia, arthralgia, back pain, chills, cough, diarrhea, fatigue, fever, generalized weakness, headache, loss of smell, lymphadenopathy, myalgia, nasal congestion, nausea, runny nose, shortness of breath, sore throat, change in taste or vomiting. She denies a history of Age > 65, BMI > 40, Cardiovascular disease, Chronic kidney disease, Chronic lung disease, Immunocompromised, Hypertension, Diabetes, Travel. Denies aggravating factors. Denies relieving factors. Reason For Referral Reason For Referral No Information History Of Present Illness Encounter Date Complaint History Of Prese nt Illness Asymptomatic COVID evaluation On set of symptoms was 2 days ago. The duration is 2 Days. Symptoms are asymptomatic. Episodes occur asymptomatic. The patient notes asymptomatic. Context: traveling.She denies any presenting symptoms. The patient does not present with abdominal pain, anorexia, arthralgia, back pain, chills, cough, diarrhea, fatigue, fever, generalized weakness, headache, loss of smell, lymphadenopathy, myalgia, nasal congestion, nausea, runny nose, shortness of breath, sore throat, change in taste or vomiting. She denies a history of Age > 65, BMI > 40, Cardiovascular disease, Chronic kidney disease, Chronic lung disease, Immunocompromised, Hypertension, Diabetes, Travel. Denies aggravating factors. Denies relieving factors. Functional Status Date Functional Assessmen t No Information Instructions Date Instruction Nate smith Mar-08-2021 Follow-up with PCPER if not better or worse Related to Close exposure to 2019 novel coronavirus Assessments Type Assessment Date assessment Close exposure to 2019 novel cor onavirus Patient Care Teams Name Effective Dates (start - stop) Status Members No Information
--- OUTSIDE RECORDS SUMMARY | 2025-08-03 07:29 | XMS_ITS | Patient Health Record ---
Author Organization [facility] Address [address] [place] [address] Care Team Providers Care Saw Runner Name Role Phone Hua Duarte MD Primary Care Provider Eric Ortiz Unavailable [phone] Allergies Allergen (clinical drug ingredient) Drug/Non Drug [...] Problem Screening for malignant neoplasm of colon (520729992) Encounter for screening for malignant neoplasm of colon (Z12.11) Active confirmed Problem Diverticular disease of colon (848561273) Diverticulosis of large intestine without perforation or abscess without bleeding (K57.30) Active confirmed Problem Gastroesophageal reflux disease (380074841) Gastroesophageal reflux disease (K21.9) Active confirmed Problem Gastritis (3011441) Gastritis (K29.70) Active c onfirmed Problem Abnormal findings diagnostic imaging of liver and biliary tract (405550120) Abnormal gallbladder ultrasound (R93.2) Active confirmed Problem Right upper quadrant pain (309120526) RUQ abdominal pain (R10.11) Active confirmed Problem Irritable bowel syndrome (06483694) Other irritable bowel syndrome (K58.8) Active confirmed Plan Of Treatment Pending Test Test Name Order Date NUC HIDA SCAN 01/04/2023 US ABD 11/16/2022 Future Test Test Name Order Date COLONOSCOPY 11/16/2022 Insurance Providers Payer Name Payer Address Payer Phone Subscriber Number Group Number Insured Name Patient Relationship to Insured Coverage Start Date Coverage End Date [facility] [address] [place] [phone] [id number] ELHAM SHELTON Self - patient is the insured Medical (General) History Medical History History ICD Code Kidney stones--ESWL Hypertension Chronic back pain Denies [place],DM,CVA,Lung disease,renal dise ase Surgical History Surgery Date(Month/Year) Tonsillectomy Facial cosmetic surgery
--- OUTSIDE RECORDS SUMMARY | 2025-08-03 07:29 | XMS_ITS | Clinical Summary ---
Author Organization [address] Address [address] [place] [address] Phone Care Team Providers Care Director Of Sustainability Name Role Phone Eamon Mcqueen MD Primary Care Provider [phone] Surgical History Surgery Date Site/Laterality Comments TONSILLECTOMY ADENOIDECTOMY, BILATERAL MYRINGOTOMY AND TUBES PROCEDURE: [place] TONSILLECTOM[place] & ADENOIDECTOMY <AGE 10 OTHER SURGICAL HISTORY PROCEDURE: [place] ERCP DESTRUCTION/LITHOTRIPSY CALCULI ANY METHOD; COMMENT: mult [...] is recommended in 1 year. Mammo Location: [facility], [address] [place] [address], [address], . -------- FINAL REPORT -------- Dictated By: Cee Rees Dictated Date: 03/15/2025 09:00 ET Assigned Physician: Cee Rees Reviewed and Electronically Signed By: Cee Rees Signed Date: 03/15/2025 09:03 ET Workstation ID: [id number] Transcribed By: Self Edit Transcribed Date: 03/15/2025 [...] is recommended in 1 year. Mammo Location: [facility], [address] [place] [address], [address], . -------- FINAL REPORT -------- Dictated By: Cee Rees Dictated Date: 03/15/2025 09:00 ET Assigned Physician: Cee Rees Reviewed and Electronically Signed By: Cee Rees Signed Date: 03/15/2025 09:03 ET Workstation ID: [id number] Transcribed By: Self Edit Transcribed Date: 03/15/2025 09:00 ET Eamon Mcqueen MD IMG BI PROCEDURES Final Resu lt * Pap smear (01/24/2019) 01/24/2019 Narrative HISTORICAL TESTING LAB RESULTING AGENCY - 01/30/2019 5:25 PM EDT [id number] THINPREP PAP, IMAGED: NEGATIVE FOR SQUAMOUS INTRAEPITHELIAL [...] Recently Relevant to Health Maintenance Insurance [facility] Care Teams Director Of Sustainability Relationship Specialty Start Date End Date Eamon Mcqueen MD PCP - General Internal Medicine 03/12/25
--- OUTSIDE RECORDS SUMMARY | 2025-08-03 07:29 | XMS_ITS | Patient Health Record ---
Author Organization [facility] Address [address] [place] [address] Care Team Providers Care Title Department Manager Name Role Phone Hua Duarte MD Primary Care Provider Unavaila Aldair Cedeno Unavailable [phone] Allergies Allergen (clinical drug ingredient) Drug/Non Drug [...] Status W/U Status Risk Notes Problem Bursitis (94262924) Bursitis (727.3) Active confirmed Problem Neuralgia - Neuritis (729.2) Active confirmed Problem Myositis (85919975) Myositis (729.1) Active confirmed Problem Pain in limb (43795342) Pain in Limb (729.5) Active confirmed Problem Plantar fasciitis (120529465) Plantar Fasciitis (728.71) Active confirmed Plan Of Treatment Pending Test Test Name Order Date X ray : Foot, left 2V 07/24/2014 X ray : Foot, right 2V 07/24/2014 Insurance Providers Payer Name Payer Address Payer Phone Subscriber Number Group Number Insured Name Patient Relationship to Insured Coverage Start Date Coverage End Date [facility] [address] [place] [id number] Goldie Martinez Self - patient is the insured Medical (General) History Medical History History ICD Code Anxiety Back,Hip,and Knee pain Headaches Chicken pox Surgical History Surgery Date(Month/Year) tonsillectomy and adenoidectomy 1985 kidney stones
[2025-08-03 08:06] LABS: MANUAL DIFF FLAG NO
[2025-08-03 09:06] LABS: Appearance Urine Clear; Glucose Urine UA Negative (Negative); PH 5.5 (5.0-9.0); Specific Gravity - Urine 1.020 (1.005-1.025); UMIC TRIGGER UACC YES
[2025-08-03 09:09] LABS: Hematocrit 44.0 % (37.0-47.0); Hemoglobin 15.0 g/dl (12.0-16.0); Imm Gran Abs Auto 0.02 X10*3/uL (0.00-0.03); Imm Gran Pct Auto 0.4 % (0.0-0.4); Lymphocytes Absolute Auto 1.5 X10*3/uL (1.2-4.9); Mean Corpuscular HGB Conc 34.1 g/dl (31.0-35.0); Mean Corpuscular Hemoglobin 32.1 pg (27.0-33.0); Mean Corpuscular Volume 94.0 fL (80.0-98.0); NRBC Abs Auto 0.000 X10*3/uL (0.0-0.012); NRBC Pct Auto 0.0 /100WBC (0.0-0.2); Platelet Count 269 X10*3/uL (160-400); Red Blood Count 4.68 X10*6/uL (4.20-5.50); White Blood Count 4.7 X10*3/uL (4.8-10.8)
[2025-08-03 09:26] LABS: UACC Culture Trigger YES
[2025-08-03 09:54] LABS: Alanine Aminotransferase 23 U/L (0-31); Albumin Level 5.2 g/dL (3.5-5.0); Alkaline Phosphatase 61 U/L (39-117); Anion Gap 14 (12-20); Aspartate Amino Transferase 31 U/L (5-31); Blood Urea Nitrogen 17 mg/dL (9-16); Calcium 10.2 mg/dL (8.4-10.2); Carbon Dioxide 29 mmol/L (22-29); Chloride 104 mmol/L (96-108); Cholesterol 281 mg/dL (<200); Estimated Glomerular Filt Rate > 60; HDL Cholesterol 82 mg/dL (>40); Potassium 3.7 mmol/L (3.3-5.1); Sodium 143 mmol/L (135-145); Total Protein 8.2 g/dL (6.5-8.0); Triglycerides 95 mg/dL (<150)
[2025-08-03 10:29] LABS: Folate 13.4 ng/mL (> or = 4.0); Vitamin B12 869 pg/mL (200-900)
== END 2025-08-03 07:26 | disposition home or self-care (01) ==
LOC: HO.LAB 07:25
PROVIDERS: PCP Internal Medicine; Visit Provider Internal Medicine
DX: E53.8 Deficiency of other specified B group vitamins (principal); D64.9 Anemia, unspecified; E78.00 Pure hypercholesterolemia, unspecified; E55.9 Vitamin D deficiency, unspecified
CPT/HCPCS: 36415; 80053; 80061; 81001; 81003; 82306; 82607; 82746; 84443; 85025; 87086

== ENCOUNTER 2025-08-09 12:24 | Outpatient (AMB) | payer BC, SELFPAY ==
[2025-08-09 12:36] VITALS: BP 130/70; PULSE 57; O2SAT 96; BMI 24.0
--- NOTE | 2025-08-09 12:36 | A.OFFPC_ITS ---
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 Required: No Accompanied by: Self / Same As Patient Allergies Sulfa (Sulfonamide Antibiotics) Allergy (Unknown, Verified 08/09/25 12:51) Unknown Medication List - Last Reconciled 08/09/25 by Eamon Mcqueen MD atenolol 25 mg PO DAILY crywxhguhd-acdfyyyfudscn-dhcg 50-325-40 mg 2 tabs PO Q4-6H PRN cholecalciferol (vitamin D3) 50 mcg PO DAILY 90 days cyclobenzaprine 10 mg PO TID 30 days dicyclomine 20 mg PO QID hydrochlorothiazide 25 mg PO DAILY lorazepam 1 mg PO TID PRN 90 days oxycodone 5 mg PO Q4H PRN Tobacco use date assessed: 08/09/25 Dental Screening Dental Screen Date: 08/09/25 Did you have a dental visit in the last 12 months?: Yes Did you have a dental problem in the last 6 months where you did not have access to dental care?: No Was dental information given to patient?: Patient has dentist HPI 1 month follow up HPI Details Patient comes in today for her follow up visit States that she feels okay She denies any headaches or dizziness Denies any increased SOB or exertional chest pains; states that she still has occasional palpitations but these are mostly unchanged from before and occur very infrequently now EKG, echocardiogram and 7-day Holter monitor done a few months ago all came back normal No nausea/vomiting, no abdominal pain No change in bowel habits noted States that her low back pain and joint pains remain adequately controlled on her current Rx States that she just needs her Vitamin D Rx refilled today She had her follow up labs done last week - to discuss her results She would also like to get her flu shot today PFSH Medical History Anxiety Vitamin D deficiency Pure hypercholesterolemia Essential hypertension S/P extracorporeal shock wave therapy Kidney stones Back pain Surgical History H/O cosmetic plastic surgery Hx of tonsillectomy History of tonsillectomy and adenoidectomy Family History Mother No problems noted. Father No problems noted. Social History Housing: House Alcohol intake: current Alcohol intake frequency: a few times a week Patient Tobacco Use Status: Never used Tobacco Tobacco use type: Cigarette e-Cigarette/Vaping Use: Never Used Second Hand Smoke Exposure: No service: No Current occupational status: disabled Current occupational exposures/hazards: No Cognitive needs: No Hearing needs: No Vision needs: Yes (reading glasses) Questionnaire PHQ-9 Over the last 2 weeks, how often have you been bothered by any of the following problems? 1. Little interest or pleasure in doing things: not at all 2. Feeling down, depressed, or hopeless: not at all 3. Trouble falling or staying asleep, or sleeping too much: not at all 4. Feeling tired or having little energy: not at all 5. Poor appetite or overeating: not at all 6. Feeling bad about yourself - or that you are a failure or have let yourself or your family down: not at all 7. Trouble concentrating on things, such as reading the newspaper or watching television: not at all 8. Moving or speaking so slowly that other people could have noticed. Or the opposite - being so fidgety or restless that you have been moving around a lot more than usual: not at all 9. Thoughts that you would be better off or of hurting yourself in some way: not at all Total score: 0 Depression Screening Interpretation: Negative Depression Screening Done: Yes 06366 - PHQ-9 Billing: Yes Source: Developed by Drs. Eric Muñoz, Cecelia Mckinney, Sukumar Maradiaga and colleagues, with an educational favian from [employer]. Thrive Questionnaire Date Thrive assessed: 08/09/25 I am a: Patient What is your living situation today?: I have a steady place to live Within the past 12 months, did the food you bought not last and you didn't have the money to get more?: Never true Within the past 12 months, did you worry whether your food would run out before you got money to buy more?: Never true Do you have trouble paying for medicines?: No Do you have trouble getting transportation to medical appointments?: No Do you have trouble paying your heating and electricity bill?: No Do you have trouble taking care of your child, family member or friend?: No Do you have trouble with day-to-day activities such as bathing, preparing meals, shopping, managing finances, etc.?: No Are you currently unemployed and looking for a job?: No Are you interested in more education?: No Please select the resources that you would like help with: None Currently or been in a relationship where the following occur: No concerns reported THRIVE Score: 0 AUDIT C Alcohol Use Questionnaire (AUDIT-C) 1. How often do you have a drink containing alcohol?: 2-4 times a month 2. How many drinks containing alcohol do you have on a typical day when you are drinking?: 1 or 2 3. How often do you have six or more drinks on one occasion?: Never Total Score: 2 Score Reviewed/Action Taken: Yes YULY-7 AMB Questionnaire YULY-7 Date YULY - 7 assessed: 08/09/25 Feeling nervous, anxious, or on edge: 0 = Not at all Not being able to stop or control worryin = Not at all Worrying too much about different things: 0 = Not at all Trouble relaxin = Not at all Being so restless that it is hard to sit still: 0 = Not at all Becoming easily annoyed or irritable: 0 = Not at all Feeling afraid as if something awful might happen: 0 = Not at all Total YULY-7 score (0-4 normal; 5-9 mild; 10-14 moderate; 15-21 severe): 0 Source: Developed by Drs. Eric Muñoz, Cecelia Mckinney, Sukumar Maradiaga and colleagues, with an educational favian from [employer]. Review of Systems Const Denies chills, Denies fatigue, Denies fever(s) and Denies headache(s) ENT Denies dysphagia, Denies dizziness, Denies otalgia, Denies headache(s), Denies neck pain, Denies odynophagia and Denies sore throat Card Denies chest pain, Reports palpitations (on and off ) and Denies dyspnea Resp Denies chest congestion, Denies cough and Denies dyspnea GI Denies abdominal pain, Denies constipation, Denies dysphagia, Denies heartburn, Denies diarrhea, Denies nausea, Denies odynophagia and Denies vomiting Denies difficulty voiding, Denies nocturia, Denies dysuria and Denies urinary urgency Musc Reports back pain (chronic) and Denies neck pain Skin/Breast Denies rash Neuro Denies dizziness and Denies headache(s) Psych Reports anxiety Endo Denies fatigue and Reports palpitations (on and off ) Physical exam (Primary Care) Vital Signs: Last Vital Signs Pulse 57 08/09/25 12:36 BP 130/70 08/09/25 12:36 Pulse Ox 96 08/09/25 12:36 Oxygen Delivery Method Room Air 08/09/25 12:36 BMI result Body Mass Index 24.0 Tobacco/Smoking Status: Tobacco use Status Tobacco use date assessed 08/09/25 08/09/25 12:44 Patient Tobacco Use Status Never used Tobacco 08/09/25 12:44 Tobacco use type Cigarette 08/09/25 12:44 e-Cigarette/Vaping Use Never Used 08/09/25 12:44 PHQ-9: PHQ-9 Score PHQ-9: Total score 0 08/09/25 12:55 Depression Screening Interpretation: Negative Thrive Assessment: Date of Thrive Assessment Date Thrive assessed 08/09/25 08/09/25 12:44 Currently or been in a relationship where the following occur: No concerns reported Const General: no acute distress and alert HENMT Ears: TM's normal bilaterally and EAC's normal Throat: Yes posterior oropharynx normal and Yes tonsils normal (no TP congestion) Neck Neck: Yes supple and No lymphadenopathy Thyroid: Thyroid normal Resp Auscultation: clear to auscultation bilaterally, no rales, no wheezes and diminished lung sounds (slightly) bilateral Cardio Rate: regular rate Rhythm: regular rhythm Heart sounds: no murmurs GI Palpation (GI): Soft to palpation and nontender Auscultation: normal bowel sounds General: Yes no CVA tenderness Back/Spine/Pelvis Back: no CVA tenderness Thoracic/Lumbar Spine: thoracic spinal tenderness and lumbar spinal tenderness Skin Rashes: no rashes Extrem General: Yes no clubbing, cyanosis or edema Office Procedures Flu Questionnaire Does the patient have a severe egg allergy?: No Does the patient have severe life threatening allergies?: No Does the patient have a fever or illness today?: No Has the patient ever had Guillain-Hammond Syndrome?: No Has the patient ever had any past reaction to a flu shot?: No Immunizations Fluarix 1113-1780 (PF) 45 mcg (15 mcg x 3)/0.5 mL IM syringe Performing Provider: Eamon Mcqueen MD [facility]forming [facility] [place] [facility] Administered by: GIDEON Vega on 08/09/25 13:17 Dose Route Admin Location Dispensed Lot Number Expiration Date [place] [employer] 0.5 mL IM Left Deltoid 0.5 mL [id number] 03/25/26 [id number] [employer] VIS Given Date VIS Provided VIS Publication Date 08/09/25 Single Vaccine 24 Eligibility Eligibility Date Funding Source Not [facility] Eligible 08/09/25 Private Results Reviewed Results Reviewed: Laboratory Tests 08/03/25 08/03/25 07:56 08:05 WBC 4.7 L Hgb 15.0 Hct 44.0 Plt Count 269 D Sodium 143 Potassium 3.7 Creatinine 0.68 Estimated GFR > 60 Fasting Glucose 102 H Calcium 10.2 D AST 31 ALT 23 Triglycerides 95 Cholesterol 281 H LDL Cholesterol, Calc 180 H HDL Cholesterol 82 Vitamin B12 869 25-OH Vitamin D Total 67.8 TSH 1.48 Ur Specific [place] 1.020 Urine Protein Trace Urine Glucose (UA) Negative Urine Blood Negative Urine Nitrite Negative Ur Leukocyte Esterase Moderate (2+) H Coding Level of Care Code Est Pt Level 4 (71069) Diagnoses Intermittent palpitations R00.2 Pure hypercholesterolemia E78.00 Essential hypertension I10 Nonintractable episodic headache, unspecified headache type R51.9 Headache type: unspecified Headache chronicity pattern: episodic headache Intractability: not intractable Vitamin D deficiency E55.9 Other chronic back pain M54.89; G89.29 Back pain location: back pain in other location Chronicity: chronic Anxiety F41.9 Additional Codes PHQ-9 - 77816 - PHQ-9 Billing: Yes ([id number]) Assessment & Plan Assessment & Plan (1) Intermittent palpitations: Code(s): R00.2 - Palpitations Category: Medical Plan: 12-lead EKG, echocardiogram and 7-day Holter monitor done over the past few months have all come back normal Patient has been advised that if her symptoms continue to recur often, we can increase the dose of her current low-dose Atenolol to help control her symptoms Patient would like to hold off on making any changes to her meds at this time and will just call if her symptoms progress (2) Pure hypercholesterolemia: Code(s): E78.00 - Pure hypercholesterolemia, unspecified Category: Medical Plan: Results of her labs done last week reviewed and discussed with patient - she has been advised that her cholesterol levels have increased again from previous and her total cholesterol is now at 281 mg/dl and LDL cholesterol at 180 mg/dl Reinforced low cholesterol diet Have advised patient that if she cannot get her cholesterol numbers improved significantly over the next few months, then we may need to start her on cholesterol-lowering medications soon (3) Essential hypertension: Code(s): I10 - Essential (primary) hypertension Category: Medical Plan: Reinforced low-sodium diet - goal is systolic BP of 120 mm or less Continue Hydrochlorothiazide 25 mg QD and Atenolol 25 mg QD (4) Headache: Code(s): R51.9 - Headache, unspecified Category: Medical Qualifiers: Headache type: unspecified Headache chronicity pattern: episodic headache Intractability: not intractable Qualified Code(s): R51.9 - Headache, unspecified Plan: Continue Fiorinal 50-325-40 mg 2 tablets Q 4 to 6 hours PRN but have discussed with patient recently that I would like to try to wean her off this medication as much as possible If her headaches persist, will consider referring her to neurology for further evaluation and management (5) Vitamin D deficiency: Code(s): E55.9 - Vitamin D deficiency, unspecified Category: Medical Plan: Continue Vitamin D3 2000 units QD - Rx refilled (6) Back pain: Comment: chronic Code(s): M54.9 - Dorsalgia, unspecified Category: Medical Qualifiers: Back pain location: back pain in other location Chronicity: chronic Qualified Code(s): M54.89 - Other dorsalgia; G89.29 - Other chronic pain Plan: Thoracic spine MRI done in 2012 revealed the presence of multilevel thoracic spine degenerative disc disease and lumbar spine MRI done in 2007 revealed primarily L4-L5 disc disease She has also reportedly been seen Dr. Velasquez for her back issues in the past and was reportedly advised that there are no surgical indications at the time and that she should just continue following up with her PCP for pain management We sent patient for updated thoracic and lumbar spine x-rays at her last visit and she had them done a few days ago, which came back showing only mild straightening of lumbar lordosis, with minimal levoscoliosis. Her thoracic and lumbar spine x-rays are otherwise grossly normal Reinforced activity and weight-lifting restrictions I will continue her again on her Oxycodone 5 mg Q 4 hours PRN but have advised patient that at some point soon I would like to lower down her dosing to no more than every 6-8 hours (maximum of 4 doses a day) rather than her current dose of 6 times a day and patient was agreeable to that Continue Cyclobenzaprine 10 mg TID PRN (7) Anxiety: Code(s): F41.9 - Anxiety disorder, unspecified Category: Medical Plan: Continue Lorazepam 1 mg TID PRN Plan Per request, flu vaccine given to patient today Follow up in 1 month Orders: Orders Influenza [id number] Immunization Today Z23 - Encounter for immunization Medications: Refilled cholecalciferol (vitamin D3) 50 mcg PO DAILY 90 caps 3RF 90 days E55.9 - Vitamin D deficiency, unspecified lorazepam 1 mg PO TID PRN 270 tabs 0RF anxiety 90 days
--- OUTSIDE RECORDS SUMMARY | 2025-08-09 18:22 | XMS_ITS | Clinical Summary ---
Author Organization [address] Address [address] [place] [address] Phone Care Team Providers Care Exercise Rider Name Role Phone Eamon Mcqueen MD Primary Care Provider + [phone] Surgical History Surgery Date Site/Laterality Comments TONSILLECTOMY ADENOIDECTOMY, BILATERAL MYRINGOTOMY AND TUBES PROCEDURE: NM TONSILLECTOMY & ADENOIDECTOMY <AGE 10 OTHER SURGICAL HISTORY PROCEDURE: NM ERCP DESTRUCTION/LITHOTRIPSY CALCULI ANY METHOD; COMMENT: mult [...] Name Clin Term Term Plan of Treatment Upcoming Encounters Date Type Department Care Team (Late st Contact Info) Description 08/19/2025 3:30 PM EST Consult General Surgery - [address] [place] [address] Stephen Lainez MD [address] [place] [phone] Health Maintenance Due Date Last Done Comments [...] Health Screening 03/13/2025 COVID-19 Vaccine ( - 2024-2 6 season) 2025 Influenza Vaccine (#1) 2025 08/26/2022 [...] is recommended in 1 year. Mammo Location: [facility], [address] [place] [address], [id number], . -------- FINAL REPORT -------- Dictated By: Cee Rees Dictated Date: 03/15/2025 09:00 ET Assigned Physician: Cee Rees Reviewed and Electronically Signed By: Cee Rees Signed Date: 03/15/2025 09:03 ET Workstation ID: [id number] Transcribed By: Self Edit Transcribed Date: 03/15/2025 [...] is recommended in 1 year. Mammo Location: [facility], [address] [place] [address], [address], . -------- FINAL REPORT -------- Dictated By: Cee Rees Dictated Date: 03/15/2025 09:00 ET Assigned Physician: Cee Rees Reviewed and Electronically Signed By: Cee Rees Signed Date: 03/15/2025 09:03 ET Workstation ID: [id number] Transcribed By: Self Edit Transcribed Date: 03/15/2025 09:00 ET us Eamon Mcqueen MD IMG BI PROCEDURES Final Resu lt * Pap smear (01/24/2019) 01/24/2019 Narrative HISTORICAL TESTING LAB RESULTING AGENCY - 01/30/2019 5:25 PM EDT [id number] THINPREP PAP, IMAGED: NEGATIVE FOR SQUAMOUS INTRAEPITHELIAL [...] Recently Relevant to Health Maintenance Insurance [facility] Care Teams Exercise Rider Relationship Specialty Start Date End Date Eamon Mcqueen MD PCP - General Internal Medicine 03/12/25
--- OUTSIDE RECORDS SUMMARY | 2025-08-09 18:22 | XMS_ITS | Patient Health Record ---
[facility] Address [address] [place] [address] Care Team Providers Care Housecalls Nurse Name Role Phone Hua Duarte MD Primary Care Provider Unavaila Aldair Cedeno Unavailable [phone] Allergies Allergen (clinical drug ingredient) Drug/Non Drug [...] Status W/U Status Risk Notes Problem Bursitis (54948285) Bursitis (727.3) Active confirmed Problem Neuralgia - Neuritis (729.2) Active confirmed Problem Myositis (49960885) Myositis (729.1) Active confirmed Problem Pain in limb (02943280) Pain in Limb (729.5) Active confirmed Problem Plantar fasciitis (727592268) Plantar Fasciitis (728.71) Active confirmed Plan Of Treatment Pending Test Test Name Order Date X ray : Foot, left 2V 07/24/2014 X ray : Foot, right 2V 07/24/2014 Insurance Providers Payer Name Payer Address Payer Phone Subscriber Number Group Number Insured Name Patient Relationship to Insured Coverage Start Date Coverage End Date [facility] [address] [place] [address] [phone] [id number] Goldie Martinez Self - patient is the insured Medical (General) History Medical History History ICD Code Anxiety Back,Hip,and Knee pain Headaches Chicken pox Surgical History Surgery Date(Month/Year) tonsillectomy and adenoidectomy 1985 kidney stones
== END 2025-08-09 13:53 | disposition home or self-care (01) ==
LOC: HO.HMCH 12:24
PROVIDERS: PCP Internal Medicine; Visit Provider Internal Medicine
DX: R00.2 Palpitations (principal); E78.00 Pure hypercholesterolemia, unspecified; I10 Essential (primary) hypertension; R51.9 Headache, unspecified; E55.9 Vitamin D deficiency, unspecified; M54.89 Other dorsalgia; G89.29 Other chronic pain; F41.9 Anxiety disorder, unspecified; Z23 Encounter for immunization

== ENCOUNTER → 2025-08-09 12:24 | Outpatient (BNVA) | payer BC, SELFPAY | PROVIDERS: PCP Internal Medicine; Visit Provider Internal Medicine | DX: R00.2 Palpitations (principal); R07.9 Chest pain, unspecified; E78.00 Pure hypercholesterolemia, unspecified; I10 Essential (primary) hypertension; R51.9 Headache, unspecified; E55.9 Vitamin D deficiency, unspecified; M54.89 Other dorsalgia; G89.29 Other chronic pain; F41.9 Anxiety disorder, unspecified; Z23 Encounter for immunization | CPT/HCPCS: 90471; 90656; 96127 ==

== ENCOUNTER 2025-09-06 12:25 | Outpatient (AMB) | payer BC, SELFPAY ==
--- NOTE | 2025-09-06 12:39 | MHC.PC.OV ---
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 Required: No Accompanied by: Self / Same As Patient Allergies Sulfa (Sulfonamide Antibiotics) Allergy (Unknown, Verified 09/06/25 13:00) Unknown Medication List - Last Reconciled 09/06/25 by Eamon Mcqueen MD atenolol 25 mg PO DAILY ctcytyxfbl-ntkhdolwesdql-rpyw 50-325-40 mg 2 tabs PO Q4-6H PRN cholecalciferol (vitamin D3) 50 mcg PO DAILY 90 days cyclobenzaprine 10 mg PO TID 30 days dicyclomine 20 mg PO QID hydrochlorothiazide 25 mg PO DAILY lorazepam 1 mg PO TID PRN 90 days oxycodone 5 mg PO Q4H PRN Tobacco use date assessed: 09/06/25 Dental Screening Dental Screen Date: 09/06/25 Did you have a dental visit in the last 12 months?: Yes Did you have a dental problem in the last 6 months where you did not have access to dental care?: No Was dental information given to patient?: Patient has dentist HPI Med Review HPI Details Patient comes in today for her follow up visit States that she feels okay States that she just completed her dermatology treatment on her face and presently still has some soreness and discoloration over certain areas She denies any headaches or dizziness Denies any increased SOB or exertional chest pains; still has occasional palpitations but states that these occur very rarely No nausea/vomiting, no abdominal pain No change in bowel habits noted States that her low back pain and joint pains remain adequately controlled on her current Rx She will be heading down to [place] for the winter in a few days and will not be back up here until sometime in early December 2025 [facility] Medical History Anxiety Vitamin D deficiency Pure hypercholesterolemia Essential hypertension S/P extracorporeal shock wave therapy Kidney stones Back pain Surgical History H/O cosmetic plastic surgery Hx of tonsillectomy History of tonsillectomy and adenoidectomy Family History Mother No problems noted. Father No problems noted. Social History Housing: House Alcohol intake: current Alcohol intake frequency: a few times a week Patient Tobacco Use Status: Never used Tobacco Tobacco use type: Cigarette e-Cigarette/Vaping Use: Never Used Second Hand Smoke Exposure: No service: No Current occupational status: disabled Current occupational exposures/hazards: No Cognitive needs: No Hearing needs: No Vision needs: Yes (reading glasses) Questionnaire PHQ-9 Over the last 2 weeks, how often have you been bothered by any of the following problems? 1. Little interest or pleasure in doing things: not at all 2. Feeling down, depressed, or hopeless: not at all 3. Trouble falling or staying asleep, or sleeping too much: not at all 4. Feeling tired or having little energy: not at all 5. Poor appetite or overeating: not at all 6. Feeling bad about yourself - or that you are a failure or have let yourself or your family down: not at all 7. Trouble concentrating on things, such as reading the newspaper or watching television: not at all 8. Moving or speaking so slowly that other people could have noticed. Or the opposite - being so fidgety or restless that you have been moving around a lot more than usual: not at all 9. Thoughts that you would be better off or of hurting yourself in some way: not at all Total score: 0 Depression Screening Interpretation: Negative Depression Screening Done: Yes 77514 - PHQ-9 Billing: Yes Source: Developed by Drs. Eric Muñoz, Cecelia Mckinney, Sukumar Maradiaga and colleagues, with an educational favian from [employer]. Thrive Questionnaire Date Thrive assessed: 09/06/25 I am a: Patient What is your living situation today?: I have a steady place to live Within the past 12 months, did the food you bought not last and you didn't have the money to get more?: Never true Within the past 12 months, did you worry whether your food would run out before you got money to buy more?: Never true Do you have trouble paying for medicines?: No Do you have trouble getting transportation to medical appointments?: No Do you have trouble paying your heating and electricity bill?: No Do you have trouble taking care of your child, family member or friend?: No Do you have trouble with day-to-day activities such as bathing, preparing meals, shopping, managing finances, etc.?: No Are you currently unemployed and looking for a job?: No Are you interested in more education?: No Please select the resources that you would like help with: None Currently or been in a relationship where the following occur: No concerns reported THRIVE Score: 0 AUDIT C Alcohol Use Questionnaire (AUDIT-C) 1. How often do you have a drink containing alcohol?: 2-4 times a month 2. How many drinks containing alcohol do you have on a typical day when you are drinking?: 1 or 2 3. How often do you have six or more drinks on one occasion?: Never Total Score: 2 Score Reviewed/Action Taken: Yes YULY-7 AMB Questionnaire YULY-7 Date YULY - 7 assessed: 09/06/25 Feeling nervous, anxious, or on edge: 0 = Not at all Not being able to stop or control worryin = Not at all Worrying too much about different things: 0 = Not at all Trouble relaxin = Not at all Being so restless that it is hard to sit still: 0 = Not at all Becoming easily annoyed or irritable: 0 = Not at all Feeling afraid as if something awful might happen: 0 = Not at all Total YULY-7 score (0-4 normal; 5-9 mild; 10-14 moderate; 15-21 severe): 0 Source: Developed by Drs. Eric Muñoz, Cecelia Mckinney, Sukumar Maradiaga and colleagues, with an educational favian from [employer]. Review of Systems Const Denies chills, Denies fatigue, Denies fever(s) and Denies headache(s) ENT Denies dysphagia, Denies dizziness, Denies otalgia, Denies headache(s), Denies neck pain, Denies odynophagia and Denies sore throat Card Denies chest pain, Reports palpitations (on and off ) and Denies dyspnea Resp Denies chest congestion, Denies cough and Denies dyspnea GI Denies abdominal pain, Denies constipation, Denies dysphagia, Denies heartburn, Denies diarrhea, Denies nausea, Denies odynophagia and Denies vomiting Denies difficulty voiding, Denies nocturia, Denies dysuria and Denies urinary urgency Musc Reports back pain (chronic) and Denies neck pain Skin/Breast Details: (+) few scattered discolored areas on the face (see HPI) Denies rash Neuro Denies dizziness and Denies headache(s) Psych Reports anxiety Endo Denies fatigue and Reports palpitations (on and off ) Physical exam (Primary Care) Vital Signs: Last Vital Signs Pulse 62 09/06/25 12:40 BP 116/74 09/06/25 12:40 Pulse Ox 98 09/06/25 12:40 Oxygen Delivery Method Room Air 09/06/25 12:40 BMI result Body Mass Index 23.7 Tobacco/Smoking Status: Tobacco use Status Tobacco use date assessed 09/06/25 09/06/25 12:49 Patient Tobacco Use Status Never used Tobacco 09/06/25 12:49 Tobacco use type Cigarette 09/06/25 12:49 e-Cigarette/Vaping Use Never Used 09/06/25 12:49 PHQ-9: PHQ-9 Score PHQ-9: Total score 0 09/06/25 12:49 Depression Screening Interpretation: Negative Thrive Assessment: Date of Thrive Assessment Date Thrive assessed 09/06/25 09/06/25 12:49 Currently or been in a relationship where the following occur: No concerns reported Const General: no acute distress and alert HENMT Ears: TM's normal bilaterally and EAC's normal Throat: Yes posterior oropharynx normal and Yes tonsils normal (no TP congestion) Neck Neck: Yes supple and No lymphadenopathy Thyroid: Thyroid normal Resp Auscultation: clear to auscultation bilaterally, no crackles, no rales and no wheezes Cardio Rate: regular rate Rhythm: regular rhythm Heart sounds: no murmurs GI Palpation (GI): Soft to palpation and nontender Auscultation: normal bowel sounds General: Yes no CVA tenderness Back/Spine/Pelvis Back: no CVA tenderness Thoracic/Lumbar Spine: thoracic spinal tenderness and lumbar spinal tenderness Skin Rashes: no rashes Extrem General: Yes no clubbing, cyanosis or edema Coding Level of Care Code Est Pt Level 4 (92445) Diagnoses Other chronic back pain M54.89; G89.29 Back pain location: back pain in other location Chronicity: chronic Intermittent palpitations R00.2 Pure hypercholesterolemia E78.00 Essential hypertension I10 Nonintractable episodic headache, unspecified headache type R51.9 Headache type: unspecified Headache chronicity pattern: episodic headache Intractability: not intractable Vitamin D deficiency E55.9 Anxiety F41.9 Additional Codes PHQ-9 - 48535 - PHQ-9 Billing: Yes ([id number]) Assessment & Plan Assessment & Plan (1) Back pain: Comment: chronic Code(s): M54.9 - Dorsalgia, unspecified Category: Medical Qualifiers: Back pain location: back pain in other location Chronicity: chronic Qualified Code(s): M54.89 - Other dorsalgia; G89.29 - Other chronic pain Plan: Thoracic spine MRI done in 2012 revealed the presence of multilevel thoracic spine degenerative disc disease and lumbar spine MRI in 2007 revealed primarily L4-L5 disc disease She has also been seen Dr. eVlasquez for her back issues in the past and was reportedly advised that there are no surgical indications at the time and that she should just continue following up with her PCP for pain management We sent patient for updated thoracic and lumbar spine x-rays earlier this year and she had them done back in January 2025 - her x-rays came back showing only mild straightening of lumbar lordosis, with minimal levoscoliosis; her thoracic and lumbar spine x-rays are otherwise grossly normal Reinforced activity and weight-lifting restrictions Continue Oxycodone 5 mg Q 4 hours PRN and have again advised patient that at some point, I would like to lower down her dosing to no more than every 6-8 hours (maximum of 4 doses a day) rather than her current dose of 6 times a day and patient was agreeable to that Continue Cyclobenzaprine 10 mg TID PRN (2) Intermittent palpitations: Code(s): R00.2 - Palpitations Category: Medical Plan: 12-lead EKG, echocardiogram and 7-day Holter monitor done over the past few months have all come back normal Patient has been advised that if her symptoms continue to recur often, we can increase the dose of her current low-dose Atenolol to help control her symptoms Patient would like to hold off on making any changes to her meds at this time as she feels that her symptoms have calmed down a lot - she will just reach out to us if her symptoms progress (3) Pure hypercholesterolemia: Code(s): E78.00 - Pure hypercholesterolemia, unspecified Category: Medical Plan: Her cholesterol levels have increased again from previous on her recent labs done a couple of months ago - her total cholesterol was then at 281 mg/dl and LDL cholesterol at 180 mg/dl Reinforced low cholesterol diet Have advised patient that if she cannot get her cholesterol numbers improved significantly over the next few months, then we may need to start her on cholesterol-lowering medications soon We will have her recheck her labs in December 2025 just before she returns for her appointment then (4) Essential hypertension: Code(s): I10 - Essential (primary) hypertension Category: Medical Plan: Reinforced low-sodium diet - goal is systolic BP of 120 mm or less Continue Hydrochlorothiazide 25 mg QD and Atenolol 25 mg QD (5) Headache: Code(s): R51.9 - Headache, unspecified Category: Medical Qualifiers: Headache type: unspecified Headache chronicity pattern: episodic headache Intractability: not intractable Qualified Code(s): R51.9 - Headache, unspecified Plan: Continue Fiorinal 50-325-40 mg 2 tablets Q 4 to 6 hours PRN but have discussed with patient recently that I would like to try to wean her off this medication as much as possible If her headaches persist, will consider referring her to neurology for further evaluation and management (6) Vitamin D deficiency: Code(s): E55.9 - Vitamin D deficiency, unspecified Category: Medical Plan: Continue Vitamin D3 2000 units QD (7) Anxiety: Code(s): F41.9 - Anxiety disorder, unspecified Category: Medical Plan: Continue Lorazepam 1 mg TID PRN Plan Follow up in December 2025 when patient returns from her winter stay down in [place] Orders: Orders Complete Blood Count Auto Diff 12/28/25 D64.9 - Anemia, unspecified TSH reflex Free T4 12/28/25 E78.00 - Pure hypercholesterolemia, unspecified Vitamin D 25-OH Total 12/28/25 E55.9 - Vitamin D deficiency, unspecified Comprehensive [place]. Panel Fast 12/28/25 E78.00 - Pure hypercholesterolemia, unspecified Lipid Panel 12/28/25 E78.00 - Pure hypercholesterolemia, unspecified UA CC w/rflx Micro + Cult 12/28/25 R30.0 - Dysuria
[2025-09-06 12:40] VITALS: BP 116/74; PULSE 62; O2SAT 98; BMI 23.7
--- OUTSIDE RECORDS SUMMARY | 2025-09-06 17:59 | XMS_ITS | Patient Health Record ---
Author Organization [facility] Address [address] [place] [address] Care Team Providers Care Baker Helper Name Role Phone Hua Duarte MD Primary Care Provider Unavaila Aldair Cedeno Unavailable [phone] Allergies Allergen (clinical drug ingredient) Drug/Non Drug [...] Status W/U Status Risk Notes Problem Bursitis (56737936) Bursitis (727.3) Active confirmed Problem Neuralgia - Neuritis (729.2) Active confirmed Problem Myositis (66573191) Myositis (729.1) Active confirmed Problem Pain in limb (21280069) Pain in Limb (729.5) Active confirmed Problem Plantar fasciitis (572447006) Plantar Fasciitis (728.71) Active confirmed Plan Of Treatment Pending Test Test Name Order Date X ray : Foot, left 2V 07/24/2014 X ray : Foot, right 2V 07/24/2014 Insurance Providers Payer Name Payer Address Payer Phone Subscriber Number Group Number Insured Name Patient Relationship to Insured Coverage Start Date Coverage End Date [facility] [address] [place] [address] [id number] Goldie Martinez Self - patient is the insured Medical (General) History Medical History History ICD Code Anxiety Back,Hip,and Knee pain Headaches Chicken pox Surgical History Surgery Date(Month/Year) tonsillectomy and adenoidectomy 1985 kidney stones
--- OUTSIDE RECORDS SUMMARY | 2025-09-06 17:59 | XMS_ITS | Patient Health Record ---
Author Organization [facility] Address [address] [place] [id number] Care Team Providers Care Refund Clerk Name Role Phone Hua Duarte MD Primary Care Provider Eric Ortiz Unavailable [phone] Allergies Allergen (clinical drug ingredient) Drug/Non Drug Allergy documented on EMR Reaction Allergy Type Onset Date Status Substance with sulfonamide structure and antibacterial mechanism of action (substance) Sulfa Antibiotics Unknown Drug Allergy Active Reason For Referral No Information Medications Medication SIG (Take, Route, Frequency, Duration) Notes Start Date End Date Status hydroCHLOROthiazide 25 MG Tablet Oral; Duration: 90 Active LORazepam 1 MG Tablet TAKE 1 TABLET BY MOUTH 3 TIMES A DAY NEEDED FOR ANXIETY Oral; Duration: 28 Active oxyCODONE-Acetaminophen 7.5-325 MG Tablet Oral; Duration: 28 4 every day for back pain Active Cyclobenzaprine HCl 10 MG Tablet Oral; Duration: 30 Active Atenolol 25 MG Tablet Oral; Duration: 90 Active Omeprazole 20 MG Capsule Delayed Release TAKE 1 CAPSULE EVERY MORNING; Duration: 90 Active Immunizations Vaccine Route Administration Date Status Comme nts Influenza Unknown 08/26/2022 Administered Social History Tobacco Use: Social History Observation Description Date Details (start date - stop date) Never Smoker NA - NA Social History Drugs/Alcohol: Social Info Question Answer Notes Alcohol Screen Did you have a drink containing alcohol in the past year? Yes How often did you have a drink containing alcohol in the past year? 4 or more times a week (4 points) How many drinks did you have on a typical day when you were drinking in the past year? 1 or 2 drinks (0 point) How often did you have 6 or more drinks on one occasion in the past year? Never (0 point) Points 4 Interpretation Positive Tobacco Use: Social Info Question Answer Notes Tobacco Use/Smoking Patient is a nonsmoker Additional Details Category Social Info Options Details Miscellaneous: Marital status: Occupation: retired Section Notes: 2 glasses of wine at dinner; nonsmoker Problems Problem Type SNOMED Code ICD Code Onset Dates Problem Status W/U Status Risk Notes Problem Screening for malignant neoplasm of colon (296736129) Encounter for screening for malignant neoplasm of colon (Z12.11) Active confirmed Problem Diverticular disease of colon (145353108) Diverticulosis of large intestine without perforation or abscess without bleeding (K57.30) Active confirmed Problem Gastroesophageal reflux disease (106158425) Gastroesophageal reflux disease (K21.9) Active confirmed Problem Gastritis (6649589) Gastritis (K29.70) Active c onfirmed Problem Abnormal findings diagnostic imaging of liver and biliary tract (736370751) Abnormal gallbladder ultrasound (R93.2) Active confirmed Problem Right upper quadrant pain (439402063) RUQ abdominal pain (R10.11) Active confirmed Problem Irritable bowel syndrome (99156011) Other irritable bowel syndrome (K58.8) Active confirmed Plan Of Treatment Pending Test Test Name Order Date NUC HIDA SCAN 01/04/2023 US ABD 11/16/2022 Future Test Test Name Order Date COLONOSCOPY 11/16/2022 Insurance Providers Payer Name Payer Address Payer Phone Subscriber Number Group Number Insured Name Patient Relationship to Insured Coverage Start Date Coverage End Date [facility] [address] [place] [phone] [id number] ELHAM SHELTON Self - patient is the insured Medical (General) History Medical History History ICD Code Kidney stones--ESWL Hypertension Chronic back pain Denies AR,DM,CVA,Lung disease,renal dise ase Surgical History Surgery Date(Month/Year) Tonsillectomy Facial cosmetic surgery
--- OUTSIDE RECORDS SUMMARY | 2025-09-06 17:59 | XMS_ITS | Clinical Summary ---
Author Organization [address] Address [address] [place] [address] Phone Care Team Providers Care Assistant Men'S Soccer Coach Name Role Phone Eamon Mcqueen MD Primary Care Provider [phone] Allergies Active Allergy Reactions Criticality Noted Date Comments Sulfa (Sulfonamide Antibiotics) Unknown 07/28 Medications LORazepam (ATIVAN) 1 mg tablet TAKE 1 TABLET ORALLY 3 TIMES A DAY NEEDED FOR ANXIETY FOR 90 DAYS Active oxyCODONE (ROXICODONE) 5 mg immediate release tablet TAKE 1 TABLET BY MOUTH EVERY 4 HOURS NEEDED FOR CHRONIC PAIN 08/05/2025 Active hydroCHLOROthia zide (HYDRODIURIL) 25 mg tablet Take 1 tablet (25 mg total) by mouth 1 (one) time each day. Active atenoloL (TENORMIN) 25 mg tablet Take 1 tablet (25 mg total) by mouth 1 (one) time each day. Active cholecalciferol (VITAMIN D-3) 50 mcg (2,000 unit) capsule Take 1 capsule (2,000 Units total) by mouth 1 (one) time each day. 05/08/2025 Active Encounters Date Type Department Care Team Description 08/19/2025 3:30 PM EST Consult General Surgery - [address] [place] [address] Stephen Lainez MD Lipoma of left forearm (Primary Dx); Epidermal inclusion cyst from Last 3 Months Surgical History Surgery Date Site/Laterality Comments TONSILLECTOMY ADENOIDECTOMY, BILATERAL MYRINGOTOMY AND TUBES PROCEDURE: ID TONSILLECTOMY & ADENOIDECTOMY <AGE 10 OTHER SURGICAL HISTORY PROCEDURE: ID ERCP DESTRUCTION/LITHOTRIPSY CALCULI ANY METHOD; COMMENT: mult [...] 2 2 Date Outcome GA Total Labor Labor//3rd Weight Sex Type Anes PTL Jada A1 A5 Name Clin Term Term Last Filed Vital Signs Vital Sign Reading Time Taken Comments Blood Pressure 134/75 08/19/2025 3:35 PM EST Pulse 66 08/19/2025 3:35 PM EST Temperature - - Respiratory Rate - - Oxygen Saturation - - Inhaled Oxygen Concentration - - Weight 62.7 kg (138 lb 3.2 oz) 08/19/2025 3:35 P M EST Height 162.6 cm (5' 4 ) 08/19/2025 3:35 PM EST Body Mass Index 23.72 08/19/2025 3:35 PM EST Plan of Treatment Upcoming Encounters Date Type Department Care Team ([facility] st Contact Info) Description 02/14/2026 10:00 AM EDT Procedure visit General Surgery - [address] [place] [phone] Stephen Lainez MD [address] [place] [phone] Health Maintenance Due Date Last Done [...] is recommended in 1 year. Mammo Location: [facility], [address] [place] [address], [id number], . -------- FINAL REPORT -------- Dictated By: Cee Rees Dictated Date: 03/15/2025 09:00 ET Assigned Physician: Cee Rees Reviewed and Electronically Signed By: Cee Rees Signed Date: 03/15/2025 09:03 ET Workstation ID: [id number] Transcribed By: Self Edit Transcribed Date: 03/15/2025 [...] is recommended in 1 year. Mammo Location: [facility], [address] [place] [address], [phone], . -------- FINAL REPORT -------- Dictated By: Cee Rees Dictated Date: 03/15/2025 09:00 ET Assigned Physician: Cee Rees Reviewed and Electronically Signed By: Cee Rees Signed Date: 03/15/2025 09:03 ET Workstation ID: [id number] Transcribed By: Self Edit Transcribed Date: 03/15/2025 09:00 ET us Eamon Mcqueen MD IMG BI PROCEDURES Final Resu lt * Pap smear (01/24/2019) 01/24/2019 Narrative HISTORICAL TESTING LAB RESULTING AGENCY - 01/30/2019 5:25 PM EDT [id number] THINPREP PAP, IMAGED: NEGATIVE FOR SQUAMOUS INTRAEPITHELIAL [...] Most Recently Relevant to Health Maintenance Insurance [facility] Care Teams Assistant Men'S Soccer Coach Relationship Specialty Start Date End Date Eamon Mcqueen MD [address] [place] [phone] PCP - General Internal Medicine 08/19/25
== END 2025-09-06 13:10 | disposition home or self-care (01) ==
LOC: HO.HMCH 12:25
PROVIDERS: PCP Internal Medicine; Visit Provider Internal Medicine
DX: M54.89 Other dorsalgia (principal); G89.29 Other chronic pain; R00.2 Palpitations; E78.00 Pure hypercholesterolemia, unspecified; I10 Essential (primary) hypertension; R51.9 Headache, unspecified; E55.9 Vitamin D deficiency, unspecified; F41.9 Anxiety disorder, unspecified

== ENCOUNTER → 2025-09-06 12:25 | Outpatient (BNVA) | payer BC, SELFPAY | PROVIDERS: PCP Internal Medicine; Visit Provider Internal Medicine | DX: M54.89 Other dorsalgia (principal); G89.29 Other chronic pain; R00.2 Palpitations; E78.00 Pure hypercholesterolemia, unspecified; I10 Essential (primary) hypertension; R51.9 Headache, unspecified; E55.9 Vitamin D deficiency, unspecified; F41.9 Anxiety disorder, unspecified | CPT/HCPCS: 96127 ==